=== PATIENT | male | born 1950 | race Caucasian/White ===

== ENCOUNTER 2019-03-17 17:06 | Emergency (ER) | payer MEDICARE ==
[~2019-03-17] VITALS: Ht 188 cm; Wt 108.9 kg
--- NOTE | 2019-03-17 17:27 | ED Neurological Problem ---
General Chief Complaint: Neuro-Stroke Like Symptoms Stated Complaint: STROKE LIKE SYMPTOMS Source: patient Exam Limitations: no limitations History of Present Illness Date Seen by Provider: Mar 17, 2019 Time Seen by Provider: 17:22 Initial Comments To ER per private vehicle from home with reports of strokelike symptoms. This began this morning about 10 or 10:30 AM while he was in [place] with his at a swim meet. He noticed that he was having some trouble walking because of dizziness and he felt as though one of his legs (cannot recall which one) didn't seem to work as well as the other. He feels some numbness around the left side of his mouth beginning 30 minutes ago, a progression of the gait abnormal ity beginning 30 minutes ago as well. He also noticed himself just recently about 30 minutes ago to have some difficulty swallowing water. 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 He did see his primary care provider Dr. Garcia about one hour ago for these symptoms. Timing/Duration: other Severity: moderate Associated Symptoms: No confusion, No fatigue, No fever/chills, No insomnia, No loss of consciousness, No muscle spasms, No nausea/vomiting, No numbness in legs/feet, No paresthesia, No ringing in ears, No seizures, No slurred speech, No tingling in legs/feet; trouble walking; No vision changes Allergies and Home Medications Allergies Coded Allergies: No Known Drug Allergies (Unverified , 03/17/19) Patient Home Medication List Home Medication List Reviewed: Yes Review of Systems Review of Systems Constitutional: see HPI Eyes: No Symptoms Reported Ears, Nose, Mouth, Throat: no symptoms reported Respiratory: no symptoms reported Cardiovascular: no symptoms reported Genitourinary: no symptoms reported Musculoskeletal: no symptoms reported Skin: no symptoms reported Psychiatric/Neurological: See HPI Endocrine: No Symptoms Reported Hematologic/Lymphatic: No Symptoms Reported Past Zalglsb-Zvknay-Shoczu Hx Patient Social History Recent Foreign Travel: No Contact w/Someone Who Travel: No Physical Exam Vital Signs Vital Signs - First Documented 03/17/19 03/17/19 17:10 20:28 Temp 96.7 Pulse 72 Resp 16 B/P (MAP) 164/85 (111) Pulse Ox 99 O2 Delivery Room Air Capillary Refill : Height, Weight, BMI Height: '" Weight: lbs. oz. kg; BMI Method: General Appearance: WD/WN, no apparent distress HEENT: PERRL/EOMI, normal ENT inspection, TMs normal, other (no nystagmus) Neck: non-tender Respiratory: normal breath sounds, no respiratory distress, no accessory muscle use Cardiovascular: regular rate, rhythm, no murmur, other (sinus at 70s. BP 160s systolic. ) Gastrointestinal: normal bowel sounds, non tender, soft Extremities: normal range of motion, non-tender Neurologic/Psychiatric: alert, normal mood/affect, oriented x 3 Crainal Nerves: normal hearing, normal speech, PERRL Coordination/Gait: normal finger to nose Motor/Sensory: no motor deficit, no sensory deficit Skin: normal color, warm/dry Despite his reports, strength of both lower extremities is 5 out of 5. There is no ataxia. NIH stroke scale on arrival is 0 Stroke Onset of Symptoms Date of Onset of Symptoms: Mar 17, 2019 Time of Symptom Onset: 10:00 Onset of Symptoms: Yes Symptoms onset unknown: No NIH Stroke Scale Assessment Select: Initial Level of Consciousness: 0=Alert (0), Level of Consciousness- Questions: 0=Answers both month/age (0), LOC Commands: 0=Performs both tasks (0), Gaze: Normal (0), Visual Rodriguez: 0=No visual loss (0), Facial Movement (Facial Paresis): 0=Normal symmetrical mnt (0), Motor Function-Arms Right: 0=No drift (0), Motor Function-Arms Left: 0=No drift (0), Motor Function-Legs Right: 0=No drift (0), Motor Function-Legs Left: 0=No drift (0), Limb Ataxia: 0=Absent (0), Sensory: 0=Normal:no loss (0), Best Language: 0=No aphasia (0), Dysarthria: 0=Normal (0), Extinction & Inattention: 0=No abnormality (0), Total: 0 Stroke Thrombolytic Exclusion Age 18 or Over: Yes Acute intenal hemorrhage: No History of CVA: No Uncontrolled Coagulation Defec: No Intracranial Hemorrhage: No Severe Hypertension: No GI or Bleed: No Subarachnoid Hemorrhage: No Intracranial Neoplasm/Aneurysm: No Oral Anticoagulants: Yes Surgery or Trauma: No Recent CPR: No Diabetic Hemorrhagic Retinopat: No Organ Biopsy: No Recent Obstetric Delivery: No Glucose: No Significant Hepatic Dysfunctio: No NIH Stoke Scale >22: No Bacterial Endocarditis: No Pericarditis: No Improving Symptoms: No Platelets: No TPA Contraindication: No Progress/Results/Core Measures Results/Orders Lab Results Laboratory Tests Test 03/17/19 17:10 03/17/19 17:12 03/17/19 19:19 Range/Units White Blood Count 10.4 4.3-11.0 10^3/uL Red Blood Count 4.54 4.35-5.85 10^6/uL Hemoglobin 13.4 13.3-17.7 G/DL Hematocrit 41 40-54 % Mean Corpuscular Volume 89 80-99 FL Mean Corpuscular Hemoglobin 30 25-34 PG Mean Corpuscular Hemoglobin Concent 33 32-36 G/DL Red Cell Distribution Width 14.4 10.0-14.5 % Platelet Count 236 130-400 10^3/uL Mean Platelet Volume 10.1 7.4-10.4 FL Neutrophils (%) (Auto) 66 42-75 % Lymphocytes (%) (Auto) 24 12-44 % Monocytes (%) (Auto) 9 0-12 % Eosinophils (%) (Auto) 1 0-10 % Basophils (%) (Auto) 0 0-10 % Neutrophils # (Auto) 6.9 1.8-7.8 X 10^3 Lymphocytes # (Auto) 2.5 1.0-4.0 X 10^3 Monocytes # (Auto) 0.9 0.0-1.0 X 10^3 Eosinophils # (Auto) 0.1 0.0-0.3 10^3/uL Basophils # (Auto) 0.0 0.0-0.1 10^3/uL Prothrombin Time 24.7 H 12.2-14.7 SEC INR Comment 2.1 H 0.8-1.4 Activated Partial Thromboplast Time 34 24-35 SEC D-Dimer 2.03 H 0.00-0.49 UG/ML Sodium Level 139 135-145 MMOL/L Potassium Level 4.2 3.6-5.0 MMOL/L Chloride Level 106 98-107 MMOL/L Carbon Dioxide Level 20 L 21-32 MMOL/L Anion Gap 13 5-14 MMOL/L Blood Urea Nitrogen 20 H 7-18 MG/DL Creatinine 1.81 H 0.60-1.30 MG/DL Estimat Glomerular Filtration Rate 37 BUN/Creatinine Ratio 11 Glucose Level 132 H 70-105 MG/DL Calcium Level 9.1 8.5-10.1 MG/DL Corrected Calcium 8.9 8.5-10.1 MG/DL Total Bilirubin 0.5 0.1-1.0 MG/DL Aspartate Amino Transf (AST/SGOT) 26 5-34 U/L Alanine Aminotransferase (ALT/SGPT) 16 0-55 U/L Alkaline Phosphatase 84 40-136 U/L Troponin I < 0.028 <0.028 NG/ML Total Protein 7.4 6.4-8.2 GM/DL Albumin 4.2 3.2-4.5 GM/DL Serum Alcohol < 10 <10 MG/DL Glucometer 127 H 70-110 MG/DL Urine Color YELLOW Urine Clarity CLEAR Urine pH 7 5-9 Urine Specific [place] 1.010 L 1.016-1.022 Urine Protein 2+ H NEGATIVE Urine Glucose (UA) NEGATIVE NEGATIVE Urine Ketones 1+ H NEGATIVE Urine Nitrite NEGATIVE NEGATIVE Urine Bilirubin NEGATIVE NEGATIVE Urine Urobilinogen NORMAL NORMAL MG/DL Urine Leukocyte Esterase 1+ H NEGATIVE Urine RBC (Auto) 2+ H NEGATIVE Urine RBC 5-10 H /HPF Urine WBC 0-2 /HPF Urine Squamous Epithelial Cells 0-2 /HPF Urine Crystals NONE /LPF Urine Bacteria TRACE /HPF Urine Casts NONE /LPF Urine Mucus SMALL H /LPF Urine Culture Indicated NO Urine Opiates Screen NEGATIVE NEGATIVE Urine Oxycodone Screen NEGATIVE NEGATIVE Urine Methadone Screen NEGATIVE NEGATIVE Urine Propoxyphene Screen NEGATIVE NEGATIVE Urine Barbiturates Screen NEGATIVE NEGATIVE Ur Tricyclic Antidepressants Screen NEGATIVE NEGATIVE Urine Phencyclidine Screen NEGATIVE NEGATIVE Urine Amphetamines Screen NEGATIVE NEGATIVE Urine Methamphetamines Screen NEGATIVE NEGATIVE Urine Benzodiazepines Screen NEGATIVE NEGATIVE Urine Cocaine Screen NEGATIVE NEGATIVE Urine Cannabinoids Screen NEGATIVE NEGATIVE My Orders Orders - TUAN MONTEIRO HAND UMBRELLA TIPPER Cbc With Automated Diff (03/17/19 17:21) Protime With Inr (03/17/19 17:21) Partial Thromboplastin Time (03/17/19 17:21) Comprehensive Metabolic Panel (03/17/19 17:21) Fibrin Degradation Products (03/17/19 17:21) Troponin I (03/17/19 17:21) Ua Culture If Indicated (03/17/19 17:21) Chest 1 View, Ap/Pa Only (03/17/19 17:21) Ekg Tracing (03/17/19 17:21) Accucheck Stat ONCE (03/17/19 17:21) Ed Iv/Invasive Line Start (03/17/19 17:21) Ed Iv/Invasive Line Start (03/17/19 17:21) Vital Signs Stroke Patient Q15M (03/17/19 17:21) Ct Head Wo-R/O Stroke (03/17/19 17:21) O2 (03/17/19 17:21) Intake & Output 06,14,22 (03/17/19 17:21) Monitor-Rhythm Ecg Trace Only (03/17/19 17:21) Dysphagia Screening Tool (03/17/19 17:21) Post Thrombolytic Adminstratio (03/17/19 17:21) Alcohol (03/17/19 17:36) Ondansetron Injection (Zofran Injectio (03/17/19 18:00) Lactated Ringers (Lr 1000 Ml Iv Solution (03/17/19 18:15) Famotidine Injection (Pepcid Injection) (03/17/19 18:15) Ondansetron Injection (Zofran Injectio (03/17/19 18:15) Drug Screen Stat (Urine) (03/17/19 19:09) Ns Iv 500 Ml (Sodium Chloride 0.9%) (03/17/19 19:30) Medications Given in ED Current Medications Medications Dose Ordered Sig/Osman Route Start Time Stop Time Status Last Admin Dose Admin Ondansetron HCl 8 mg ONCE ONCE IVP 03/17/19 18:00 03/17/19 18:01 DC 03/17/19 17:56 8 MG Vital Signs/I&O 03/17/19 03/17/19 17:10 20:28 Temp 96.7 98.4 Pulse 72 64 Resp 16 18 B/P (MAP) 164/85 (111) 142/86 (104) Pulse Ox 99 97 O2 Delivery Room Air Diagnostic Imaging Diagonstic Imaging: Xray Plain Films/CT/US/NM/MRI: chest Comments NAME: RUSSEL GUERRERO [facility] REC#: [id number] PT STATUS: REG ER : 1950 PHYSICIAN: TUAN MONTEIRO APRN ADMIT DATE: 03/17/19/ER Draft Date of Exam:03/17/19 CHEST 1 VIEW, AP/PA ONLY INDICATION: Difficulty walking. TIME OF EXAM: 05:30 p.m. COMPARISON: No prior studies are available for comparison. FINDINGS: Heart size is normal. There is some minimal density in the right mid lung. Otherwise, the lungs are clear. Pulmonary vascularity is normal. No effusion or pneumothorax is seen. IMPRESSION: Minimal patchy density in right mid lung which may indicate mild pneumonia or atelectasis. The study is otherwise unremarkable. Dictated on workstation # [id number] Dict: 03/17/19 1740 Trans: 03/17/19 1744 [id number] Interpreted by: SHARLA TYSON MD Electronically signed by: Departure Communication (Admissions) Family Conversation 2011-he states that he overall feels much better, no residual tingling around his lips, chest x-ray shows suggestion of pneumonia right middle lobe, patient denies fevers chills, or shortness of breath. This is likely atelectasis and I will not treat with antibiotic. He feels well enough to go home, have the nurse get him up to walk him ensure that he can ambulate without difficulty or weakness, then discharged to home. The repeat NIH just prior to discharge is still 0. Blood pressure is 140s over 70s, he feels better, he is able to walk up and down the hallway without assistance. He is able to drink a glass of water without any difficulty. States he only lives 5 minutes from the hospital, assures she'll come back with him if they notice any recurrent symptoms. This could represent TIA versus heat illness, suspects he related illness. NAME: RUSSEL GUERRERO [facility] REC#: [id number] PT STATUS: REG ER : 1950 PHYSICIAN: TUAN MONTEIRO APRN ADMIT DATE: 03/17/19/ER Draft Date of Exam:03/17/19 CHEST 1 VIEW, AP/PA ONLY INDICATION: Difficulty walking. TIME OF EXAM: 05:30 p.m. COMPARISON: No prior studies are available for comparison. FINDINGS: Heart size is normal. There is some minimal density in the right mid lung. Otherwise, the lungs are clear. Pulmonary vascularity is normal. No effusion or pneumothorax is seen. IMPRESSION: Minimal patchy density in right mid lung which may indicate mild pneumonia or atelectasis. The study is otherwise unremarkable. Dictated on workstation # [id number] Dict: 03/17/19 1740 Trans: 03/17/19 1744 [id number] Interpreted by: SHARLA TYSON MD Electronically signed by: Impression Primary Impression: Weak Additional Impression: TIA (transient ischemic attack) Disposition: 01 HOME, SELF-CARE Condition: Stable Departure-Patient Inst. Decision time for Depature: 20:13 Referrals: CHARLENE GARCIA MD (PCP/Family) Primary Care Physician Patient Instructions: Generalized Weakness, Transient Ischemic Attack Add. Discharge Instructions: 1. Return to ER for any recurrent or worsening symptoms. Follow-up with your doctor to call tomorrow to make an appointment to be seen. Continue all current medications. All discharge instructions reviewed with patient and/or family. Voiced understanding. TUAN MONTEIRO APRN Mar 17, 2019 17:26
[2019-03-17] MEDS ORDERED: PRAV40TA2 (17:40)
[2019-03-17] MEDS ORDERED: WARF3TAB56 (17:40)
--- NOTE | 2019-03-17 17:45 | Diagnostic Imaging Report ---
INDICATION: Difficulty walking. TIME OF EXAM: 05:30 p.m. COMPARISON: No prior studies are available for comparison. FINDINGS: Heart size is normal. There is some minimal density in the right mid lung. Otherwise, the lungs are clear. Pulmonary vascularity is normal. No effusion or pneumothorax is seen. IMPRESSION: Minimal patchy density in right mid lung which may indicate mild pneumonia or atelectasis. The study is otherwise unremarkable. Dictated by: Dictated on workstation # [id number]
--- NOTE | 2019-03-17 17:48 | Diagnostic Imaging Report ---
PROCEDURE: CT head wo r/o stroke. TECHNIQUE: Multiple contiguous axial images were obtained through the brain without the use of intravenous contrast. Auto Exposure Controls were utilized during the CT exam to meet ALARA standards for radiation dose reduction. INDICATION: Difficulty walking and nausea. COMPARISON: No prior studies are available for comparison. FINDINGS: Ventricles and sulci are within normal limits. No sulcal effacement or midline shift is seen. No acute intra-axial or extra-axial hemorrhage is detected. Cisterns are patent. Visualized paranasal sinuses are clear. IMPRESSION: No acute intracranial process is detected. Results were called to Jorje Byrne nurse practitioner in Emergency Department at 05:42 p.m. Dictated by: Dictated on workstation # [id number]
[2019-03-17 17:49] LABS: BASOPHILS % (AUTO) 0 % (0-10); EOSINOPHILS # (AUTO) 0.1 10^3/uL (0.0-0.3); EOSINOPHILS % (AUTO) 1 % (0-10); HEMATOCRIT 41 % (40-54); HEMOGLOBIN 13.4 G/DL (13.3-17.7); LYMPHOCYTES # (AUTO) 2.5 X 10^3 (1.0-4.0); LYMPHOCYTES % (AUTO) 24 % (12-44); MEAN CORPUSCULAR HEMOGLOBIN 30 PG (25-34); MEAN CORPUSCULAR HGB CONC 33 G/DL (32-36); MEAN CORPUSCULAR VOLUME 89 FL (80-99); MEAN PLATELET VOLUME 10.1 FL (7.4-10.4); MONOCYTES # (AUTO) 0.9 X 10^3 (0.0-1.0); MONOCYTES % (AUTO) 9 % (0-12); NEUTROPHILS # (AUTO) 6.9 X 10^3 (1.8-7.8); NEUTROPHILS % (AUTO) 66 % (42-75); PLATELET COUNT 236 10^3/uL (130-400); RED CELL DISTRIBUTION WIDTH 14.4 % (10.0-14.5); WHITE BLOOD COUNT 10.4 10^3/uL (4.3-11.0)
[2019-03-17 17:56] LABS: FIBRIN DEGRADATION PRODUCTS 2.03 UG/ML (0.00-0.49); INR 2.1 (0.8-1.4); PROTHROMBIN TIME PATIENT 24.7 SEC (12.2-14.7)
[2019-03-17] MEDS ORDERED: ONDANSETRON 4 MG/2 ML (SDV) Z0FRAN IVP ONE ×2 (18:00→18:15)
--- NOTE | 2019-03-17 18:00 | NUR ---
pt reports the numbness around his mouth is gone and he reports he thinks his speach is normal for him. Dipti Byrne informed.
[2019-03-17 18:03] LABS: ALANINE AMINOTRANSFERASE 16 U/L (0-55); ALBUMIN 4.2 GM/DL (3.2-4.5); ALKALINE PHOSPHATASE 84 U/L (40-136); BILIRUBIN,TOTAL 0.5 MG/DL (0.1-1.0); BUN/CREATININE RATIO 11; CALCIUM 9.1 MG/DL (8.5-10.1); CARBON DIOXIDE 20 MMOL/L (21-32); CHLORIDE 106 MMOL/L (98-107); CREATININE SERUM 1.81 MG/DL (0.60-1.30); GFR ESTIMATED 37; GLUCOSE 132 MG/DL (70-105); POTASSIUM 4.2 MMOL/L (3.6-5.0); SODIUM 139 MMOL/L (135-145); TOTAL PROTEIN 7.4 GM/DL (6.4-8.2)
[2019-03-17] MEDS ORDERED: LACTATED RINGERS 1,000 ML IV SCH (18:15)
[2019-03-17] MEDS ORDERED: FAMOTIDINE 20MG/2ML IV (PEPCID) IVP ONE (18:15)
--- OUTSIDE RECORDS SUMMARY | 2019-03-17 19:03 | XMS REPORT ---
Author Tania Watts [facility] eClinicalWorks Address Unknown Phone Unavailable Care Team Providers Care Benefits Technician Name Role Phone Tania Ma CP Unavailable Allergies No Known Allergies Problems Problem Type Condition ICD-9 Code Onset Dates Condition Status Problem Chest pain, unspecified 786.50 Inactive Problem Unspecified venous (peripheral) insufficiency 459.81 Active Problem Problems related to high-risk sexual behavior V69.2 Active Problem Anticoagulated V58.61 Active Problem Snoring 786.09 Active Problem Left hip pain 719.45 Active Problem Venous embolism and thrombosis of deep vessels of proximal lower 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.41 Active Problem Personal history of venous thrombosis and embolism V12.51 Inactive Problem Venous insufficiency 459.81 Active Problem History of DVT (deep vein thrombosis) V12.51 Active Assessment Anticoagulated V58.61 Active Problem Rdncsgcnat-ewccslm-tcyzrmzez, combined [DTP] [DtaP] V06.1 Inactive Assessment Venous embolism and thrombosis of deep vessels of proximal lower 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.41 Active Problem Rosacea 695.3 Inactive Problem Impacted cerumen 380.4 Inactive Problem Counseling NOS V65.40 Inactive Problem Other and unspecified hyperlipidemia 272.4 Active Problem Need for prophylactic vaccination and inoculation, Influenza V04.81 Inactive Problem Venous embolism and thrombosis of other specified veins 453.8 Active Medications Medication Code System Code Instructions Start Date End Date Status Dosage Metronidazole [facility] 80259739964 0.75 APPLY EXTERNALLY DAILY NEEDED Multi-Vitamin [facility] [address]-72 Oral 1 qd without vitamin k Warfarin Sodium [facility] 86407957068 5 TAKE ONE TABLET BY MOUTH 5 TIMES A WEEK ON SUN, MON, WED, SAT, SAT. ALONG WITH 3MG. Cyclobenzaprine HCl [facility] [address]-18 10 MG Orally Three times a day Sep 30, 2014 November 26, 2014 1 tablet Coumadin [facility] [address]-27 3 MG Oral 1 (one) daily as directed Sep 28, 2013 not defined Metrogel [facility] [address]-71 0.75 % External 1 daily January 05, 2009 apply daily as directed Voltaren [facility] [address]-03 1 % Transdermal four times daily Jun 01, 2014 as directed Clobetasol Propionate [facility] [address]-41 0.05 % Externally Twice a day Jun 01, 2014 1 application to affected area Lortab [facility] [address]-30 5-325 MG Orally three times a day Oct 13, 2014 1 tablet as needed Alive [employer] [facility] [address]48-76234 Oral not defined Propranolol HCl [facility] [address]-95 10 Oral one tablet prn Apr 02, 2008 called in to [facility] at [address] Procedures Procedure Coding System Code Date Billed by outside source CPT-4 NOBLL November 04, 2014 Results No Known Results Summary Purpose eClinicalWorks Submission
--- OUTSIDE RECORDS SUMMARY | 2019-03-17 19:03 | XMS REPORT ---
Author Tania Watts [facility] eClinicalWorks Address Unknown Phone Unavailable Care Team Providers Care Auxiliary Engineer Name Role Phone Tania Ma CP Unavailable [...] DVT (deep vein thrombosis) V12.51 Active Assessment Venous embolism and thrombosis of deep vessels of proximal lower 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.41 Active Problem Mojundiniw-ibbzokr-rpxvdggfe, combined [DTP] [DtaP] V06.1 Inactive Assessment Anticoagulated V58.61 Active Assessment History of DVT (deep vein thrombosis) V12.51 Active Problem Rosacea 695.3 Inactive Problem Impacted cerumen 380.4 Inactive Problem Counseling NOS V65.40 Inactive Problem Other and unspecified hyperlipidemia 272.4 Active Problem Need for prophylactic vaccination and inoculation, Influenza V04.81 Inactive Problem Venous embolism and thrombosis of other specified veins 453.8 Active Medications Medication Code System Code Instructions Start Date End Date Status Dosage Multi-Vitamin [facility] [address]-20 Oral 1 qd without vitamin k Propranolol HCl [facility] [address]-60 10 Oral one tablet prn Apr 02, 2008 called in to [facility] at [address] [facility] [address]-17 5-325 MG Orally three times a day Oct 13, 2014 1 tablet as needed Cyclobenzaprine HCl [facility] [address]-15 10 MG Orally Three times a day Sep 30, 2014 November 26, 2014 1 tablet Metrogel [facility] [address]-60 0.75 % External 1 daily January 05, 2009 apply daily as directed Metronidazole [facility] 94606297800 0.75 APPLY EXTERNALLY DAILY NEEDED Voltaren [facility] [address]-15 1 % Transdermal four times daily Jun 01, 2014 as directed Warfarin Sodium [facility] 33271752140 5 TAKE ONE TABLET BY MOUTH 5 TIMES A WEEK ON SUN, MON, WED, FRI, SAT. ALONG WITH 3MG. Clobetasol Propionate [facility] [address]-48 0.05 % Externally Twice a day Jun 01, 2014 1 application to affected area [employer] [facility] [address] Oral not defined Coumadin [facility] [address]-64 3 MG Oral 1 (one) daily as directed Sep 28, 2013 not defined Procedures Procedure Coding System Code Date Billed by outside source CPT-4 NOBLL November 22, 2014 Results No Known Results Summary Purpose eClinicalWorks Submission
--- OUTSIDE RECORDS SUMMARY | 2019-03-17 19:03 | XMS REPORT ---
Author Tanai Watts [facility] eClinicalWorks Address Unknown Phone Unavailable Care Team Providers Care Salmon Gillnet Vessel Operator Name Role Phone Tania Ma CP Unavailable Allergies No Known Allergies Problems Problem Type Condition Code Onset Dates Condition Status Problem Venous insufficiency 459.81 Active Problem Left hip pain 719.45 Active Problem Snoring 786.09 Active Problem Acute venous embolism and thrombosis of superficial veins of upper extremity I82.619 Active Assessment Acute venous embolism and thrombosis of superficial veins of upper extremity I82.619 Active Problem Anticoagulated Z79.01 Active Problem Acute thromboembolism of deep veins of proximal leg I82.4Y9 Active Problem Obesity 278.00 Active Problem DJD (degenerative joint disease) 715.90 Active Problem Personal history of other venous thrombosis and embolism Z86.718 Active Problem History of pulmonary embolus (PE) V12.55 Active Problem Counseling NOS V65.40 Inactive Problem Need for prophylactic vaccination and inoculation, Influenza V04.81 Inactive Assessment Anticoagulated Z79.01 Active Problem Cclmrcgdad-ahbesfm-khqzwvwqd, combined [DTP] [DtaP] V06.1 Inactive Problem Other and unspecified hyperlipidemia 272.4 Active Problem Chest pain, unspecified 786.50 Inactive Problem Rosacea 695.3 Inactive Problem Problems related to high-risk sexual behavior V69.2 Active Problem Impacted cerumen 380.4 Inactive Problem Personal history of venous thrombosis and embolism V12.51 Inactive Medications Medication Code System Code Instructions Start Date End Date Status Dosage Metrogel [facility] [address]-29 0.75 % External 1 daily January 05, 2009 apply daily as directed Aleve [facility] [address]-29 220 MG Orally not defined Promethazine-Codeine [facility] [address]-40 6.25-10 MG/5ML Orally every 6 hrs Aug 24, 2015 5 ml as needed Propranolol HCl [facility] [address]-23 10 Oral one tablet prn Apr 02, 2008 called in to [facility] [place] Clobetasol Propionate [facility] [address]-08 0.05 % Externally Twice a day Jun 01, 2014 1 application to affected area Lortab [facility] [address]-81 5-325 MG Orally three times a day Oct 13, 2014 1 tablet as needed Warfarin Sodium [facility] [address]-52 6 MG Orally Once a day TAKE ONE TABLET BY MOUTH 5 TIMES A WEEK ON SUN, MON, SAT, SAT, SAT. ALONG WITH 3MG. Warfarin Sodium [facility] [address]-11 1 MG Orally Once a day 1 tablet Voltaren [facility] [address]-09 1 % Transdermal four times daily Jun 01, 2014 as directed Procedures Procedure Coding System Code Date Billed by outside source CPT-4 NOBLL Sep 16, 2015 Results Name Result Date Reference Range Unit Abnormality Flag Prothrombin Time (PT, INR) 98652 ----INR 2.8 20150916 0.8-1.2 H ----Prothrombin Time 29.3 20150916 9.1-12.0 sec H Summary Purpose eClinicalWorks Submission
--- OUTSIDE RECORDS SUMMARY | 2019-03-17 19:03 | XMS REPORT ---
Author Tania Watts Organization eClinicalWorks Address Unknown Phone Unavailable Care Team Providers Care Legal Document Specialist Name Role Phone Tania Ma CP Unavailable [...] DVT (deep vein thrombosis) V12.51 Active Assessment Osteoarthritis of left hip 715.95 Active Problem Aouyonlwla-hqaehiq-fgpziwhsm, combined [DTP] [DtaP] V06.1 Inactive Problem Rosacea 695.3 Inactive Problem Impacted cerumen 380.4 Inactive Problem Counseling NOS V65.40 Inactive Problem Other and unspecified hyperlipidemia 272.4 Active Problem Need for prophylactic vaccination and inoculation, Influenza V04.81 Inactive Problem Venous embolism and thrombosis of other specified veins 453.8 Active Medications No Known Medications Results No Known Results Summary Purpose eClinicalWorks Submission
--- OUTSIDE RECORDS SUMMARY | 2019-03-17 19:03 | XMS REPORT ---
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 Active Problem Obesity 278.00 Active Assessment Anticoagulated V58.61 Active Problem DJD (degenerative joint disease) 715.90 Active Assessment Venous embolism and thrombosis of other specified veins 453.8 Active Problem History of pulmonary embolus (PE) V12.55 Active Problem Snoring 786.09 Active Problem Venous insufficiency 459.81 Active Problem Left hip pain 719.45 Active Problem Anticoagulated V58.61 Active Problem Need for prophylactic vaccination and inoculation, Influenza V04.81 Inactive Problem Rosacea 695.3 Inactive Problem Cltiovszuo-cbufrrf-sxeflsmmx, combined [DTP] [DtaP] V06.1 Inactive Problem Counseling NOS V65.40 Inactive Problem Venous embolism and thrombosis of other specified veins 453.8 Active Problem Chest pain, unspecified 786.50 Inactive Problem Impacted cerumen 380.4 Inactive Problem Problems related to high-risk sexual behavior V69.2 Active Problem Other and unspecified hyperlipidemia 272.4 Active Problem Unspecified venous (peripheral) insufficiency 459.81 Active Medications Medication Code System Code Instructions Start Date End Date Status Dosage Coumadin [facility] [address]-17 3 MG Oral 1 (one) daily as directed Sep 28, 2013 not defined Multi-Vitamin [facility] [address]-85 Oral 1 qd without vitamin k Warfarin Sodium [facility] [address]-72 6 MG Orally Once a day TAKE ONE TABLET BY MOUTH 5 TIMES A WEEK ON SUN, MON, WED, FRI, SAT. ALONG WITH 3MG. Lortab [facility] [address]-54 5-325 MG Orally three times a day Oct 13, 2014 1 tablet as needed Propranolol HCl [facility] [address]-19 10 Oral one tablet prn Apr 02, 2008 called in [facility] [place] [address] [facility] [address]-14 1 % Transdermal four times daily Jun 01, 2014 as directed Clobetasol Propionate [facility] [address]-51 0.05 % Externally Twice a day Jun 01, 2014 1 application to affected area Coumadin [facility] [address]-62 4 MG Orally Once a day Apr 04, 2015 1 tablet Clindamycin HCl [facility] [address]-29 300 MG Orally every 8 hrs Apr 04, 2015 1 capsule Aleve [facility] [address]-24 220 MG Orally not defined Metrogel [facility] [address]-42 0.75 % External 1 daily January 05, 2009 apply daily as directed Metronidazole [facility] [id number] 0.75 APPLY EXTERNALLY DAILY NEEDED Procedures Procedure Coding System Code Date Billed by outside source CPT-4 NOBLL Apr 12, 2015 Results No Known Results Summary Purpose eClinicalWorks Submission
--- OUTSIDE RECORDS SUMMARY | 2019-03-17 19:03 | XMS REPORT ---
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.41 Active Problem Venous insufficiency 459.81 Active Problem Problems related to high-risk sexual behavior V69.2 Active Problem Chest pain, unspecified 786.50 Inactive Problem Personal history of venous thrombosis and embolism V12.51 Inactive Problem Unspecified venous (peripheral) insufficiency 459.81 Active Assessment Encounter for long-term (current) use of anticoagulants V58.61 Active Problem Toyfhqdiio-tamzngl-qhnrgxliz, combined [DTP] [DtaP] V06.1 Inactive Problem Counseling NOS V65.40 Inactive Assessment History of DVT (deep vein thrombosis) V12.51 Active Problem Need for prophylactic vaccination and inoculation, Influenza V04.81 Inactive Assessment Venous embolism and thrombosis of deep vessels of proximal lower 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.41 Active Problem Rosacea 695.3 Inactive Medications Medication Code System Code Instructions Start Date End Date Status Dosage Propranolol HCl [facility] [address]-83 10 Oral one tablet prn Apr 02, 2008 called in [facility] [place] [address] Verdin Coumadin [facility] [address]-79 3 MG Oral 1 (one) daily as directed Sep 28, 2013 not defined Warfarin Sodium [facility] [address]-50 5 MG Oral smwfsat with a 3mg Sep 21, 2013 total of 8 mg Multi-Vitamin [facility] [address]-67 Oral 1 qd without vitamin k Alive [employer] [facility] [address]-46358 Oral not defined Metronidazole [facility] [id number] 0.75 APPLY EXTERNALLY DAILY NEEDED Clobetasol Propionate [facility] [address]-13 0.05 % Externally Twice a day Jun 01, 2014 1 application to affected area Voltaren [facility] [address]-15 1 % Transdermal four times daily Jun 01, 2014 as directed Metrogel [facility] [address]-39 0.75 % External 1 daily January 05, 2009 apply daily as directed Procedures Procedure Coding System Code Date Billed by outside source CPT-4 NOBLL Sep 15, 2014 Results No Known Results Summary Purpose eClinicalWorks Submission
--- OUTSIDE RECORDS SUMMARY | 2019-03-17 19:03 | XMS REPORT | Referral Summary ---
Author Author [facility] Organization [facility] Address Unknown Phone Unavailable Care Team Providers Care Hospital Unit Coordinator Name Role Phone Tania Ma PCP Encounter [facility] [id number] Date(s): 03/28/15 - 03/28/15 [facility] [address] [place] [address] Final: [facility] Discharge Disposition: 01-Home or Self Care Attending Physician: Tania Ma MD Admitting Physician: Tania Ma MD Vital Signs No data available for this section Problem List No data available for this section Allergies, Adverse Reactions, Alerts No data available for this section Medications No data available for this section Results No data available for this section Immunizations No data available for this section Procedures No data available for this section Social History No data available for this section Assessment and Plan No data available for this section
--- NOTE | 2019-03-17 19:04 | NUR ---
REPORT RECIEVED FROM MAURICE MARCELO. ASSUMED PRIMARY NURSE ROLE.
--- OUTSIDE RECORDS SUMMARY | 2019-03-17 19:04 | XMS REPORT ---
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 Active Problem Obesity 278.00 Active Problem DJD (degenerative joint disease) 715.90 Active Problem History of pulmonary embolus (PE) V12.55 Active Problem Snoring 786.09 Active Problem Venous insufficiency 459.81 Active Problem Left hip pain 719.45 Active Problem Anticoagulated V58.61 Active Problem Need for prophylactic vaccination and inoculation, Influenza V04.81 Inactive Problem Rosacea 695.3 Inactive Problem Vyreufvafj-xykayco-trkpvnvdo, combined [DTP] [DtaP] V06.1 Inactive Problem Counseling NOS V65.40 Inactive Problem Venous embolism and thrombosis of other specified veins 453.8 Active Problem Chest pain, unspecified 786.50 Inactive Problem Impacted cerumen 380.4 Inactive Problem Problems related to high-risk sexual behavior V69.2 Active Problem Other and unspecified hyperlipidemia 272.4 Active Problem Unspecified venous (peripheral) insufficiency 459.81 Active Medications No Known Medications Results No Known Results Summary Purpose eClinicalWorks Submission
--- OUTSIDE RECORDS SUMMARY | 2019-03-17 19:04 | XMS REPORT ---
Author Tania Watts [facility] eClinicalWorks Address Unknown Phone Unavailable Care Team Providers Care Employment Service Specialist Name Role Phone Tania Ma CP [...] Unspecified venous (peripheral) insufficiency 459.81 Active Problem Tbbgrjpitc-qztskfy-azzdqxtwe, combined [DTP] [DtaP] V06.1 Inactive Problem Counseling NOS V65.40 Inactive Problem Need for prophylactic vaccination and inoculation, Influenza V04.81 Inactive Assessment Need for prophylactic vaccination and inoculation against influenza V04.81 Active Problem Rosacea 695.3 Inactive Medications Medication Code System Code Instructions Start Date End Date Status Dosage Warfarin Sodium [facility] [address]-42 5 MG Oral smwfsat with a 3mg Sep 21, 2013 total of 8 mg Coumadin [facility] [address]-13 3 MG Oral 1 (one) daily as directed Sep 28, 2013 not defined [employer] [facility] [address] Oral not defined Propranolol HCl [facility] [address]-36 10 Oral one tablet prn Apr 02, 2008 called in [facility] Multi-Vitamin [facility] [address]-08 Oral 1 qd without vitamin k Metronidazole [facility] [id number] 0.75 APPLY EXTERNALLY DAILY NEEDED Metrogel [facility] [address]-56 0.75 % External 1 daily January 05, 2009 apply daily as directed Procedures Procedure Coding System Code Date IMMUNIZATION ADMIN CPT-4 24548 Jun 01, 2014 Influenza (split), 3 yrs and above CPT-4 41831 Jun 01, 2014 Results No Known Results Immunizations Vaccine Administration Date Flu vaccine no Preserv 3 and > Jun 01, 2014 Summary Purpose eClinicalWorks Submission
--- OUTSIDE RECORDS SUMMARY | 2019-03-17 19:04 | XMS REPORT ---
Author Godwin Anderson [facility] eClinicalWorks Address Unknown Phone Unavailable Care Team Providers Care Garde Manger Name Role Phone Godwin Briggs CP Unavailable Allergies, Adverse Reactions, Alerts Substance Reaction Event Type N.K.D.A. Info Not Available Non Drug Allergy Problems Problem Type Condition Code Onset Dates Condition Status Problem Other and unspecified hyperlipidemia 272.4 Active Problem Problems related to high-risk sexual behavior V69.2 Active Problem Chest pain, unspecified 786.50 Inactive Problem Obesity 278.00 Active Problem DJD (degenerative joint disease) 715.90 Active Problem History of pulmonary embolus (PE) V12.55 Active Problem Venous insufficiency 459.81 Active Problem Personal history of venous thrombosis and embolism V12.51 Inactive Problem Left hip pain 719.45 Active Problem Snoring 786.09 Active Assessment Encounter for long-term (current) use of anticoagulants V58.61 Active Problem Counseling NOS V65.40 Inactive Problem Need for prophylactic vaccination and inoculation, Influenza V04.81 Inactive Assessment Edema of left foot 782.3 Active Problem Rosacea 695.3 Inactive Problem Jljtozkrme-azpnznv-hurjiriev, combined [DTP] [DtaP] V06.1 Inactive Problem Impacted cerumen 380.4 Inactive Medications Medication Code System Code Instructions Start Date End Date Status Dosage Metrogel [facility] [address]-89 0.75 % External 1 daily January 05, 2009 apply daily as directed Voltaren [facility] [address]-05 1 % Transdermal four times daily Jun 01, 2014 as directed Propranolol HCl [facility] [address]-13 10 Oral one tablet prn Apr 02, 2008 called in to [facility] at [place] [address] Metronidazole [facility] 45859266836 0.75 APPLY EXTERNALLY DAILY NEEDED Warfarin Sodium [facility] 76573680761 5 TAKE ONE TABLET BY MOUTH 5 TIMES A WEEK ON SUN, MON, WED, FRI, SAT. ALONG WITH 3MG. Aleve [facility] [address]-55 220 MG Orally not defined Coumadin [facility] [address]-41 3 MG Oral 1 (one) daily as directed Sep 28, 2013 not defined Multi-Vitamin [facility] [address]-16 Oral 1 qd without vitamin k Clobetasol Propionate [facility] [address]-44 0.05 % Externally Twice a day Jun 01, 2014 1 application to affected area Lortab [facility] [address]-49 5-325 MG Orally three times a day Oct 13, 2014 1 tablet as needed Procedures Procedure Coding System Code Date Office Visit, Est Pt., Level 3 CPT-4 36746 March 28, 2015 DOC MEDS VERIFIED W/PT OR RE CPT-4 G8427 March 28, 2015 Billed by outside source CPT-4 NOBLL March 28, 2015 Vital Signs Date/Time: March 28, 2015 Blood Pressure Systolic 140 mm Hg Weight 241 lbs Height 73 in Oximetry 96 % Respiratory Rate 16 /min Cardiac Monitoring Heart Rate 73 /min Blood Pressure Diastolic 78 mm Hg BMI 31.79 Index Results No Known Results Summary Purpose eClinicalWorks Submission
--- OUTSIDE RECORDS SUMMARY | 2019-03-17 19:04 | XMS REPORT ---
Author Tania Watts Organization eClinicalWorks Address Unknown Phone Unavailable Care Team Providers Care Armored Service Technician Name Role Phone Tania Ma CP [...] vaccination and inoculation, Influenza V04.81 Inactive Problem Xicjveowbc-xgjopxe-jooxersus, combined [DTP] [DtaP] V06.1 Inactive Problem Other and unspecified hyperlipidemia 272.4 Active Problem Chest pain, unspecified 786.50 Inactive Problem Rosacea 695.3 Inactive Problem Problems related to high-risk sexual behavior V69.2 Active Problem Impacted cerumen 380.4 Inactive Problem Personal history of venous thrombosis and embolism V12.51 Inactive Medications Medication Code System Code Instructions Start Date End Date Status Dosage Coumadin [facility] [address]-41 3 MG Oral 1 (one) daily as directed Sep 28, 2013 not defined Results No Known Results Summary Purpose eClinicalWorks Submission
--- OUTSIDE RECORDS SUMMARY | 2019-03-17 19:04 | XMS REPORT ---
Author Tania Watts [facility] eClinicalWorks Address Unknown Phone Unavailable Care Team Providers Care Cream Ripener Name Role Phone Tania Ma Unavailable Allergies No Known Allergies Problems Problem [...] DJD (degenerative joint disease) 715.90 Active Assessment Encounter for long-term (current) use of anticoagulants V58.61 Active Problem History of pulmonary embolus (PE) V12.55 Active Problem Snoring 786.09 Active Problem Venous insufficiency 459.81 Active Problem Left hip pain 719.45 Active Problem Anticoagulated V58.61 Active Problem Need for prophylactic vaccination and inoculation, Influenza V04.81 Inactive Problem Rosacea 695.3 Inactive Problem Zubzinkavo-lfdfzef-llcxpmmxm, combined [DTP] [DtaP] V06.1 Inactive Problem Counseling [...] Instructions Start Date End Date Status Dosage Clobetasol Propionate [facility] [address]-66 0.05 % Externally Twice a day Jun 01, 2014 1 application to affected area Metronidazole [facility] 98839964287 0.75 APPLY EXTERNALLY DAILY NEEDED Warfarin Sodium [facility] 49073070657 5 TAKE ONE TABLET BY MOUTH 5 TIMES A WEEK ON SUN, MON, WED, FRI, SAT. ALONG WITH 3MG. Lortab [facility] [address]-59 5-325 MG Orally three times a day Oct 13, 2014 1 tablet as needed Voltaren [facility] [address]-44 1 % Transdermal four times daily Jun 01, 2014 as directed Multi-Vitamin [facility] [address]-75 Oral 1 qd without vitamin k Propranolol HCl [facility] [address]-91 10 Oral one tablet prn Apr 02, 2008 called [facility] at [place] [address] [facility] [address]-68 0.75 % External 1 daily January 05, 2009 apply daily as directed Alive [employer] [facility] [address]58 Oral not defined Coumadin [facility] [address]-66 3 MG Oral 1 (one) daily as directed Sep 28, 2013 not defined Procedures Procedure Coding System Code Date Billed by outside source CPT-4 NOBLL March 03, 2015 Results Name Result Date Reference Range Unit Abnormality Flag Prothrombin Time (PT, INR) 98973 Summary Purpose eClinicalWorks Submission
--- OUTSIDE RECORDS SUMMARY | 2019-03-17 19:04 | XMS REPORT ---
Author Tania Watts Organization eClinicalWorks Address Unknown Phone Unavailable Care Team Providers Care Vacuum Bottle Assembler Name Role Phone Tania Ma CP Unavailable [...] V04.81 Inactive Problem Rosacea 695.3 Inactive Problem Qbeerqkaup-ednymtr-viytyjwsb, combined [DTP] [DtaP] V06.1 Inactive Problem Counseling [...]
--- OUTSIDE RECORDS SUMMARY | 2019-03-17 19:04 | XMS REPORT ---
Author Godwin Anderson [facility] eClinicalWorks Address Unknown Phone Unavailable Care Team Providers Care System Analyst Name Role Phone Godwin Briggs Unavailable Allergies, Adverse Reactions, Alerts Substance Reaction [...] vaccination and inoculation, Influenza V04.81 Inactive Assessment URI (upper respiratory infection) J06.9 Active Problem Uzpjbysjcd-jqfywyf-zcqtkjuhr, combined [DTP] [DtaP] V06.1 Inactive Problem Other and unspecified hyperlipidemia 272.4 Active Problem Chest pain, unspecified 786.50 Inactive Problem Rosacea 695.3 Inactive Problem Problems related to high-risk sexual behavior V69.2 Active Problem Impacted cerumen 380.4 Inactive Problem Personal history of venous thrombosis and embolism V12.51 Inactive Medications Medication Code System Code Instructions Start Date End Date Status Dosage Aleve [facility] [address]-45 220 MG Orally not defined Warfarin Sodium [facility] [address]-72 6 MG Orally Once a day TAKE ONE TABLET BY MOUTH 5 TIMES A WEEK ON SUN, MON, WED, FRI, SAT. ALONG WITH 3MG. Warfarin Sodium [facility] [address]-04 1 MG Orally Once a day 1 tablet Metrogel [facility] [address]-63 0.75 % External 1 daily January 05, 2009 apply daily as directed Lortab [facility] [address]-77 5-325 MG Orally three times a day Oct 13, 2014 1 tablet as needed Clobetasol Propionate [facility] [address]-96 0.05 % Externally Twice a day Jun 01, 2014 1 application to affected area Promethazine-Codeine [facility] [address]-79 6.25-10 MG/5ML Orally every 6 hrs Aug 24, 2015 5 ml as needed Propranolol HCl [facility] [address]-80 10 Oral one tablet prn Apr 02, 2008 called in to [facility] at [place] [address] [facility] [address]-75 1 % Transdermal four times daily Jun 01, 2014 as directed Procedures Procedure Coding System Code Date DOC MEDS VERIFIED W/PT OR RE CPT-4 G8427 Aug 24, 2015 Office Visit, Est Pt., Level 3 CPT-4 54101 Aug 24, 2015 Vital Signs Date/Time: Aug 24, 2015 Blood Pressure Systolic 130 mm Hg Temperature 98.0 F Height 73 in Oximetry 95 % Respiratory Rate 18 /min Cardiac Monitoring Heart Rate 84 /min Blood Pressure Diastolic 86 mm Hg Results No Known Results Summary Purpose eClinicalWorks Submission
--- OUTSIDE RECORDS SUMMARY | 2019-03-17 19:04 | XMS REPORT ---
Author Tania Watts [facility] eClinicalWorks Address Unknown Phone Unavailable Care Team Providers Care Bottom Steep Tender Name Role Phone Tania Ma CP Unavailable Allergies, Adverse Reactions, Alerts Substance Reaction Event Type N.K.D.A. Info Not Available Non Drug Allergy Problems Problem Type Condition ICD-9 Code Onset Dates Condition Status Assessment DJD (degenerative joint disease) 715.90 Active Problem Problems related to high-risk sexual behavior V69.2 Active Assessment Obesity 278.00 Active Problem Unspecified venous (peripheral) insufficiency 459.81 Active Assessment History of pulmonary embolus (PE) V12.55 Active Problem Personal history of venous thrombosis and embolism V12.51 Inactive Problem History of DVT (deep vein thrombosis) V12.51 Active Problem Venous embolism and thrombosis of deep vessels of proximal lower 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.41 Active Problem Obesity 278.00 Active Problem DJD (degenerative joint disease) 715.90 Active Assessment Other and unspecified hyperlipidemia 272.4 Active Assessment History of DVT (deep vein thrombosis) V12.51 Active Problem History of pulmonary embolus (PE) V12.55 Active Assessment Anticoagulated V58.61 Active Problem Snoring 786.09 Active Problem Venous insufficiency 459.81 Active Problem Left hip pain 719.45 Active Problem Anticoagulated V58.61 Active Problem Need for prophylactic vaccination and inoculation, Influenza V04.81 Inactive Problem Rosacea 695.3 Inactive Problem Bxbcxngyxg-yiwesvs-racrlpqiz, combined [DTP] [DtaP] V06.1 Inactive Problem Counseling NOS V65.40 Inactive Problem Venous embolism and thrombosis of other specified veins 453.8 Active Problem Chest pain, unspecified 786.50 Inactive Problem Impacted cerumen 380.4 Inactive Problem Other and unspecified hyperlipidemia 272.4 Active Medications Medication Code System Code Instructions Start Date End Date Status Dosage Multi-Vitamin [facility] [address]-21 Oral 1 qd without vitamin k Coumadin [facility] [address]-74 3 MG Oral 1 (one) daily as directed Sep 28, 2013 not defined Lortab [facility] [address]-11 5-325 MG Orally three times a day Oct 13, 2014 1 tablet as needed Voltaren [facility] [address]-48 1 % Transdermal four times daily Jun 01, 2014 as directed Metronidazole [facility] 92400567168 0.75 APPLY EXTERNALLY DAILY NEEDED Metrogel [facility] [address]-65 0.75 % External 1 daily January 05, 2009 apply daily as directed Aleve [facility] [address]-67 220 MG Orally not defined Clobetasol Propionate [facility] [address]-21 0.05 % Externally Twice a day Jun 01, 2014 1 application to affected area Warfarin Sodium [facility] 78338576310 5 TAKE ONE TABLET BY MOUTH 5 TIMES A WEEK ON SUN, MON, WED, FRI, SAT. ALONG WITH 3MG. Propranolol HCl [facility] [address]-81 10 Oral one tablet prn Apr 02, 2008 called [facility] at [place] [address] [place] Procedures Procedure Coding System Code Date Office Visit, Est Pt., Level 3 CPT-4 06626 March 08, 2015 Vital Signs Date/Time: March 08, 2015 Temperature 97.8 F Weight 242 lbs Height 73 in Respiratory Rate 16 /min Cardiac Monitoring Heart Rate 78 /min Blood Pressure Diastolic 60 mm Hg Blood Pressure Systolic 120 mm Hg BMI 31.92 Index Oximetry 94 % Results No Known Results Summary Purpose eClinicalWorks Submission
--- OUTSIDE RECORDS SUMMARY | 2019-03-17 19:04 | XMS REPORT ---
Author Author Tania Ma Organization eClinicalWorks Address Unknown Phone Unavailable Care Team Providers Care Beading Installer Name Role Phone Tania Ma CP Unavailable [...] DVT (deep vein thrombosis) V12.51 Active Problem Xxwtpwxfwm-ygbvjjz-frnuybtiy, combined [DTP] [DtaP] V06.1 Inactive Problem Rosacea 695.3 Inactive Problem Impacted cerumen 380.4 Inactive Problem Counseling NOS V65.40 Inactive Problem Other and unspecified hyperlipidemia 272.4 Active Problem Need for prophylactic vaccination and inoculation, Influenza V04.81 Inactive Problem Venous embolism and thrombosis of other specified veins 453.8 Active Medications Medication Code System Code Instructions Start Date End Date Status Dosage Lortab [facility][NOTE 3] [address]-83 5-325 MG Orally three times a day Oct 13, 2014 1 tablet as needed Results No Known Results Summary Purpose eClinicalWorks Submission
--- OUTSIDE RECORDS SUMMARY | 2019-03-17 19:05 | XMS REPORT ---
Author Tania Watts [facility] eClinicalWorks Address Unknown Phone Unavailable Care Team Providers Care Slat Pickler Name Role Phone Tania Ma CP Unavailable [...] V12.51 Active Assessment Anticoagulated V58.61 Active Problem Dedpqzvudj-tpooxhj-nqkhcytdl, combined [DTP] [DtaP] V06.1 Inactive Assessment Embolism and thrombosis of unspecified site 453.9 Active Problem Rosacea 695.3 Inactive Problem Impacted cerumen 380.4 Inactive Problem Counseling NOS V65.40 Inactive Problem Other and unspecified hyperlipidemia 272.4 Active Problem Need for prophylactic vaccination and inoculation, Influenza V04.81 Inactive Problem Venous embolism and thrombosis of other specified veins 453.8 Active Medications Medication Code System Code Instructions Start Date End Date Status Dosage Metrogel [facility] [address]-51 0.75 % External 1 daily January 05, 2009 apply daily as directed Coumadin [facility] [address]-35 3 MG Oral 1 (one) daily as directed Sep 28, 2013 not defined Cyclobenzaprine HCl [facility] [address]-81 10 MG Orally Three times a day Sep 30, 2014 November 26, 2014 1 tablet Clobetasol Propionate [facility] [address]-25 0.05 % Externally Twice a day Jun 01, 2014 1 application to affected area Propranolol HCl [facility] [address]-55 10 Oral one tablet prn Apr 02, 2008 [facility] Multi-Vitamin [facility] [address]-61 Oral 1 qd without vitamin k Warfarin Sodium [facility] 93687584344 5 TAKE ONE TABLET BY MOUTH 5 TIMES A WEEK ON SUN, MON, WED, FRI, SAT. ALONG WITH 3MG. Metronidazole [facility] 35330465168 0.75 APPLY EXTERNALLY DAILY NEEDED Voltaren [facility] [address]-46 1 % Transdermal four times daily Jun 01, 2014 as directed Alive Mens Energy [facility] 119[address]289 Oral not defined Lortab [facility] [address]-89 5-325 MG Orally three times a day Oct 13, 2014 1 tablet as needed Procedures Procedure Coding System Code Date Billed by outside source CPT-4 NOBLL Oct 13, 2014 Results No Known Results Summary Purpose eClinicalWorks Submission
--- OUTSIDE RECORDS SUMMARY | 2019-03-17 19:05 | XMS REPORT ---
Author Tania Watts [facility] eClinicalWorks Address Unknown Phone Unavailable Care Team Providers Care Leather Goods Ii Assembler Name Role Phone Tania Ma CP [...] 719.45 Active Problem Snoring 786.09 Active Assessment Flu vaccine need V04.81 Active Assessment Anticoagulated V58.61 Active Problem Counseling NOS V65.40 Inactive Problem Need for prophylactic vaccination and inoculation, Influenza V04.81 Inactive Assessment Venous embolism and thrombosis of deep vessels of proximal lower 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.41 Active Problem Rosacea 695.3 Inactive Problem Wbmhzjzqoq-hahabxg-knhffmott, combined [DTP] [DtaP] V06.1 Inactive Problem Impacted cerumen 380.4 Inactive Medications Medication Code System Code Instructions Start Date End Date Status Dosage Coumadin [facility] [address]-17 4 MG Orally Once a day Apr 04, 2015 1 tablet Clindamycin HCl [facility] [address]-10 300 MG Orally every 8 hrs Apr 04, 2015 1 capsule Clobetasol Propionate [facility] [address]-42 0.05 % Externally Twice a day Jun 01, 2014 1 application to affected area Voltaren [facility] [address]-43 1 % Transdermal four times daily Jun 01, 2014 as directed Aleve [facility] [address]-77 220 MG Orally not defined Propranolol HCl [facility] [address]-69 10 Oral one tablet prn Apr 02, 2008 [facility] [place] [address] [facility] [address]-14 0.75 % External 1 daily January 05, 2009 apply daily as directed Metronidazole [facility] 36228866936 0.75 APPLY EXTERNALLY DAILY NEEDED Coumadin [facility] [address]-30 3 MG Oral 1 (one) daily as directed Sep 28, 2013 not defined Warfarin Sodium [facility] [address]-03 6 MG Orally Once a day TAKE ONE TABLET BY MOUTH 5 TIMES A WEEK ON SUN, MON, WED, FRI, SAT. ALONG WITH 3MG. Lortab [facility] [address]-78 5-325 MG Orally three times a day Oct 13, 2014 1 tablet as needed Multi-Vitamin [facility] [address]-75 Oral 1 qd without vitamin k Procedures Procedure Coding System Code Date ADMN FLU VAC NO FEE SCHED SAME DAY CPT-4 G0008 Jun 01, 2015 IIV4 FLU VACC NO PRESERV ID CPT-4 16311 Jun 01, 2015 Results No Known Results Immunizations Vaccine Administration Date Influenza Split 3 yrs > (QUAD) Jun 01, 2015 Summary Purpose eClinicalWorks Submission
--- OUTSIDE RECORDS SUMMARY | 2019-03-17 19:05 | XMS REPORT ---
Author Tania Watts [facility] eClinicalWorks Address Unknown Phone Unavailable Care Team Providers Care Data Analyst Report Writer Name Role Phone Tania Ma CP Unavailable Allergies, Adverse Reactions, Alerts Substance Reaction Event Type N.K.D.A. Info Not Available Non Drug Allergy Problems Problem Type Condition Code Onset Dates Condition Status Problem Chest [...] DVT (deep vein thrombosis) V12.51 Active Assessment DJD (degenerative joint disease) 715.90 Active Problem Firuenozcn-uqesoxm-xtyaldiim, combined [DTP] [DtaP] V06.1 Inactive Assessment Preoperative examination, unspecified V72.84 Active Assessment Anticoagulated V58.61 Active Problem Rosacea 695.3 Inactive Problem Impacted cerumen 380.4 Inactive Problem Counseling NOS V65.40 Inactive Problem Other and unspecified hyperlipidemia 272.4 Active Problem Need for prophylactic vaccination and inoculation, Influenza V04.81 Inactive Problem Venous embolism and thrombosis of other specified veins 453.8 Active Medications Medication Code System Code Instructions Start Date End Date Status Dosage Propranolol HCl [facility] [address]-29 10 Oral one tablet prn Apr 02, 2008 [facility] [place] [address] Hoffmann [facility] [address]-54 0.75 % External 1 daily January 05, 2009 apply daily as directed Metronidazole [facility] 11452703507 0.75 APPLY EXTERNALLY DAILY NEEDED Clobetasol Propionate [facility] [address]-53 0.05 % Externally Twice a day Jun 01, 2014 1 application to affected area Multi-Vitamin [facility] [address]-10 Oral 1 qd without vitamin k Coumadin [facility] [address]-87 3 MG Oral 1 (one) daily as directed Sep 28, 2013 not defined Lortab [facility] [address]-02 5-325 MG Orally three times a day Oct 13, 2014 1 tablet as needed Warfarin Sodium [facility] 62687314299 5 TAKE ONE TABLET BY MOUTH 5 TIMES A WEEK ON SUN, MON, WED, SAT, SAT. ALONG WITH 3MG. Voltaren [facility] [address]-38 1 % Transdermal four times daily Jun 01, 2014 as directed [employer] [facility] [address] Oral not defined Procedures Procedure Coding System Code Date CHEST X-RAY CPT-4 35260 December 06, 2014 Office Visit, Est Pt., Level 3 CPT-4 96803 December 06, 2014 -ELECTROCARDIOGRAM, COMPLETE CPT-4 03435 December 06, 2014 Vital Signs Date/Time: December 06, 2014 Blood Pressure Systolic 132 mm Hg Weight 245 lb 8 oz lbs Height 73 in Oximetry 95 % Respiratory Rate 16 /min Cardiac Monitoring Heart Rate 76 /min Blood Pressure Diastolic 90 mm Hg BMI 32.39 Index Results No Known Results Summary Purpose eClinicalWorks Submission
--- OUTSIDE RECORDS SUMMARY | 2019-03-17 19:05 | XMS REPORT ---
Author Tania Watts [facility] eClinicalWorks Address Unknown Phone Unavailable Care Team Providers Care Self Contained Behavior Unit Teacher Name Role Phone Tania Ma CP Unavailable Allergies No Known Allergies Problems Problem Type Condition Code Onset Dates Condition Status Problem Venous insufficiency 459.81 Active Problem Left hip pain 719.45 Active Problem Snoring 786.09 Active Problem Acute venous embolism and thrombosis of superficial veins of upper extremity I82.619 Active Assessment Personal history of other venous thrombosis and embolism Z86.718 Active Problem Anticoagulated Z79.01 Active Problem Acute thromboembolism of deep veins of proximal leg I82.4Y9 Active Problem Obesity 278.00 Active Problem DJD (degenerative joint disease) 715.90 Active Problem Personal history of other venous thrombosis and embolism Z86.718 Active Problem History of pulmonary embolus (PE) V12.55 Active Problem Counseling NOS V65.40 Inactive Problem Need for prophylactic vaccination and inoculation, Influenza V04.81 Inactive Assessment [facility] (current) use of anticoagulants Z79.01 Active Problem Qnfpmvyjhj-pdiindy-xpkoijutt, combined [DTP] [DtaP] V06.1 Inactive Problem Other and unspecified hyperlipidemia 272.4 Active Problem Chest pain, unspecified 786.50 Inactive Problem Rosacea 695.3 Inactive Problem Problems related to high-risk sexual behavior V69.2 Active Problem Impacted cerumen 380.4 Inactive Problem Personal history of venous thrombosis and embolism V12.51 Inactive Medications Medication Code System Code Instructions Start Date End Date Status Dosage Metrogel [facility] [address]-98 0.75 % External 1 daily January 05, 2009 apply daily as directed Multi-Vitamin [facility] [address]-57 Oral 1 qd without vitamin k Warfarin Sodium [facility] [address]-15 6 MG Orally Once a day TAKE ONE TABLET BY MOUTH 5 TIMES A WEEK ON SUN, MON, WED, FRI, SAT. ALONG WITH 3MG. Voltaren [facility] [address]-11 1 % Transdermal four times daily Jun 01, 2014 as directed Coumadin [facility] [address]-82 4 MG Orally Once a day Apr 04, 2015 1 tablet Propranolol HCl [facility] [address]-61 10 Oral one tablet prn Apr 02, 2008 [facility] [place] [address] Coumadin [facility] [address]-19 3 MG Oral 1 (one) daily as directed Sep 28, 2013 not defined Aleve [facility] [address]-68 220 MG Orally not defined Lortab [facility] [address]-43 5-325 MG Orally three times a day Oct 13, 2014 1 tablet as needed Clobetasol Propionate [facility] [address]-10 0.05 % Externally Twice a day Jun 01, 2014 1 application to affected area Clindamycin HCl [facility] [address]-03 300 MG Orally every 8 hrs Apr 04, 2015 1 capsule Metronidazole [facility] 77728854458 0.75 APPLY EXTERNALLY DAILY NEEDED Procedures Procedure Coding System Code Date Billed by outside source CPT-4 NOBLL Aug 03, 2015 Results No Known Results Summary Purpose eClinicalWorks Submission
--- OUTSIDE RECORDS SUMMARY | 2019-03-17 19:05 | XMS REPORT ---
Author Tania Watts [facility] eClinicalWorks Address Unknown Phone Unavailable Care Team Providers Care Print Graphic Designer Name Role Phone Tania Ma CP Unavailable [...] Unspecified venous (peripheral) insufficiency 459.81 Active Problem Golietzqcp-qjetuwm-smvttahew, combined [DTP] [DtaP] V06.1 Inactive Problem Counseling NOS V65.40 Inactive Assessment Encounter for long-term (current) use of anticoagulants V58.61 Active Problem Need for prophylactic vaccination and inoculation, Influenza V04.81 Inactive Assessment Venous embolism and thrombosis of other specified veins 453.8 Active Problem Rosacea 695.3 Inactive Medications Medication Code System Code Instructions Start Date End Date Status Dosage Multi-Vitamin [facility] [address]-43 Oral 1 qd without vitamin k Alive Mens Energy [facility] [address] Oral not defined Voltaren [facility] [address]-82 1 % Transdermal four times daily Jun 01, 2014 as directed Metronidazole [facility] 13973788678 0.75 APPLY EXTERNALLY DAILY NEEDED Coumadin [facility] [address]-65 3 MG Oral 1 (one) daily as directed Sep 28, 2013 not defined Metrogel [facility] [address]-14 0.75 % External 1 daily January 05, 2009 apply daily as directed Propranolol HCl [facility] [address]-42 10 Oral one tablet prn Apr 02, 2008 [facility] at [place] [address] Clobetasol Propionate [facility] [address]-52 0.05 % Externally Twice a day Jun 01, 2014 1 application to affected area Warfarin Sodium [facility] [address]-03 5 MG Oral smwfsat with a 3mg Sep 21, 2013 total of 8 mg Procedures Procedure Coding System Code Date Billed by outside source CPT-4 NOBLL Jul 05, 2014 Results No Known Results Summary Purpose eClinicalWorks Submission
--- OUTSIDE RECORDS SUMMARY | 2019-03-17 19:05 | XMS REPORT ---
Author Tania Watts [facility] eClinicalWorks Address Unknown Phone Unavailable Care Team Providers Care Section Plotter Operator Name Role Phone Tania Ma CP Unavailable Allergies, Adverse Reactions, Alerts Substance Reaction Event Type N.K.D.A. Info Not Available Non Drug Allergy Problems Problem Type Condition Code Onset Dates Condition Status Problem Personal history of venous thrombosis and embolism V12.51 Inactive Problem Venous insufficiency 459.81 Active Problem Osteoarthrosis M19.90 Active Problem History of pulmonary embolus (PE) Z86.711 Active Assessment Anticoagulated Z79.01 Active Problem Anticoagulated Z79.01 Active Assessment Acute venous embolism and thrombosis of superficial veins of upper extremity I82.619 Active Assessment Achilles tendinitis, right leg M76.61 Active Problem Achilles tendinitis, right leg M76.61 Active Problem Left hip pain 719.45 Active Problem Snoring 786.09 Active Problem Personal history of other venous thrombosis and embolism Z86.718 Active Problem Obesity 278.00 Active Problem Czcebdwlcp-wxcvybo-iufyuakdp, combined [DTP] [DtaP] V06.1 Inactive Problem Counseling NOS V65.40 Inactive Assessment Personal history of other venous thrombosis and embolism Z86.718 Active Assessment Osteoarthrosis M19.90 Active Problem Impacted cerumen 380.4 Inactive Problem Other and unspecified hyperlipidemia 272.4 Active Problem Need for prophylactic vaccination and inoculation, Influenza V04.81 Inactive Problem Chest pain, unspecified 786.50 Inactive Assessment History of pulmonary embolus (PE) Z86.711 Active Problem Rosacea 695.3 Inactive Problem Problems related to high-risk sexual behavior V69.2 Active Medications Medication Code System Code Instructions Start Date End Date Status Dosage Propranolol HCl [facility] [address]-67 10 Oral one tablet prn Apr 02, 2008 [facility] [place] [address]ie Verdin Warfarin Sodium [facility] [address]-54 7 mg Orally Once a day on TTSS TAKE ONE TABLET BY MOUTH 5 TIMES A WEEK ON SUN, MON, WED, FRI, SAT. ALONG WITH 3MG. Warfarin Sodium [facility] [address]-26 5 MG Orally Once a day MWF 1 tablet Clobetasol Propionate [facility] [address]-33 0.05 % Externally Twice a day Jun 01, 2014 1 application to affected area Voltwenn [facility] [address]-06 1 % Transdermal four times daily Jun 01, 2014 as directed Aleve [facility] [address]-58 220 MG Orally not defined Promethazine-Codeine [facility] [address]-88 6.25-10 MG/5ML Orally every 6 hrs Aug 24, 2015 5 ml as needed Lortab [facility] [address]-42 5-325 MG Orally three times a day Oct 13, 2014 1 tablet as needed Metrogel [facility] [address]-89 0.75 % External 1 daily January 05, 2009 apply daily as directed Procedures Procedure Coding System Code Date Office Visit, Est Pt., Level 3 CPT-4 35323 Oct 03, 2015 Billed by outside source CPT-4 NOBLL Oct 03, 2015 Vital Signs Date/Time: Oct 03, 2015 Temperature 98.3 F Weight 245.8 lbs Height 73 in Respiratory Rate 18 /min Cardiac Monitoring Heart Rate 73 /min Blood Pressure Diastolic 80 mm Hg Blood Pressure Systolic 130 mm Hg BMI 32.43 Index Oximetry 97 % Results Name Result Date Reference Range Unit Abnormality Flag Prothrombin Time (PT, INR) 88850 ----INR 1.2 [id number] 0.8-1.2 ----Prothrombin Time 14.0 [id number] 9.1-12.0 sec H Summary Purpose eClinicalWorks Submission
--- OUTSIDE RECORDS SUMMARY | 2019-03-17 19:05 | XMS REPORT ---
Author Tania Watts [facility] eClinicalWorks Address Unknown Phone Unavailable Care Team Providers Care Community Education Coordinator Name Role Phone Tania Ma CP Unavailable Allergies No Known Allergies Problems Problem Type Condition Code Onset Dates Condition Status Problem Venous insufficiency 459.81 Active Problem Left hip pain 719.45 Active Problem Snoring 786.09 Active Problem Acute venous embolism and thrombosis of superficial veins of upper extremity I82.619 Active Assessment Anticoagulated Z79.01 Active Problem Anticoagulated Z79.01 Active Problem Acute thromboembolism of deep veins of proximal leg I82.4Y9 Active Problem Obesity 278.00 Active Problem DJD (degenerative joint disease) 715.90 Active Problem Personal history of other venous thrombosis and embolism Z86.718 Active Problem History of pulmonary embolus (PE) V12.55 Active Problem Counseling NOS V65.40 Inactive Problem Need for prophylactic vaccination and inoculation, Influenza V04.81 Inactive Assessment Personal history of other venous thrombosis and embolism Z86.718 Active Problem Lqjswedvaq-liobucz-kiulupkcz, combined [DTP] [DtaP] V06.1 Inactive Problem Other and unspecified hyperlipidemia 272.4 Active Problem Chest pain, unspecified 786.50 Inactive Problem Rosacea 695.3 Inactive Problem Problems related to high-risk sexual behavior V69.2 Active Problem Impacted cerumen 380.4 Inactive Problem Personal history of venous thrombosis and embolism V12.51 Inactive Medications Medication Code System Code Instructions Start Date End Date Status Dosage Clobetasol Propionate [facility] [address]-14 0.05 % Externally Twice a day Jun 01, 2014 1 application to affected area Metronidazole [facility] 33946955438 0.75 APPLY EXTERNALLY DAILY NEEDED Coumadin [facility] [address]-38 4 MG Orally Once a day Apr 04, 2015 1 tablet Aleve [facility] [address]-37 220 MG Orally not defined Propranolol HCl [facility] [address]-49 10 Oral one tablet prn Apr 02, 2008 [facility] Coumadin [facility] [address]-43 3 MG Oral 1 (one) daily as directed Sep 28, 2013 not defined Multi-Vitamin [facility] [address]-28 Oral 1 qd without vitamin k Lortab [facility] [address]-95 5-325 MG Orally three times a day Oct 13, 2014 1 tablet as needed Clindamycin HCl [facility] [address]-34 300 MG Orally every 8 hrs Apr 04, 2015 1 capsule Warfarin Sodium [facility] [address]-64 6 MG Orally Once a day TAKE ONE TABLET BY MOUTH 5 TIMES A WEEK ON SUN, MON, WED, SAT, SAT. ALONG WITH 3MG. Metrogel [facility] [address]-63 0.75 % External 1 daily January 05, 2009 apply daily as directed Voltaren [facility] [address]-16 1 % Transdermal four times daily Jun 01, 2014 as directed Procedures Procedure Coding System Code Date Billed by outside source CPT-4 NOBLL Jun 24, 2015 Results No Known Results Summary Purpose eClinicalWorks Submission
--- OUTSIDE RECORDS SUMMARY | 2019-03-17 19:05 | XMS REPORT ---
Author Tania Watts [facility] eClinicalWorks Address Unknown Phone Unavailable Care Team Providers Care Supervisor Stave Cutting Name Role Phone Tania Ma CP Unavailable Allergies No Known Allergies Problems Problem Type Condition ICD-9 Code Onset Dates Condition Status Problem Personal history of venous thrombosis and embolism V12.51 Inactive Problem History of DVT (deep vein thrombosis) V12.51 Active Problem Venous embolism and thrombosis of deep vessels of proximal lower 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.41 Active Problem Obesity 278.00 Active Assessment Encounter for long-term (current) use of anticoagulants V58.61 Active Problem DJD (degenerative joint disease) 715.90 Active Assessment Venous embolism and thrombosis of other specified veins 453.8 Active Problem History of pulmonary embolus (PE) V12.55 Active Problem Snoring 786.09 Active Problem Venous insufficiency 459.81 Active Problem Left hip pain 719.45 Active Problem Anticoagulated V58.61 Active Problem Need for prophylactic vaccination and inoculation, Influenza V04.81 Inactive Problem Rosacea 695.3 Inactive Problem Otfllhefwn-aafatgl-womtwjoxw, combined [DTP] [DtaP] V06.1 Inactive Problem Counseling [...] Start Date End Date Status Dosage Coumadin [facility] [address]-10 3 MG Oral 1 (one) daily as directed Sep 28, 2013 not defined Multi-Vitamin [facility] [address]-25 Oral 1 qd without vitamin k Clobetasol Propionate [facility] [address]-76 0.05 % Externally Twice a day Jun 01, 2014 1 application to affected area Metronidazole [facility] 47147022235 0.75 APPLY EXTERNALLY DAILY NEEDED Propranolol HCl [facility] [address]-60 10 Oral one tablet prn Apr 02, 2008 [facility] at [place] [address] [facility] [address]-68 0.75 % External 1 daily January 05, 2009 apply daily as directed Voltaren [facility] [address]-21 1 % Transdermal four times daily Jun 01, 2014 as directed Warfarin Sodium [facility] 02022062123 5 TAKE ONE TABLET BY MOUTH 5 TIMES A WEEK ON SUN, MON, WED, FRI, SAT. ALONG WITH 3MG. Lortab [facility] [address]-76 5-325 MG Orally three times a day Oct 13, 2014 1 tablet as needed Alive Mens Energy [facility] [address] Oral not defined Procedures Procedure Coding System Code Date Billed by outside source CPT-4 NOBLL February 14, 2015 Results No Known Results Summary Purpose eClinicalWorks Submission
--- OUTSIDE RECORDS SUMMARY | 2019-03-17 19:06 | XMS REPORT ---
Author Author CHARLENE GARCIA [facility] Address [address] [place] [address] Care Team Providers Care Hris Coordinator Name Role Phone CHARLENE GARCIA Unavailable PROBLEMS Type Condition ICD9-CM Code NWO31-MN Code Onset Dates Condition Status SNOMED Code Problem Urinary hesitancy R39.11 Active 2282862 Problem Atelectasis J98.11 Active 56625181 Problem Pure hypercholesterolemia E78.00 Active 068151536 Problem History of DVT (deep vein thrombosis) Z86.718 Active 388667241 Problem DVT (deep venous thrombosis) I82.409 Active 841059706 Problem Bronchitis J40 Active 85269979 ALLERGIES No Information ENCOUNTERS Encounter Location Date Diagnosis [place] [address] [address] 27 Jul, 2018 History of DVT (deep vein thrombosis) Z86.718 [place] [address] [address] 27 Jul, 2018 History of DVT (deep vein thrombosis) Z86.718 [place] [address] [address] 20 Jul, 2018 DVT (deep venous thrombosis) I82.409 [place] [address] [address] 15 Jul, 2018 DVT (deep venous thrombosis) I82.409 [place] [address] [address] 13 Jul, 2018 Urinary hesitancy R39.11 and History of DVT (deep vein thrombosis) Z86.718 [place] [address] [address] 13 Jul, 2018 DVT (deep venous thrombosis) I82.409 [place] [address] [place] [address] 09 Jul, 2018 DVT (deep venous thrombosis) I82.409 ; Closed fracture of one rib of right side with routine healing, subsequent encounter S22.31XD ; Atelectasis J98.11 and penitentiary (current) use of anticoagulants Z79.01 [place] [address] [place] [id number] [place] [address] 05 Jul, 2018 Pneumonia of right lower lobe due to infectious organism J18.1 and DVT (deep venous thrombosis) I82.409 [place] [address] [place] [id number] [place] [address] 02 Jul, 2018 Injury of chest wall, initial encounter S29.9XXA [place] [address] [place] [id number] [place] [address] Jun, Injury of chest wall, initial encounter S29.9XXA ; History of DVT (deep vein thrombosis) Z86.718 and Concussion without loss of consciousness, initial encounter S06.0X0A [place] [address] [place] [id number] [place] [address] May, DVT (deep venous thrombosis) I82.409 [place] [address] [place] [id number] [place] [address] Apr, DVT (deep venous thrombosis) I82.409 [place] [address] [place] [id number] [place] [address] Apr, Personal history of other venous thrombosis and embolism Z86.718 [place] [address] [place] [id number] [place] [address] Jan, History of DVT (deep vein thrombosis) Z86.718 [place] [address] [place] [id number] [place] [address] December, Medicare annual wellness visit, initial Z00.00 ; Pure hypercholesterolemia E78.00 ; History of DVT (deep vein thrombosis) Z86.718 and Encounter for immunization Z23 [facility] [address] [place] [id number] [place] [address] December, History of DVT (deep vein thrombosis) Z86.718 [facility] [address] [place] [id number] [place] [address] Oct, History of DVT (deep vein thrombosis) Z86.718 [place] [address] [address] Oct, History of DVT (deep vein thrombosis) Z86.718 [place] [address] [place] [id number] [place] [address] Sep, [place] [address] [place] [id number] [place] [address] Sep, Pure hypercholesterolemia E78.00 and History of DVT (deep vein thrombosis) Z86.718 [place] [address] [place] [id number] [place] [address] Sep, Pure hypercholesterolemia E78.00 [place] [address] [place] [id number] [place] [address] Aug, History of DVT (deep vein thrombosis) Z86.718 [place] [address] [place] [id number] [place] [address] Aug, Encounter for immunization Z23 [place] [address] [address] Jul, History of DVT (deep vein thrombosis) Z86.718 [place] [address] [place] [id number] [place] [address] Jun, History of DVT (deep vein thrombosis) Z86.718 and Bronchitis J40 [place] [address] [place] [id number] [place] [address] Jun, Personal history of other venous thrombosis and embolism Z86.718 and History of DVT (deep vein thrombosis) Z86.718 [place] [address] [place] [id number] [place] [address] Apr, Personal history of other venous thrombosis and embolism Z86.718 and History of DVT (deep vein thrombosis) Z86.718 [place] [address] [place] [id number] [place] [address] Mar, History of DVT (deep vein thrombosis) Z86.718 [place] [address] [address] Mar, Personal history of other venous thrombosis and embolism Z86.718 [place] [address] [address] Jan, History of DVT (deep vein thrombosis) Z86.718 [place] [address] [place] [id number] [place] [address] Jan, Acute nasopharyngitis J00 [place] [address] [address] Jan, History of DVT (deep vein thrombosis) Z86.718 and Bronchitis J40 [place] [address] [address] Jan, [place] [address] [place] [id number] [place] [address] Jan, History of DVT (deep vein thrombosis) Z86.718 [place] [address] [place] [id number] [place] [address] Jan, Personal history of other venous thrombosis and embolism Z86.718 and History of DVT (deep vein thrombosis) Z86.718 [place] [address] [address] Jan, Personal history of other venous thrombosis and embolism Z86.718 and History of DVT (deep vein thrombosis) Z86.718 [place] [address] [place] [id number] [place] [address] Jan, History of DVT (deep vein thrombosis) Z86.718 [place] [address] [place] [id number] [place] [address] December, History of DVT (deep vein thrombosis) Z86.718 [place] [address] [address] December, History of DVT (deep vein thrombosis) Z86.718 [place] [address] [address] Dec, History of DVT (deep vein thrombosis) Z86.718 [place] [address] [address] Oct, History of DVT (deep vein thrombosis) Z86.718 [place] [address] [address] Oct, History of DVT (deep vein thrombosis) Z86.718 ; Mixed hyperlipidemia E78.2 ; Impacted cerumen of right ear H61.21 ; Encounter for immunization Z23 and Hyperlipidemia E78.5 [place] [address] [address] Sep, History of DVT (deep vein thrombosis) Z86.718 ; Mixed hyperlipidemia E78.2 ; Impacted cerumen of right ear H61.21 ; Encounter for immunization Z23 and Hyperlipidemia E78.5 [place] [address] [address] Aug, History of DVT (deep vein thrombosis) Z86.718 and Acute nasopharyngitis J00 [place] [address] [address] Aug, Bronchitis J40 and History of DVT (deep vein thrombosis) Z86.718 [place] [address] [address] Aug, History of DVT (deep vein thrombosis) Z86.718 and Pure hypercholesterolemia E78.00 [facility] [address] [place] [address] Aug, Mixed hyperlipidemia E78.2 and History of DVT (deep vein thrombosis) Z86.718 [facility] [address] [place] [id number] [place] [address] Aug, Mixed hyperlipidemia E78.2 [facility] [address] [address] Jul, Encounter for immunization Z23 [facility] [address] [place] [id number] [place] [address] Jul, History of DVT (deep vein thrombosis) Z86.718 [place] [address] [place] [id number] [place] [address] Jul, History of DVT (deep vein thrombosis) Z86.718 and Encounter for immunization Z23 [place] [address] [place] [id number] [place] [address] May, [facility] [address] [place] [id number] [place] [address] May, History of DVT (deep vein thrombosis) Z86.718 [facility] [address] [place] [id number] [place] [address] Apr, History of DVT (deep vein thrombosis) Z86.718 [facility] [address] [place] [id number] [place] [address] Mar, History of DVT (deep vein thrombosis) Z86.718 [facility] [address] [place] [address] Jan, History of DVT (deep vein thrombosis) Z86.718 [facility] [address] [place] [id number] [place] [address] December, [facility] [address] [place] [id number] [place] [address] December, History of DVT (deep vein thrombosis) Z86.718 and Hyperlipidemia E78.5 [place] [address] [place] [id number] [place] [address] Dec, History of DVT (deep vein thrombosis) Z86.718 ; Impacted cerumen of right ear H61.21 and Hyperlipidemia E78.5 [place] [address] [address] Dec, DVT (deep venous thrombosis) I82.409 [place] [address] [address] Dec, DVT (deep venous thrombosis) I82.409 [place] [address] [address] Oct, DVT (deep venous thrombosis) I82.409 [place] [address] [address] Oct, DVT (deep venous thrombosis) I82.409 [place] [address] [place] [id number] [place] [address] Oct, [place] [address] [place] [id number] [place] [address] Oct, History of DVT (deep vein thrombosis) Z86.718 [place] [address] [place] [id number] [place] [address] Oct, DVT (deep venous thrombosis) I82.409 [place] [address] [place] [id number] [place] [address] Oct, History of DVT (deep vein thrombosis) Z86.718 [place] [address] [place] [id number] [place] [address] Oct, History of DVT (deep vein thrombosis) Z86.718 IMMUNIZATIONS No Known Immunizations SOCIAL HISTORY Never Assessed REASON FOR VISIT INR PLAN OF CARE VITAL SIGNS MEDICATIONS Unknown Medications RESULTS No Results PROCEDURES No Known procedures INSTRUCTIONS MEDICATIONS ADMINISTERED No Known Medications MEDICAL (GENERAL) HISTORY Type Description Date Medical History DVT-1999 Surgical History bilateral cataract surgery Surgical History detached retina surgeries x 2 Left eye Surgical History reattach the lens in right eye x 2 Surgical History tonsiillectomy Surgical History hip replacement-left hip 12/2014 Hospitalization History surgeries Hospitalization History DVT for 17 days
--- OUTSIDE RECORDS SUMMARY | 2019-03-17 19:06 | XMS REPORT ---
Author Author CHARLENE GARCIA [facility] Address [address] [place] [address] Care Team Providers Care Cryogenic Transport Driver Name Role Phone CHARLENE GARCIA Unavailable PROBLEMS Type Condition ICD9-CM Code SLO75-FZ Code Onset Dates Condition Status SNOMED Code Problem Urinary hesitancy R39.11 Active 8299429 Problem Atelectasis J98.11 Active 60176732 Problem Pure hypercholesterolemia E78.00 Active 431550918 Problem History of DVT (deep vein thrombosis) Z86.718 Active 435176877 Problem DVT (deep venous thrombosis) I82.409 Active 617292436 Problem Bronchitis J40 Active 91959637 ALLERGIES No Information ENCOUNTERS Encounter Location Date Diagnosis [place] [address] [address] 27 Jul, 2018 History of DVT (deep vein thrombosis) Z86.718 [place] [address] [address] 27 Jul, 2018 History of DVT (deep vein thrombosis) Z86.718 [place] [address] [address] 20 Jul, 2018 DVT (deep venous thrombosis) I82.409 [place] [address] [address] 15 Jul, 2018 DVT (deep venous thrombosis) I82.409 [place] [address] [address] 13 Jul, 2018 Urinary hesitancy R39.11 and History of DVT (deep vein thrombosis) Z86.718 [place] [address] [address] 13 Jul, 2018 DVT (deep venous thrombosis) I82.409 [place] [address] [place] [address] 09 Jul, 2018 DVT (deep venous thrombosis) I82.409 ; Closed fracture of one rib of right side with routine healing, subsequent encounter S22.31XD ; Atelectasis J98.11 and intermediate (current) use of anticoagulants Z79.01 [place] [address] [place] [id number] [place] [address] 05 Jul, 2018 Pneumonia of right lower lobe due to infectious organism J18.1 and DVT (deep venous thrombosis) I82.409 [place] [address] [place] [id number] [place] [address] 02 Jul, 2018 Injury of chest wall, initial encounter S29.9XXA [place] [address] [place] [id number] [place] [address] Jun, Injury of chest wall, initial encounter S29.9XXA ; History of DVT (deep vein thrombosis) Z86.718 and Concussion without loss of consciousness, initial encounter S06.0X0A [place] [address] [place] [id number] [place] [address] May, DVT (deep venous thrombosis) I82.409 [place] [address] [place] [id number] [place] [address] Apr, DVT (deep venous thrombosis) I82.409 [place] [address] [place] [id number] [place] [address] Apr, Personal history of other venous thrombosis and embolism Z86.718 [place] [address] [place] [id number] [place] [address] Jan, History of DVT (deep vein thrombosis) Z86.718 [place] [address] [place] [id number] [place] [address] December, Medicare annual wellness visit, initial Z00.00 ; Pure hypercholesterolemia E78.00 ; History of DVT (deep vein thrombosis) Z86.718 and Encounter for immunization Z23 [facility] [place] [address] [place] [id number] [place] [address] December, History of DVT (deep vein thrombosis) Z86.718 [facility] [place] [address] [place] [id number] [place] [address] Oct, History of DVT (deep vein thrombosis) Z86.718 [place] [address] [address] Oct, History of DVT (deep vein thrombosis) Z86.718 [place] [address] [place] [id number] [place] [address] Sep, [place] [address] [place] [id number] [place] [address] Sep, Pure hypercholesterolemia E78.00 and History of DVT (deep vein thrombosis) Z86.718 [place] [address] [place] [id number] [place] [address] Sep, Pure hypercholesterolemia E78.00 [place] [address] [place] [id number] [place] [address] Aug, History of DVT (deep vein thrombosis) Z86.718 [place] [address] [place] [id number] [place] [address] Aug, Encounter for immunization Z23 [place] [address] [address] Jul, History of DVT (deep vein thrombosis) Z86.718 [place] [address] [place] [id number] [place] [address] Jun, History of DVT (deep vein thrombosis) Z86.718 and Bronchitis J40 [place] [address] [place] [id number] [place] [address] Jun, Personal history of other venous thrombosis and embolism Z86.718 and History of DVT (deep vein thrombosis) Z86.718 [place] [address] [place] [id number] [place] [address] Apr, Personal history of other venous thrombosis and embolism Z86.718 and History of DVT (deep vein thrombosis) Z86.718 [place] [address] [place] [id number] [place] [address] Mar, History of DVT (deep vein thrombosis) Z86.718 [place] [address] [address] Mar, Personal history of other venous thrombosis and embolism Z86.718 [place] [address] [address] Jan, History of DVT (deep vein thrombosis) Z86.718 [place] [address] [place] [id number] [place] [address] Jan, Acute nasopharyngitis J00 [place] [address] [address] Jan, History of DVT (deep vein thrombosis) Z86.718 and Bronchitis J40 [place] [address] [address] Jan, [place] [address] [place] [id number] [place] [address] Jan, History of DVT (deep vein thrombosis) Z86.718 [place] [address] [place] [id number] [place] [address] Jan, Personal history of other venous thrombosis and embolism Z86.718 and History of DVT (deep vein thrombosis) Z86.718 [place] [address] [address] Jan, Personal history of other venous thrombosis and embolism Z86.718 and History of DVT (deep vein thrombosis) Z86.718 [place] [address] [place] [id number] [place] [address] Jan, History of DVT (deep vein thrombosis) Z86.718 [place] [address] [place] [id number] [place] [address] December, History of DVT (deep vein thrombosis) Z86.718 [place] [address] [address] December, History of DVT (deep vein thrombosis) Z86.718 [place] [address] [address] Dec, History of DVT (deep vein thrombosis) Z86.718 [place] [address] [address] Oct, History of DVT (deep vein thrombosis) Z86.718 [place] [address] [address] Oct, History of DVT (deep vein thrombosis) Z86.718 ; Mixed hyperlipidemia E78.2 ; Impacted cerumen of right ear H61.21 ; Encounter for immunization Z23 and Hyperlipidemia E78.5 [place] [address] [address] Sep, History of DVT (deep vein thrombosis) Z86.718 ; Mixed hyperlipidemia E78.2 ; Impacted cerumen of right ear H61.21 ; Encounter for immunization Z23 and Hyperlipidemia E78.5 [place] [address] [address] Aug, History of DVT (deep vein thrombosis) Z86.718 and Acute nasopharyngitis J00 [place] [address] [address] Aug, Bronchitis J40 and History of DVT (deep vein thrombosis) Z86.718 [place] [address] [address] Aug, History of DVT (deep vein thrombosis) Z86.718 and Pure hypercholesterolemia E78.00 [facility] [place] [address] [place] [address] Aug, Mixed hyperlipidemia E78.2 and History of DVT (deep vein thrombosis) Z86.718 [facility] [place] [address] [place] [id number] [place] [address] Aug, Mixed hyperlipidemia E78.2 [facility] [place] [address] [address] Jul, Encounter for immunization Z23 [facility] [place] [address] [place] [id number] [place] [address] Jul, History of DVT (deep vein thrombosis) Z86.718 [place] [address] [place] [id number] [place] [address] Jul, History of DVT (deep vein thrombosis) Z86.718 and Encounter for immunization Z23 [place] [address] [place] [id number] [place] [address] May, [facility] [place] [address] [place] [id number] [place] [address] May, History of DVT (deep vein thrombosis) Z86.718 [facility] [place] [address] [place] [id number] [place] [address] Apr, History of DVT (deep vein thrombosis) Z86.718 [facility] [place] [address] [place] [id number] [place] [address] Mar, History of DVT (deep vein thrombosis) Z86.718 [facility] [place] [address] [place] [address] Jan, History of DVT (deep vein thrombosis) Z86.718 [facility] [place] [address] [place] [id number] [place] [address] December, [facility] [place] [address] [place] [id number] [place] [address] December, History of DVT (deep vein thrombosis) Z86.718 and Hyperlipidemia E78.5 [place] [address] [place] [id number] [place] [address] Dec, History of DVT (deep vein thrombosis) Z86.718 ; Impacted cerumen of right ear H61.21 and Hyperlipidemia E78.5 [place] [address] [place] [id number] [place] [address] Dec, DVT (deep venous thrombosis) I82.409 [place] [address] [place] [id number] [place] [address] Dec, DVT (deep venous thrombosis) I82.409 [place] [address] [place] [id number] [place] [address] Oct, DVT (deep venous thrombosis) I82.409 [place] [address] [address] Oct, DVT (deep venous thrombosis) I82.409 [place] [address] [place] [id number] [place] [address] Oct, [place] [address] [place] [id number] [place] [address] Oct, History of DVT (deep vein thrombosis) Z86.718 [place] [address] [place] [id number] [place] [address] Oct, DVT (deep venous thrombosis) I82.409 [place] [address] [place] [id number] [place] [address] Oct, History of DVT (deep vein thrombosis) Z86.718 [place] [address] [place] [id number] [place] [address] Oct, History of DVT (deep vein thrombosis) Z86.718 IMMUNIZATIONS No Known Immunizations SOCIAL HISTORY Never Assessed REASON FOR VISIT lab results PLAN OF CARE Activity Details Follow Up prn Reason: VITAL SIGNS Height 73 in 2018-07-15 Temperature 97.3 degrees Fahrenheit 2018-07-15 Heart Rate 71 bpm 2018-07-15 Respiratory Rate 20 2018-07-15 MEDICATIONS Unknown Medications RESULTS No Results PROCEDURES Procedure Date Ordered Result Body Site [facility] VISIT ESTABLISHED PATIENT Jul 15, 2018 INSTRUCTIONS MEDICATIONS ADMINISTERED No Known Medications MEDICAL [...]
--- OUTSIDE RECORDS SUMMARY | 2019-03-17 19:06 | XMS REPORT ---
Author Author CHARLENE GARCIA Organization [facility] Address [address] [place] [address] Care Team Providers Care Corn Sheller Name Role Phone CHARLENE GARCIA Unavailable PROBLEMS Type Condition ICD9-CM Code GRJ63-XV Code Onset Dates Condition Status SNOMED Code Problem Urinary hesitancy R39.11 Active 9836526 Problem Atelectasis J98.11 Active 84690371 Problem Pure hypercholesterolemia E78.00 Active 159282453 Problem History of DVT (deep vein thrombosis) Z86.718 Active 386990029 Problem DVT (deep venous thrombosis) I82.409 Active 450785426 Problem Bronchitis J40 Active 60031465 ALLERGIES No Information ENCOUNTERS Encounter Location Date Diagnosis [place] [address] [address] 20 Jul, 2018 DVT (deep venous thrombosis) I82.409 [place] [address] [address] 15 Jul, 2018 DVT (deep venous thrombosis) I82.409 [place] [address] [address] 13 Jul, 2018 Urinary hesitancy R39.11 and History of DVT (deep vein thrombosis) Z86.718 [place] [address] [address] 13 Jul, 2018 DVT (deep venous thrombosis) I82.409 [place] [address] [address] 09 Jul, 2018 DVT (deep venous thrombosis) I82.409 ; Closed fracture of one rib of right side with routine healing, subsequent encounter S22.31XD ; Atelectasis J98.11 and nursing home (current) use of anticoagulants Z79.01 [place] [address] [place] [id number] [place] [address] Jul, Pneumonia of right lower lobe due to infectious organism J18.1 and DVT (deep venous thrombosis) I82.409 [place] [address] [place] [id number] [place] [address] Jul, Injury of chest wall, initial encounter S29.9XXA [place] [address] [address] Jun, Injury of chest wall, initial encounter S29.9XXA ; History of DVT (deep vein thrombosis) Z86.718 and Concussion without loss of consciousness, initial encounter S06.0X0A [place] [address] [place] [id number] [place] [address] May, DVT (deep venous thrombosis) I82.409 [place] [address] [address] Apr, DVT (deep venous thrombosis) I82.409 [place] [address] [place] [id number] [place] [address] Apr, Personal history of other venous thrombosis and embolism Z86.718 [place] [address] [place] [id number] [place] [address] Jan, History of DVT (deep vein thrombosis) Z86.718 [place] [address] [place] [id number] [place] [address] December, Medicare annual wellness visit, initial Z00.00 ; Pure hypercholesterolemia E78.00 ; History of DVT (deep vein thrombosis) Z86.718 and Encounter for immunization Z23 [place] [address] [address] December, History of DVT (deep vein thrombosis) Z86.718 [place] [address] [place] [id number] [place] [address] Oct, History of DVT (deep vein thrombosis) Z86.718 [place] [address] [place] [id number] [place] [address] Oct, History of DVT (deep vein thrombosis) Z86.718 [place] [address] [place] [id number] [place] [address] Sep, [place] [address] [address] Sep, Pure hypercholesterolemia E78.00 and History of DVT (deep vein thrombosis) Z86.718 [place] [address] [place] [id number] [place] [address] Sep, Pure hypercholesterolemia E78.00 [place] [address] [address] Aug, History of DVT (deep vein thrombosis) Z86.718 [place] [address] [address] Aug, Encounter for immunization Z23 [place] [address] [address] Jul, History of DVT (deep vein thrombosis) Z86.718 [place] [address] [place] [id number] [place] [address] Jun, History of DVT (deep vein thrombosis) Z86.718 and Bronchitis J40 [place] [address] [place] [id number] [place] [address] Jun, Personal history of other venous thrombosis and embolism Z86.718 and History of DVT (deep vein thrombosis) Z86.718 [place] [address] [address] Apr, Personal history of other venous thrombosis and embolism Z86.718 and History of DVT (deep vein thrombosis) Z86.718 [place] [address] [place] [id number] [place] [address] Mar, History of DVT (deep vein thrombosis) Z86.718 [place] [address] [address] Mar, Personal history of other venous thrombosis and embolism Z86.718 [place] [address] [place] [id number] [place] [address] Jan, History of DVT (deep vein thrombosis) Z86.718 [place] [address] [place] [id number] [place] [address] Jan, Acute nasopharyngitis J00 [place] [address] [place] [id number] [place] [address] Jan, History of DVT (deep vein thrombosis) Z86.718 and Bronchitis J40 [place] [address] [place] [id number] [place] [address] Jan, [place] [address] [place] [id number] [place] [address] Jan, History of DVT (deep vein thrombosis) Z86.718 [place] [address] [place] [address] Jan, Personal history of other venous thrombosis and embolism Z86.718 and History of DVT (deep vein thrombosis) Z86.718 [place] [address] [address] Jan, Personal history of other venous thrombosis and embolism Z86.718 and History of DVT (deep vein thrombosis) Z86.718 [place] [address] [place] [address] Jan, History of DVT (deep vein thrombosis) Z86.718 [place] [address] [place] [address] December, History of DVT (deep vein thrombosis) Z86.718 [place] [address] [place] [address] December, History of DVT (deep vein thrombosis) Z86.718 [place] [address] [address] Dec, History of DVT (deep vein thrombosis) Z86.718 [place] [address] [address] Oct, History of DVT (deep vein thrombosis) Z86.718 [place] [address] [address] Oct, History of DVT (deep vein thrombosis) Z86.718 ; Mixed hyperlipidemia E78.2 ; Impacted cerumen of right ear H61.21 ; Encounter for immunization Z23 and Hyperlipidemia E78.5 [place] [address] [address] Sep, History of DVT (deep vein thrombosis) Z86.718 ; Mixed hyperlipidemia E78.2 ; Impacted cerumen of right ear H61.21 ; Encounter for immunization Z23 and Hyperlipidemia E78.5 [place] [address] [address] Aug, History of DVT (deep vein thrombosis) Z86.718 and Acute nasopharyngitis J00 [place] [address] [address] Aug, Bronchitis J40 and History of DVT (deep vein thrombosis) Z86.718 [place] [address] [address] Aug, History of DVT (deep vein thrombosis) Z86.718 and Pure hypercholesterolemia E78.00 [place] [address] [address] Aug, Mixed hyperlipidemia E78.2 and History of DVT (deep vein thrombosis) Z86.718 [place] [address] [address] Aug, Mixed hyperlipidemia E78.2 [facility] [address] [place] [address] Jul, Encounter for immunization Z23 [place] [address] [place] [id number] [place] [address] Jul, History of DVT (deep vein thrombosis) Z86.718 [place] [address] [place] [id number] [place] [address] Jul, History of DVT (deep vein thrombosis) Z86.718 and Encounter for immunization Z23 [place] [address] [place] [id number] [place] [address] May, [place] [address] [place] [id number] [place] [address] May, History of DVT (deep vein thrombosis) Z86.718 [place] [address] [place] [id number] [place] [address] Apr, History of DVT (deep vein thrombosis) Z86.718 [place] [address] [place] [id number] [place] [address] Mar, History of DVT (deep vein thrombosis) Z86.718 [place] [address] [place] [id number] [place] [address] Jan, History of DVT (deep vein thrombosis) Z86.718 [place] [address] [place] [id number] [place] [address] December, [place] [address] [place] [id number] [place] [address] December, History of DVT (deep vein thrombosis) Z86.718 and Hyperlipidemia E78.5 [place] [address] [place] [address] Dec, History of DVT (deep vein thrombosis) Z86.718 ; Impacted cerumen of right ear H61.21 and Hyperlipidemia E78.5 [place] [address] [address] Dec, DVT (deep venous thrombosis) I82.409 [place] [address] [place] [id number] [place] [address] Dec, DVT (deep venous thrombosis) I82.409 [place] [address] [place] [id number] [place] [address] Oct, DVT (deep venous thrombosis) I82.409 [place] [address] [place] [id number] [place] [address] Oct, DVT (deep venous thrombosis) I82.409 [place] [address] [place] [id number] [place] [address] Oct, [place] [address] [place] [id number] [place] [address] Oct, History of DVT (deep vein thrombosis) Z86.718 [place] [address] [place] [id number] [place] [address] Oct, DVT (deep venous thrombosis) I82.409 [place] [address] [place] [id number] [place] [address] Oct, History of DVT (deep vein thrombosis) Z86.718 [place] [address] [place] [address] Oct, History of DVT (deep vein thrombosis) Z86.718 IMMUNIZATIONS No Known Immunizations SOCIAL HISTORY Never Assessed REASON FOR VISIT Lab (walk-in) PLAN OF CARE VITAL SIGNS MEDICATIONS Unknown Medications RESULTS Name Result Date Reference Range INR (IN HOUSE) 2018-07-22 INR 2.7 1.10 - 3.30 PREVIOUS INR 5.6 CURRENT COUMADIN DOSE 7 mg 3 days, 5 mg 4 days NEW COUMADIN DOSE Lot # [id number] Exp date 08/2019 PROCEDURES No Known procedures INSTRUCTIONS MEDICATIONS ADMINISTERED [...]
--- OUTSIDE RECORDS SUMMARY | 2019-03-17 19:06 | XMS REPORT ---
Author Author CHARLENE GARCIA [facility] Address [address] [place] [address] Care Team Providers Care Soda Flaker Name Role Phone CHARLENE GARCIA Unavailable PROBLEMS Type Condition ICD9-CM Code GSH82-HO Code Onset Dates Condition Status SNOMED Code Problem Urinary hesitancy R39.11 Active 0111621 Problem Atelectasis J98.11 Active 69356846 Problem Pure hypercholesterolemia E78.00 Active 904002581 Problem History of DVT (deep vein thrombosis) Z86.718 Active 791477373 Problem DVT (deep venous thrombosis) I82.409 Active 859605803 Problem Bronchitis J40 Active 92104666 ALLERGIES No Information ENCOUNTERS Encounter Location Date Diagnosis [place] [address] [address] 27 Jul, 2018 History of DVT (deep vein thrombosis) Z86.718 [place] [address] [address] 27 Jul, 2018 History of DVT (deep vein thrombosis) Z86.718 [place] [address] [address] 20 Jul, 2018 DVT (deep venous thrombosis) I82.409 [place] [address] [address] 15 Jul, 2018 DVT (deep venous thrombosis) I82.409 [place] [address] [address] 13 Jul, 2018 Urinary hesitancy R39.11 and History of DVT (deep vein thrombosis) Z86.718 [place] [address] [address] 13 Jul, 2018 DVT (deep venous thrombosis) I82.409 [place] [address] [place] [address] 09 Jul, 2018 DVT (deep venous thrombosis) I82.409 ; Closed fracture of one rib of right side with routine healing, subsequent encounter S22.31XD ; Atelectasis J98.11 and half-way (current) use of anticoagulants Z79.01 [place] [address] [place] [id number] [place] [address] 05 Jul, 2018 Pneumonia of right lower lobe due to infectious organism J18.1 and DVT (deep venous thrombosis) I82.409 [place] [address] [place] [id number] [place] [address] 02 Jul, 2018 Injury of chest wall, initial encounter S29.9XXA [place] [address] [place] [id number] [place] [address] Jun, Injury of chest wall, initial encounter S29.9XXA ; History of DVT (deep vein thrombosis) Z86.718 and Concussion without loss of consciousness, initial encounter S06.0X0A [place] [address] [place] [id number] [place] [address] May, DVT (deep venous thrombosis) I82.409 [place] [address] [place] [id number] [place] [address] Apr, DVT (deep venous thrombosis) I82.409 [place] [address] [place] [id number] [place] [address] Apr, Personal history of other venous thrombosis and embolism Z86.718 [place] [address] [place] [id number] [place] [address] Jan, History of DVT (deep vein thrombosis) Z86.718 [place] [address] [place] [id number] [place] [address] December, Medicare annual wellness visit, initial Z00.00 ; Pure hypercholesterolemia E78.00 ; History of DVT (deep vein thrombosis) Z86.718 and Encounter for immunization Z23 [facility] [address] [place] [id number] [place] [address] December, History of DVT (deep vein thrombosis) Z86.718 [facility] [address] [place] [id number] [place] [address] Oct, History of DVT (deep vein thrombosis) Z86.718 [place] [address] [address] Oct, History of DVT (deep vein thrombosis) Z86.718 [place] [address] [place] [id number] [place] [address] Sep, [place] [address] [place] [id number] [place] [address] Sep, Pure hypercholesterolemia E78.00 and History of DVT (deep vein thrombosis) Z86.718 [place] [address] [place] [id number] [place] [address] Sep, Pure hypercholesterolemia E78.00 [place] [address] [place] [id number] [place] [address] Aug, History of DVT (deep vein thrombosis) Z86.718 [place] [address] [place] [id number] [place] [address] Aug, Encounter for immunization Z23 [place] [address] [address] Jul, History of DVT (deep vein thrombosis) Z86.718 [place] [address] [place] [id number] [place] [address] Jun, History of DVT (deep vein thrombosis) Z86.718 and Bronchitis J40 [place] [address] [place] [id number] [place] [address] Jun, Personal history of other venous thrombosis and embolism Z86.718 and History of DVT (deep vein thrombosis) Z86.718 [place] [address] [place] [id number] [place] [address] Apr, Personal history of other venous thrombosis and embolism Z86.718 and History of DVT (deep vein thrombosis) Z86.718 [place] [address] [place] [id number] [place] [address] Mar, History of DVT (deep vein thrombosis) Z86.718 [place] [address] [address] Mar, Personal history of other venous thrombosis and embolism Z86.718 [place] [address] [address] Jan, History of DVT (deep vein thrombosis) Z86.718 [place] [address] [place] [id number] [place] [address] Jan, Acute nasopharyngitis J00 [place] [address] [address] Jan, History of DVT (deep vein thrombosis) Z86.718 and Bronchitis J40 [place] [address] [address] Jan, [place] [address] [place] [id number] [place] [address] Jan, History of DVT (deep vein thrombosis) Z86.718 [place] [address] [place] [id number] [place] [address] Jan, Personal history of other venous thrombosis and embolism Z86.718 and History of DVT (deep vein thrombosis) Z86.718 [place] [address] [address] Jan, Personal history of other venous thrombosis and embolism Z86.718 and History of DVT (deep vein thrombosis) Z86.718 [place] [address] [place] [id number] [place] [address] Jan, History of DVT (deep vein thrombosis) Z86.718 [place] [address] [place] [id number] [place] [address] December, History of DVT (deep vein thrombosis) Z86.718 [place] [address] [address] December, History of DVT (deep vein thrombosis) Z86.718 [place] [address] [address] Dec, History of DVT (deep vein thrombosis) Z86.718 [place] [address] [address] Oct, History of DVT (deep vein thrombosis) Z86.718 [place] [address] [address] Oct, History of DVT (deep vein thrombosis) Z86.718 ; Mixed hyperlipidemia E78.2 ; Impacted cerumen of right ear H61.21 ; Encounter for immunization Z23 and Hyperlipidemia E78.5 [place] [address] [address] Sep, History of DVT (deep vein thrombosis) Z86.718 ; Mixed hyperlipidemia E78.2 ; Impacted cerumen of right ear H61.21 ; Encounter for immunization Z23 and Hyperlipidemia E78.5 [place] [address] [address] Aug, History of DVT (deep vein thrombosis) Z86.718 and Acute nasopharyngitis J00 [place] [address] [address] Aug, Bronchitis J40 and History of DVT (deep vein thrombosis) Z86.718 [place] [address] [address] Aug, History of DVT (deep vein thrombosis) Z86.718 and Pure hypercholesterolemia E78.00 [facility] [address] [place] [address] Aug, Mixed hyperlipidemia E78.2 and History of DVT (deep vein thrombosis) Z86.718 [facility] [address] [place] [id number] [place] [address] Aug, Mixed hyperlipidemia E78.2 [facility] [address] [address] Jul, Encounter for immunization Z23 [facility] [address] [place] [id number] [place] [address] Jul, History of DVT (deep vein thrombosis) Z86.718 [place] [address] [place] [id number] [place] [address] Jul, History of DVT (deep vein thrombosis) Z86.718 and Encounter for immunization Z23 [place] [address] [place] [id number] [place] [address] May, [facility] [address] [place] [id number] [place] [address] May, History of DVT (deep vein thrombosis) Z86.718 [facility] [address] [place] [id number] [place] [address] Apr, History of DVT (deep vein thrombosis) Z86.718 [facility] [address] [place] [id number] [place] [address] Mar, History of DVT (deep vein thrombosis) Z86.718 [facility] [address] [place] [address] Jan, History of DVT (deep vein thrombosis) Z86.718 [facility] [address] [place] [id number] [place] [address] December, [facility] [address] [place] [id number] [place] [address] December, History of DVT (deep vein thrombosis) Z86.718 and Hyperlipidemia E78.5 [place] [address] [place] [id number] [place] [address] Dec, History of DVT (deep vein thrombosis) Z86.718 ; Impacted cerumen of right ear H61.21 and Hyperlipidemia E78.5 [place] [address] [place] [id number] [place] [address] Dec, DVT (deep venous thrombosis) I82.409 [place] [address] [place] [id number] [place] [address] Dec, DVT (deep venous thrombosis) I82.409 [place] [address] [place] [id number] [place] [address] Oct, DVT (deep venous thrombosis) I82.409 [place] [address] [place] [id number] [place] [address] Oct, DVT (deep venous thrombosis) I82.409 [place] [address] [place] [id number] [place] [address] Oct, [place] [address] [place] [id number] [place] [address] Oct, History of DVT (deep vein thrombosis) Z86.718 [place] [address] [place] [id number] [place] [address] Oct, DVT (deep venous thrombosis) I82.409 [place] [address] [place] [id number] [place] [address] Oct, History of DVT (deep vein thrombosis) Z86.718 [place] [address] [place] [id number] [place] [address] Oct, History of DVT (deep vein thrombosis) Z86.718 IMMUNIZATIONS No Known Immunizations SOCIAL HISTORY Never Assessed REASON FOR VISIT Lab PLAN OF CARE VITAL SIGNS MEDICATIONS Unknown Medications RESULTS Name Result Date Reference Range INR (IN HOUSE) 2018-07-29 INR 3.3 1.10 - 3.30 PREVIOUS INR 2.7 CURRENT COUMADIN DOSE 7mg MWF/5mg SSTT NEW COUMADIN DOSE Lot # [id number] Exp date 01 Sep 2019 PROCEDURES No Known procedures INSTRUCTIONS MEDICATIONS ADMINISTERED [...]
--- OUTSIDE RECORDS SUMMARY | 2019-03-17 19:07 | XMS REPORT ---
Author Author CHARLENE GARCIA Organization [facility] Address [address] [place] [address] Care Team Providers Care Aircraft Designer Name Role Phone CHARLENE GARCIA Unavailable PROBLEMS Type Condition ICD9-CM Code RDT92-SE Code Onset Dates Condition Status SNOMED Code Problem Urinary hesitancy R39.11 Active 0817407 Problem Atelectasis J98.11 Active 22830256 Problem Pure hypercholesterolemia E78.00 Active 167803647 Problem History of DVT (deep vein thrombosis) Z86.718 Active 461714923 Problem DVT (deep venous thrombosis) I82.409 Active 652339668 Problem Bronchitis J40 Active 93298226 ALLERGIES No Information ENCOUNTERS Encounter Location Date Diagnosis [place] [address] [address] 15 Jul, 2018 DVT (deep venous thrombosis) I82.409 [place] [address] [address] 13 Jul, 2018 Urinary hesitancy R39.11 and History of DVT (deep vein thrombosis) Z86.718 [place] [address] [place] [id number] [place] [address] 13 Jul, 2018 DVT (deep venous thrombosis) I82.409 [place] [address] [address] 09 Jul, 2018 DVT (deep venous thrombosis) I82.409 ; Closed fracture of one rib of right side with routine healing, subsequent encounter S22.31XD ; 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 J98.11 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 [place] [address] [place] [id number] [place] [address] 05 Jul, 2018 Pneumonia of right lower lobe due to infectious organism J18.1 and DVT (deep venous thrombosis) I82.409 [facility] [address] [address] Jul, Injury of chest wall, initial encounter S29.9XXA [facility] [address] [place] [id number] [place] [address] Jun, Injury of chest wall, initial encounter S29.9XXA ; History of DVT (deep vein thrombosis) Z86.718 and Concussion without loss of consciousness, initial encounter S06.0X0A [place] [address], [place] [address] May, DVT (deep venous thrombosis) I82.409 [place] [address] [place] [id number] [place] [address] Apr, DVT (deep venous thrombosis) I82.409 [place] [address] [place] [id number] [place] [address] Apr, Personal history of other venous thrombosis and embolism Z86.718 [place] [address] [place] [address] Jan, History of DVT (deep vein thrombosis) Z86.718 [place] [address] [place] [address] December, Medicare annual wellness visit, initial Z00.00 ; Pure hypercholesterolemia E78.00 ; History of DVT (deep vein thrombosis) Z86.718 and Encounter for immunization Z23 [place] [address], [place] [address] December, History of DVT (deep vein thrombosis) Z86.718 [place] [address] [place] [id number] [place] [address] Oct, History of DVT (deep vein thrombosis) Z86.718 [place] [address], [place] [address] Oct, History of DVT (deep vein thrombosis) Z86.718 [place] [address] [place] [address] Sep, [place] [address] [place] [id number] [place] [address] Sep, Pure hypercholesterolemia E78.00 and History of DVT (deep vein thrombosis) Z86.718 [place] [address] [place] [id number] [place] [address] Sep, Pure hypercholesterolemia E78.00 [place] [address] [place] [id number] [place] [address] Aug, History of DVT (deep vein thrombosis) Z86.718 [place] [address] [place] [id number] [place] [address] Aug, Encounter for immunization Z23 [place] [address] [address] Jul, History of DVT (deep vein thrombosis) Z86.718 [place] [address] [place] [id number] [place] [address] Jun, History of DVT (deep vein thrombosis) Z86.718 and Bronchitis J40 [place] [address] [place] [id number] [place] [address] Jun, Personal history of other venous thrombosis and embolism Z86.718 and History of DVT (deep vein thrombosis) Z86.718 [place] [address] [place] [address] Apr, Personal history of other venous thrombosis and embolism Z86.718 and History of DVT (deep vein thrombosis) Z86.718 [place] [address] [place] [id number] [place] [address] Mar, History of DVT (deep vein thrombosis) Z86.718 [place] [address] [place] [id number] [place] [address] Mar, Personal history of other venous thrombosis and embolism Z86.718 [facility] [address], [place] [address] Jan, History of DVT (deep vein thrombosis) Z86.718 [place] [address] [place] [address] Jan, Acute nasopharyngitis J00 [place] [address] [place] [id number] [place] [address] Jan, History of DVT (deep vein thrombosis) Z86.718 and Bronchitis J40 [place] [address] [place] [id number] [place] [address] Jan, [place] [address] [place] [id number] [place] [address] Jan, History of DVT (deep vein thrombosis) Z86.718 [place] [address] [place] [address] Jan, Personal history of other venous thrombosis and embolism Z86.718 and History of DVT (deep vein thrombosis) Z86.718 [place] [address] [place] [address] Jan, Personal history of other venous thrombosis and embolism Z86.718 and History of DVT (deep vein thrombosis) Z86.718 [place] [address] [place] [address] Jan, History of DVT (deep vein thrombosis) Z86.718 [place] [address] [place] [address] December, History of DVT (deep vein thrombosis) Z86.718 [place] [address] [place] [address] December, History of DVT (deep vein thrombosis) Z86.718 [place] [address] [place] [address] Dec, History of DVT (deep vein thrombosis) Z86.718 [place] [address] [address] Oct, History of DVT (deep vein thrombosis) Z86.718 [place] [address] [address] Oct, History of DVT (deep vein thrombosis) Z86.718 ; Mixed hyperlipidemia E78.2 ; Impacted cerumen of right ear H61.21 ; Encounter for immunization Z23 and Hyperlipidemia E78.5 [place] [address] [address] Sep, History of DVT (deep vein thrombosis) Z86.718 ; Mixed hyperlipidemia E78.2 ; Impacted cerumen of right ear H61.21 ; Encounter for immunization Z23 and Hyperlipidemia E78.5 [place] [address] [address] Aug, History of DVT (deep vein thrombosis) Z86.718 and Acute nasopharyngitis J00 [place] [address] [address] Aug, Bronchitis J40 and History of DVT (deep vein thrombosis) Z86.718 [place] [address] [address] Aug, History of DVT (deep vein thrombosis) Z86.718 and Pure hypercholesterolemia E78.00 [place] [address] [place] [id number] [place] [address] Aug, Mixed hyperlipidemia E78.2 and History of DVT (deep vein thrombosis) Z86.718 [place] [address] [address] Aug, Mixed hyperlipidemia E78.2 [place] [address] [address] Jul, Encounter for immunization Z23 [place] [address] [place] [address] Jul, History of DVT (deep vein thrombosis) Z86.718 [place] [address] [place] [id number] [place] [address] Jul, History of DVT (deep vein thrombosis) Z86.718 and Encounter for immunization Z23 [place] [address] [address] May, [place] [address] [place] [id number] [place] [address] May, History of DVT (deep vein thrombosis) Z86.718 [place] [address] [place] [id number] [place] [address] Apr, History of DVT (deep vein thrombosis) Z86.718 [place] [address] [place] [id number] [place] [address] Mar, History of DVT (deep vein thrombosis) Z86.718 [place] [address] [place] [id number] [place] [address] Jan, History of DVT (deep vein thrombosis) Z86.718 [place] [address] [place] [id number] [place] [address] December, [place] [address] [place] [id number] [place] [address] December, History of DVT (deep vein thrombosis) Z86.718 and Hyperlipidemia E78.5 [place] [address] [place] [id number] [place] [address] Dec, History of DVT (deep vein thrombosis) Z86.718 ; Impacted cerumen of right ear H61.21 and Hyperlipidemia E78.5 [place] [address] [place] [address] Dec, DVT (deep venous thrombosis) I82.409 [place] [address], [place] [address] Dec, DVT (deep venous thrombosis) I82.409 [place] [address] [place] [id number] [place] [address] Oct, DVT (deep venous thrombosis) I82.409 [place] [address] [place] [address] Oct, DVT (deep venous thrombosis) I82.409 [place] [address] [place] [address] Oct, [place] [address] [place] [id number] [place] [address] Oct, History of DVT (deep vein thrombosis) Z86.718 [place] [address] [place] [address] Oct, DVT (deep venous thrombosis) I82.409 [place] [address] [place] [address] Oct, History of DVT (deep vein thrombosis) Z86.718 [place] [address] [place] [address] Oct, History of DVT (deep vein thrombosis) Z86.718 IMMUNIZATIONS No Known Immunizations SOCIAL HISTORY Never Assessed REASON FOR VISIT Lab (walk-in) PLAN OF CARE VITAL SIGNS MEDICATIONS Unknown Medications RESULTS Name Result Date Reference Range INR (IN HOUSE) 2018-07-17 INR 5.6 1.10 - 3.30 PREVIOUS INR 6.7 CURRENT COUMADIN DOSE 7 mg 3 days, 5 mg 4 days NEW COUMADIN DOSE Lot # [id number] Exp date 08/2019 PROCEDURES Procedure Date Ordered Result Body Site PROTHROMBIN TIME Jul 17, 2018 INSTRUCTIONS MEDICATIONS ADMINISTERED No Known Medications [...]
--- OUTSIDE RECORDS SUMMARY | 2019-03-17 19:07 | XMS REPORT ---
Author Author CHARLENE GARCIA Organization [facility] Address [address] [place] [address] Care Team Providers Care Visualizer Name Role Phone CHARLENE GRACIA Unavailable PROBLEMS Type Condition ICD9-CM Code SAB05-SZ Code Onset Dates Condition Status SNOMED Code Problem Urinary hesitancy R39.11 Active 2410497 Problem Atelectasis J98.11 Active 85357297 Problem Pure hypercholesterolemia E78.00 Active 315294600 Problem History of DVT (deep vein thrombosis) Z86.718 Active 302473492 Problem DVT (deep venous thrombosis) I82.409 Active 698635024 Problem Bronchitis J40 Active 31151318 ALLERGIES No Known Allergies ENCOUNTERS Encounter Location Date Diagnosis [place] [address] [address] 13 Jul, 2018 Urinary hesitancy R39.11 and History of DVT (deep vein thrombosis) Z86.[address] [address] 13 Jul, 2018 DVT (deep venous thrombosis) I82.409 [place] [address] [address] 09 Jul, 2018 DVT (deep venous thrombosis) I82.409 ; Closed fracture of one rib of right side with routine healing, subsequent encounter S22.31XD ; 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.11 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 [place] [address] [address] 05 Jul, 2018 Pneumonia of right lower lobe due to infectious organism J18.1 and DVT (deep venous thrombosis) I82.409 [place] [address] [address] Jul, Injury of chest wall, initial encounter S29.9XXA [facility] [address] [place] [id number] [place] [address] Jun, Injury of chest wall, initial encounter S29.9XXA ; History of DVT (deep vein thrombosis) Z86.718 and Concussion without loss of consciousness, initial encounter S06.0X0A [facility] [address] [place] [id number] [place] [address] May, DVT (deep venous thrombosis) I82.409 [place] [address] [place] [id number] [place] [address] Apr, DVT (deep venous thrombosis) I82.409 [place] [address] [place] [id number] [place] [address] Apr, Personal history of other venous thrombosis and embolism Z86.718 [place] [address] [place] [id number] [place] [address] Jan, History of DVT (deep vein thrombosis) Z86.718 [place] [address] [place] [id number] [place] [address] December, Medicare annual wellness visit, initial Z00.00 ; Pure hypercholesterolemia E78.00 ; History of DVT (deep vein thrombosis) Z86.718 and Encounter for immunization Z23 [place] [address] [place] [id number] [place] [address] December, History of DVT (deep vein thrombosis) Z86.718 [place] [address] [place] [address] Oct, History of DVT (deep vein thrombosis) Z86.718 [place] [address] [place] [id number] [place] [address] Oct, History of DVT (deep vein thrombosis) Z86.718 [facility] [id number] [place] [address] Sep, [place] [id number] [place] [address] Sep, Pure hypercholesterolemia E78.00 and History of DVT (deep vein thrombosis) Z86.718 [place] [address] [place] [id number] [place] [address] Sep, Pure hypercholesterolemia E78.00 [place] [address] [place] [id number] [place] [address] Aug, History of DVT (deep vein thrombosis) Z86.718 [place] [address] [place] [id number] [place] [address] Aug, Encounter for immunization Z23 [place] [address] [place] [id number] [place] [address] Jul, History of DVT (deep vein thrombosis) Z86.718 [place] [address] [place] [id number] [place] [address] Jun, History of DVT (deep vein thrombosis) Z86.718 and Bronchitis J40 [place] [address] [place] [id number] [place] [address] Jun, Personal history of other venous thrombosis and embolism Z86.718 and History of DVT (deep vein thrombosis) Z86.718 [place] [address] [place] [address] Apr, Personal history of other venous thrombosis and embolism Z86.718 and History of DVT (deep vein thrombosis) Z86.718 [place] [address] [place] [address] Mar, History of DVT (deep vein thrombosis) Z86.718 [place] [address] [place] [address] Mar, Personal history of other venous thrombosis and embolism Z86.718 [place] [address] [place] [id number] [place] [address] Jan, History of DVT (deep vein thrombosis) Z86.718 [place] [address], [place] [address] Jan, Acute nasopharyngitis J00 [place] [address] [place] [id number] [place] [address] Jan, History of DVT (deep vein thrombosis) Z86.718 and Bronchitis J40 [place] [address] [place] [id number] [place] [address] Jan, [place] [address] [place] [id number] [place] [address] Jan, History of DVT (deep vein thrombosis) Z86.718 [place] [address] [place] [id number] [place] [address] Jan, Personal history of other venous thrombosis and embolism Z86.718 and History of DVT (deep vein thrombosis) Z86.718 [place] [address] [place] [address] Jan, Personal history of other venous thrombosis and embolism Z86.718 and History of DVT (deep vein thrombosis) Z86.718 [place] [address] [place] [address] Jan, History of DVT (deep vein thrombosis) Z86.718 [place] [address], [place] [address] December, History of DVT (deep vein thrombosis) Z86.718 [place] [address], [place] [address] December, History of DVT (deep vein thrombosis) Z86.718 [place] [address], [place] [address] Dec, History of DVT (deep vein thrombosis) Z86.718 [place] [address] [place] [id number] [place] [address] Oct, History of DVT (deep vein thrombosis) Z86.718 [place] [address] [address] 21 Oct, 2016 History of DVT (deep vein thrombosis) Z86.718 ; Mixed hyperlipidemia E78.2 ; Impacted cerumen of right ear H61.21 ; Encounter for immunization Z23 and Hyperlipidemia E78.5 [place] [address] [address] Sep, History of DVT (deep vein thrombosis) Z86.718 ; Mixed hyperlipidemia E78.2 ; Impacted cerumen of right ear H61.21 ; Encounter for immunization Z23 and Hyperlipidemia E78.5 [place] [address] [address] Aug, History of DVT (deep vein thrombosis) Z86.718 and Acute nasopharyngitis J00 [place] [address] [address] Aug, Bronchitis J40 and History of DVT (deep vein thrombosis) Z86.718 [place] [address] [address] Aug, History of DVT (deep vein thrombosis) Z86.718 and Pure hypercholesterolemia E78.00 [place] [address] [place] [id number] [place] [address] Aug, Mixed hyperlipidemia E78.2 and History of DVT (deep vein thrombosis) Z86.718 [place] [address] [place] [id number] [place] [address] Aug, Mixed hyperlipidemia E78.2 [place] [address] [address] Jul, Encounter for immunization Z23 [place] [address] [place] [id number] [place] [address] Jul, History of DVT (deep vein thrombosis) Z86.718 [facility] [address], [place] [address] Jul, History of DVT (deep vein thrombosis) Z86.718 and Encounter for immunization Z23 [facility] [address] [place] [id number] [place] [address] May, [place] [address] [address] May, History of DVT (deep vein thrombosis) Z86.718 [place] [address] [place] [id number] [place] [address] Apr, History of DVT (deep vein thrombosis) Z86.718 [place] [address] [place] [id number] [place] [address] Mar, History of DVT (deep vein thrombosis) Z86.718 [place] [address] [place] [id number] [place] [address] Jan, History of DVT (deep vein thrombosis) Z86.718 [place] [address] [place] [id number] [place] [address] December, [place] [address] [place] [id number] [place] [address] December, History of DVT (deep vein thrombosis) Z86.718 and Hyperlipidemia E78.5 [place] [address] [place] [address] Dec, History of DVT (deep vein thrombosis) Z86.718 ; Impacted cerumen of right ear H61.21 and Hyperlipidemia E78.5 [place] [address] [place] [id number] [place] [address] Dec, DVT (deep venous thrombosis) I82.409 [place] [address] [place] [id number] [place] [address] Dec, DVT (deep venous thrombosis) I82.409 [place] [address], [place] [address] Oct, DVT (deep venous thrombosis) I82.409 [place] [address], [place] [address] Oct, DVT (deep venous thrombosis) I82.409 [place] [address] [place] [address] Oct, [place] [address] [place] [id number] [place] [address] Oct, History of DVT (deep vein thrombosis) Z86.718 [place] [address] [place] [id number] [place] [address] Oct, DVT (deep venous thrombosis) I82.409 [place] [address] [place] [id number] [place] [address] Oct, History of DVT (deep vein thrombosis) Z86.718 [place] [address] [place] [address] Oct, History of DVT (deep vein thrombosis) Z86.718 IMMUNIZATIONS No Known Immunizations SOCIAL HISTORY Never Assessed REASON FOR VISIT blood work- Britney Kowalski , did INR in visit Kristy RN , diarrhea / fever / shakes - x3 days Britney KOWALSKI PLAN OF CARE Activity Details Follow Up 4 days Reason: VITAL SIGNS Height 73 in 2018-07-07 Weight 233 lbs 2018-07-07 Temperature 98 degrees Fahrenheit 2018-07-07 Heart Rate 92 bpm 2018-07-07 Respiratory Rate 20 2018-07-07 BMI 30.74 kg/m2 2018-07-07 Blood pressure systolic 108 mmHg 2018-07-07 Blood pressure diastolic 64 mmHg 2018-07-07 MEDICATIONS Medication Instructions Dosage Frequency Start Date End Date Duration Status Warfarin Sodium 5 Orally Once a day As directed 24h Active Hydrocodone-Acetaminophen 7.5-325 MG Orally every 4 hrs 1 tablet as needed 4h Jul, Active Pravachol 40 Orally Once a dayPM 1 tablet 60 Active Warfarin Sodium 3 TAKE ONE TABLET BY MOUTH DAILY ON SATURDAY, SATURDAY, SATURDAY, AND SATURDAY 52 Active Warfarin Sodium 3 MG Orally, take with the 4 mg to equal 7mg Saturday and Saturday 1 tablet Active Pravachol 40 MG Orally Once a dayPM 1 tablet December, Active Warfarin Sodium 4 TAKE 1 TABLET BY MOUTH ALONG WITH 3 MG TABLET ON SATURDAY,SATURDAY, SATURDAY, SATURDAY, AND SATURDAY 42 Active Metrogel .75 Externally Once a day 1 application to affected area 24h Active Clobetasol Propionate 0.05 % Externally Twice a day 1 application to affected area 12h Active Warfarin Sodium 5 MG TAKE ONE TABLET BY MOUTH DAILY ON SAT AND SATURDAY Active Voltaren 1 % Transdermal as needed Active Tylenol 325 MG Orally every 6 hrs 2 capsules as needed 6h Active RESULTS Name Result Date Reference Range INR (IN HOUSE) 2018-07-07 INR 1.2 1.10 - 3.30 PREVIOUS INR 2.0 CURRENT COUMADIN DOSE 7mg MWF/5mg SSTT NEW COUMADIN DOSE Lot # [id number] Exp date 30 Jan 2019 Xray : Chest 2 View (IN HOUSE) 2018-07-07 PROCEDURES Procedure Date Ordered Result Body Site X-RAY EXAM CHEST 2 VIEWS Jul 07, 2018 PROTHROMBIN TIME Jul 07, 2018 [facility] VISIT ESTABLISHED PATIENT Jul 07, 2018 INSTRUCTIONS MEDICATIONS ADMINISTERED No Known Medications [...]
--- OUTSIDE RECORDS SUMMARY | 2019-03-17 19:07 | XMS REPORT ---
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 Role Phone CHARLENE GARCIA Unavailable PROBLEMS Type Condition ICD9-CM Code GND77-OR Code Onset Dates Condition Status SNOMED Code Problem Urinary hesitancy R39.11 Active 8809147 Problem Atelectasis J98.11 Active 18228277 Problem Pure hypercholesterolemia E78.00 Active 161300940 Problem History of DVT (deep vein thrombosis) Z86.718 Active 720211132 Problem DVT (deep venous thrombosis) I82.409 Active 414345157 Problem Bronchitis J40 Active 64347365 ALLERGIES No Known Allergies ENCOUNTERS Encounter Location Date Diagnosis [place] [address] [address] 13 Jul, 2018 Urinary hesitancy R39.11 and History of DVT (deep vein thrombosis) Z86.[address] [address] 13 Jul, 2018 DVT (deep venous thrombosis) I82.409 [place] [address] [address] 09 Jul, 2018 DVT (deep venous thrombosis) I82.409 ; Closed fracture of one rib of right side with routine healing, subsequent encounter S22.31XD ; Atelectasis J98.11 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 [place] [address] [address] 05 Jul, 2018 Pneumonia of right lower lobe due to infectious organism J18.1 and DVT (deep venous thrombosis) I82.409 [place] [address] [address] Jul, Injury of chest wall, initial encounter S29.9XXA [facility] [address] [place] [id number] [place] [address] Jun, Injury of chest wall, initial encounter S29.9XXA ; History of DVT (deep vein thrombosis) Z86.718 and Concussion without loss of consciousness, initial encounter S06.0X0A [facility] [address] [place] [id number] [place] [address] May, DVT (deep venous thrombosis) I82.409 [place] [address] [place] [id number] [place] [address] Apr, DVT (deep venous thrombosis) I82.409 [place] [address] [place] [id number] [place] [address] Apr, Personal history of other venous thrombosis and embolism Z86.718 [place] [address] [place] [id number] [place] [address] Jan, History of DVT (deep vein thrombosis) Z86.718 [place] [address] [place] [id number] [place] [address] December, Medicare annual wellness visit, initial Z00.00 ; Pure hypercholesterolemia E78.00 ; History of DVT (deep vein thrombosis) Z86.718 and Encounter for immunization Z23 [place] [address] [place] [id number] [place] [address] December, History of DVT (deep vein thrombosis) Z86.718 [place] [address] [place] [address] Oct, History of DVT (deep vein thrombosis) Z86.718 [place] [address] [place] [address] [place] [address] Oct, History of DVT (deep vein thrombosis) Z86.718 [facility] [address] [place] [address] Sep, [place] [address] [place] [address] Sep, Pure hypercholesterolemia E78.00 and History of DVT (deep vein thrombosis) Z86.718 [place] [address] [place] [id number] [place] [address] Sep, Pure hypercholesterolemia E78.00 [place] [address] [place] [id number] [place] [address] Aug, History of DVT (deep vein thrombosis) Z86.718 [place] [address] [place] [id number] [place] [address] Aug, Encounter for immunization Z23 [place] [address] [place] [id number] [place] [address] Jul, History of DVT (deep vein thrombosis) Z86.718 [place] [address] [place] [address] [place] [address] Jun, History of DVT (deep vein thrombosis) Z86.718 and Bronchitis J40 [place] [address] [place] [address] [place] [address] Jun, Personal history of other venous thrombosis and embolism Z86.718 and History of DVT (deep vein thrombosis) Z86.718 [place] [address] [place] [address] Apr, Personal history of other venous thrombosis and embolism Z86.718 and History of DVT (deep vein thrombosis) Z86.718 [place] [address] [place] [address] Mar, History of DVT (deep vein thrombosis) Z86.718 [place] [address] [place] [address] Mar, Personal history of other venous thrombosis and embolism Z86.718 [place] [address] [place] [id number] [place] [address] Jan, History of DVT (deep vein thrombosis) Z86.718 [place] [address] [address] Jan, Acute nasopharyngitis J00 [place] [address] [place] [id number] [place] [address] Jan, History of DVT (deep vein thrombosis) Z86.718 and Bronchitis J40 [place] [address] [place] [address] [place] [address] Jan, [place] [address] [place] [address] [place] [address] Jan, History of DVT (deep vein thrombosis) Z86.718 [place] [address] [place] [address] [place] [address] Jan, Personal history of other venous thrombosis and embolism Z86.718 and History of DVT (deep vein thrombosis) Z86.718 [place] [address] [place] [address] Jan, Personal history of other venous thrombosis and embolism Z86.718 and History of DVT (deep vein thrombosis) Z86.718 [place] [address] [place] [address] Jan, History of DVT (deep vein thrombosis) Z86.718 [place] [address] [address] December, History of DVT (deep vein thrombosis) Z86.718 [place] [address] [address] December, History of DVT (deep vein thrombosis) Z86.718 [place] [address] [address] Dec, History of DVT (deep vein thrombosis) Z86.718 [place] [address] [place] [address] [place] [address] Oct, History of DVT (deep vein thrombosis) Z86.718 [place] [address] [address] 21 Oct, 2016 History of DVT (deep vein thrombosis) Z86.718 ; Mixed hyperlipidemia E78.2 ; Impacted cerumen of right ear H61.21 ; Encounter for immunization Z23 and Hyperlipidemia E78.5 [place] [address] [address] Sep, History of DVT (deep vein thrombosis) Z86.718 ; Mixed hyperlipidemia E78.2 ; Impacted cerumen of right ear H61.21 ; Encounter for immunization Z23 and Hyperlipidemia E78.5 [place] [address] [address] Aug, History of DVT (deep vein thrombosis) Z86.718 and Acute nasopharyngitis J00 [place] [address] [address] Aug, Bronchitis J40 and History of DVT (deep vein thrombosis) Z86.718 [place] [address] [address] Aug, History of DVT (deep vein thrombosis) Z86.718 and Pure hypercholesterolemia E78.00 [place] [address] [place] [id number] [place] [address] Aug, Mixed hyperlipidemia E78.2 and History of DVT (deep vein thrombosis) Z86.718 [place] [address] [place] [address] [place] [address] Aug, Mixed hyperlipidemia E78.2 [place] [address] [address] Jul, Encounter for immunization Z23 [place] [address] [place] [address] [place] [address] Jul, History of DVT (deep vein thrombosis) Z86.718 [facility] [address] [address] Jul, History of DVT (deep vein thrombosis) Z86.718 and Encounter for immunization Z23 [facility] [address] [place] [id number] [place] [address] May, [place] [address] [address] May, History of DVT (deep vein thrombosis) Z86.718 [place] [address] [place] [address] [place] [address] Apr, History of DVT (deep vein thrombosis) Z86.718 [place] [address] [place] [address] [place] [address] Mar, History of DVT (deep vein thrombosis) Z86.718 [place] [address] [place] [address] [place] [address] Jan, History of DVT (deep vein thrombosis) Z86.718 [place] [address] [place] [address] [place] [address] December, [place] [address] [place] [address] [place] [address] December, History of DVT (deep vein thrombosis) Z86.718 and Hyperlipidemia E78.5 [place] [address] [place] [address] Dec, History of DVT (deep vein thrombosis) Z86.718 ; Impacted cerumen of right ear H61.21 and Hyperlipidemia E78.5 [place] [address] [place] [address] [place] [address] Dec, DVT (deep venous thrombosis) I82.409 [place] [address] [place] [address] [place] [address] Dec, DVT (deep venous thrombosis) I82.409 [place] [address] [address] Oct, DVT (deep venous thrombosis) I82.409 [place] [address] [place] [address] Oct, DVT (deep venous thrombosis) I82.409 [place] [address] [place] [address] Oct, [place] [address] [place] [id number] [place] [address] Oct, History of DVT (deep vein thrombosis) Z86.718 [place] [address] [place] [address] [place] [address] Oct, DVT (deep venous thrombosis) I82.409 [place] [address] [place] [address] Oct, History of DVT (deep vein thrombosis) Z86.718 [place] [address] [place] [address] Oct, History of DVT (deep vein thrombosis) Z86.718 IMMUNIZATIONS No Known Immunizations SOCIAL HISTORY Never Assessed REASON FOR VISIT Pt reports he has been using his normal dosage of his medication and not followi ng the previous change. -Seth ROBLES PLAN OF CARE Activity Details Follow Up 1 Week Reason: VITAL SIGNS Height 73 in 2018-07-11 Weight 233 lbs 2018-07-11 Temperature 98.6 degrees Fahrenheit 2018-07-11 Heart Rate 90 bpm 2018-07-11 Respiratory Rate 20 2018-07-11 Oximetry 99 % 2018-07-11 BMI 30.74 kg/m2 2018-07-11 Blood pressure systolic 110 mmHg 2018-07-11 Blood pressure diastolic 70 mmHg 2018-07-11 MEDICATIONS Medication Instructions Dosage Frequency Start Date End Date Duration Status Pravachol 40 MG Orally Once a dayPM 1 tablet December, Active Voltaren 1 % Transdermal as needed Active Warfarin Sodium 5 MG TAKE ONE TABLET BY MOUTH DAILY ON SAT AND SATURDAY Active Tylenol 325 MG Orally every 6 hrs 2 capsules as needed 6h Active Warfarin Sodium 4 TAKE 1 TABLET BY MOUTH ALONG WITH 3 MG TABLET ON SATURDAY,SATURDAY, SATURDAY, SATURDAY, AND SATURDAY 42 Active Warfarin Sodium 5 Orally Once a day As directed 24h Active Warfarin Sodium 3 TAKE ONE TABLET BY MOUTH DAILY ON SATURDAY, SATURDAY, SATURDAY, AND SATURDAY 52 Active Metrogel .75 Externally Once a day 1 application to affected area 24h Active Warfarin Sodium 3 MG Orally, take with the 4 mg to equal 7mg Saturday and Saturday 1 tablet Active Levaquin 500 mg Orally Once a day 1 tablet 24h Jul, Jul, 5 days Active Clobetasol Propionate 0.05 % Externally Twice a day 1 application to affected area 12h Active Hydrocodone-Acetaminophen 7.5-325 MG Orally every 4 hrs 1 tablet as needed 4h Jul, Active Pravachol 40 Orally Once a dayPM 1 tablet 60 Active RESULTS Name Result Date Reference Range INR (IN HOUSE) 2018-07-11 INR 1.5 1.10 - 3.30 PREVIOUS INR 1.2 CURRENT COUMADIN DOSE 7 mg 3 days, 5 mg 4 days NEW COUMADIN DOSE Lot # [id number] Exp date 12/2018 PROCEDURES Procedure Date Ordered Result Body Site PROTHROMBIN TIME Jul 11, 2018 [facility] VISIT ESTABLISHED PATIENT Jul 11, 2018 INSTRUCTIONS MEDICATIONS ADMINISTERED No Known Medications [...]
--- OUTSIDE RECORDS SUMMARY | 2019-03-17 19:07 | XMS REPORT ---
Author Author CHARLENE GARCIA Organization [facility] Address [address] [place] [address] Care Team Providers Care Utility Driver Name Role Phone CHARLENE GARCIA Unavailable PROBLEMS Type Condition ICD9-CM Code JLE18-SG Code Onset Dates Condition Status SNOMED Code Problem Urinary hesitancy R39.11 Active 6970116 Problem Atelectasis J98.11 Active 60316099 Problem Pure hypercholesterolemia E78.00 Active 369258742 Problem History of DVT (deep vein thrombosis) Z86.718 Active 817705628 Problem DVT (deep venous thrombosis) I82.409 Active 159074354 Problem Bronchitis J40 Active 23792425 ALLERGIES No Information ENCOUNTERS Encounter Location Date Diagnosis [place] [address] [address] 13 Jul, 2018 Urinary hesitancy R39.11 and History of DVT (deep vein thrombosis) Z86.718 [place] [address] [address] 13 Jul, 2018 DVT (deep venous thrombosis) I82.409 [place] [address] [address] 09 Jul, 2018 DVT (deep venous thrombosis) I82.409 ; Closed fracture of one rib of right side with routine healing, subsequent encounter S22.31XD ; Atelectasis J98.11 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 [place] [address] [address] 05 Jul, 2018 Pneumonia of right lower lobe due to infectious organism J18.1 and DVT (deep venous thrombosis) I82.409 [place] [address] [address] 02 Jul, 2018 Injury of chest wall, initial encounter S29.9XXA [facility] [address] [place] [id number] [place] [address] Jun, Injury of chest wall, initial encounter S29.9XXA ; History of DVT (deep vein thrombosis) Z86.718 and Concussion without loss of consciousness, initial encounter S06.0X0A [place] [address] [place] [id number] [place] [address] May, DVT (deep venous thrombosis) I82.409 [place] [address] [place] [id number] [place] [address] Apr, DVT (deep venous thrombosis) I82.409 [place] [address] [place] [id number] [place] [address] Apr, Personal history of other venous thrombosis and embolism Z86.718 [place] [address] [place] [id number] [place] [address] Jan, History of DVT (deep vein thrombosis) Z86.718 [place] [address] [place] [id number] [place] [address] December, Medicare annual wellness visit, initial Z00.00 ; Pure hypercholesterolemia E78.00 ; History of DVT (deep vein thrombosis) Z86.718 and Encounter for immunization Z23 [place] [address] [place] [id number] [place] [address] December, History of DVT (deep vein thrombosis) Z86.718 [place] [address] [place] [address] Oct, History of DVT (deep vein thrombosis) Z86.718 [place] [address] [place] [id number] [place] [address] Oct, History of DVT (deep vein thrombosis) Z86.718 [place] [address] [place] [address] Sep, [place] [address] [place] [address] Sep, Pure hypercholesterolemia E78.00 and History of DVT (deep vein thrombosis) Z86.718 [place] [address] [place] [id number] [place] [address] Sep, Pure hypercholesterolemia E78.00 [place] [address] [place] [id number] [place] [address] Aug, History of DVT (deep vein thrombosis) Z86.718 [place] [address] [place] [id number] [place] [address] Aug, Encounter for immunization Z23 [place] [address] [place] [id number] [place] [address] Jul, History of DVT (deep vein thrombosis) Z86.718 [place] [address] [place] [id number] [place] [address] Jun, History of DVT (deep vein thrombosis) Z86.718 and Bronchitis J40 [place] [address] [place] [id number] [place] [address] Jun, Personal history of other venous thrombosis and embolism Z86.718 and History of DVT (deep vein thrombosis) Z86.718 [place] [address] [place] [address] Apr, Personal history of other venous thrombosis and embolism Z86.718 and History of DVT (deep vein thrombosis) Z86.718 [place] [address] [place] [address] [place] [address] Mar, History of DVT (deep vein thrombosis) Z86.718 [place] [address] [place] [id number] [place] [address] Mar, Personal history of other venous thrombosis and embolism Z86.718 [place] [address] [place] [id number] [place] [address] Jan, History of DVT (deep vein thrombosis) Z86.718 [place] [address] [address] Jan, Acute nasopharyngitis J00 [place] [address] [place] [id number] [place] [address] Jan, History of DVT (deep vein thrombosis) Z86.718 and Bronchitis J40 [place] [address] [place] [address] [place] [address] Jan, [place] [address] [place] [id number] [place] [address] Jan, History of DVT (deep vein thrombosis) Z86.718 [place] [address] [place] [id number] [place] [address] Jan, Personal history of other venous thrombosis and embolism Z86.718 and History of DVT (deep vein thrombosis) Z86.718 [place] [address] [place] [address] Jan, Personal history of other venous thrombosis and embolism Z86.718 and History of DVT (deep vein thrombosis) Z86.718 [place] [address] [place] [address] Jan, History of DVT (deep vein thrombosis) Z86.718 [place] [address] [place] [address] December, History of DVT (deep vein thrombosis) Z86.718 [place] [address] [address] December, History of DVT (deep vein thrombosis) Z86.718 [place] [address] [address] Dec, History of DVT (deep vein thrombosis) Z86.718 [place] [address] [place] [id number] [place] [address] Oct, History of DVT (deep vein thrombosis) Z86.718 [place] [address] [address] 21 Oct, 2016 History of DVT (deep vein thrombosis) Z86.718 ; Mixed hyperlipidemia E78.2 ; Impacted cerumen of right ear H61.21 ; Encounter for immunization Z23 and Hyperlipidemia E78.5 [place] [address] [address] Sep, History of DVT (deep vein thrombosis) Z86.718 ; Mixed hyperlipidemia E78.2 ; Impacted cerumen of right ear H61.21 ; Encounter for immunization Z23 and Hyperlipidemia E78.5 [place] [address] [address] Aug, History of DVT (deep vein thrombosis) Z86.718 and Acute nasopharyngitis J00 [place] [address] [address] Aug, Bronchitis J40 and History of DVT (deep vein thrombosis) Z86.718 [place] [address] [address] Aug, History of DVT (deep vein thrombosis) Z86.718 and Pure hypercholesterolemia E78.00 [place] [address] [address] Aug, Mixed hyperlipidemia E78.2 and History of DVT (deep vein thrombosis) Z86.718 [place] [address] [address] Aug, Mixed hyperlipidemia E78.2 [place] [address] [address] Jul, Encounter for immunization Z23 [place] [address] [address] Jul, History of DVT (deep vein thrombosis) Z86.718 [place] [address] [address] Jul, History of DVT (deep vein thrombosis) Z86.718 and Encounter for immunization Z23 [facility] [address] [place] [id number] [place] [address] May, [place] [address] [address] May, History of DVT (deep vein thrombosis) Z86.718 [place] [address] [place] [id number] [place] [address] Apr, History of DVT (deep vein thrombosis) Z86.718 [place] [address] [place] [id number] [place] [address] Mar, History of DVT (deep vein thrombosis) Z86.718 [place] [address] [place] [id number] [place] [address] Jan, History of DVT (deep vein thrombosis) Z86.718 [place] [address] [place] [id number] [place] [address] December, [place] [address] [place] [id number] [place] [address] December, History of DVT (deep vein thrombosis) Z86.718 and Hyperlipidemia E78.5 [place] [address] [place] [id number] [place] [address] Dec, History of DVT (deep vein thrombosis) Z86.718 ; Impacted cerumen of right ear H61.21 and Hyperlipidemia E78.5 [place] [address] [place] [id number] [place] [address] Dec, DVT (deep venous thrombosis) I82.409 [place] [address] [place] [id number] [place] [address] Dec, DVT (deep venous thrombosis) I82.409 [place] [address] [address] Oct, DVT (deep venous thrombosis) I82.409 [place] [address] [place] [address] Oct, DVT (deep venous thrombosis) I82.409 [place] [address] [address] Oct, [place] [address] [place] [id number] [place] [address] Oct, History of DVT (deep vein thrombosis) Z86.718 [place] [address] [place] [id number] [place] [address] Oct, DVT (deep venous thrombosis) I82.409 [place] [address] [place] [address] Oct, History of DVT (deep vein thrombosis) Z86.718 [place] [address] [address] Oct, History of DVT (deep vein thrombosis) Z86.718 IMMUNIZATIONS No Known Immunizations SOCIAL HISTORY Never Assessed REASON FOR VISIT Lab (walk-in) PLAN OF CARE VITAL SIGNS MEDICATIONS Unknown Medications RESULTS Name Result Date Reference Range INR (IN HOUSE) 2018-07-15 INR 6.7 1.10 - 3.30 PREVIOUS INR 1.5 CURRENT COUMADIN DOSE 7 mg 3 days, 5 mg 4 days NEW COUMADIN DOSE Lot # [id number] Exp date 08/2019 PROCEDURES Procedure Date Ordered Result Body Site PROTHROMBIN TIME Jul 15, 2018 INSTRUCTIONS MEDICATIONS ADMINISTERED No [...]
--- OUTSIDE RECORDS SUMMARY | 2019-03-17 19:08 | XMS REPORT ---
Author Author CHARLENE GARCIA [facility] Address [address] [place] [address] Care Team Providers Care Manager Commodities Name Role Phone CHARLENE GARCIA Unavailable PROBLEMS Type Condition ICD9-CM Code DIP17-QY Code Onset Dates Condition Status SNOMED Code Problem DVT (deep venous thrombosis) I82.409 Active 166234233 Problem Bronchitis J40 Active 51836522 Problem Pure hypercholesterolemia E78.00 Active 943109036 Problem History of DVT (deep vein thrombosis) Z86.718 Active 733561389 ALLERGIES No Information ENCOUNTERS Encounter Location Date Diagnosis [place] [address] [address] Jul, Injury of chest wall, initial encounter S29.9XXA [place] [address] [address] Jun, Injury of chest wall, initial encounter S29.9XXA ; History of DVT (deep vein thrombosis) Z86.718 and Concussion without loss of consciousness, initial encounter S06.0X0A [place] [address] [place] [id number] [place] [address] May, DVT (deep venous thrombosis) I82.409 [facility] [address] [place] [id number] [place] [address] Apr, DVT (deep venous thrombosis) I82.409 [place] [address] [address] Apr, Personal history of other venous thrombosis and embolism Z86.718 [place] [address] [place] [id number] [place] [address] Jan, History of DVT (deep vein thrombosis) Z86.718 [place] [address] [place] [id number] [place] [address] December, Medicare annual wellness visit, initial Z00.00 ; Pure hypercholesterolemia E78.00 ; History of DVT (deep vein thrombosis) Z86.718 and Encounter for immunization Z23 [place] [address] [place] [id number] [place] [address] December, History of DVT (deep vein thrombosis) Z86.718 [place] [address] [address] Oct, History of DVT (deep vein thrombosis) Z86.718 [place] [address] [address] Oct, History of DVT (deep vein thrombosis) Z86.718 [place] [address] [address] Sep, [place] [address] [address] Sep, Pure hypercholesterolemia E78.00 and History of DVT (deep vein thrombosis) Z86.718 [place] [address] [address] Sep, Pure hypercholesterolemia E78.00 [place] [address] [place] [id number] [place] [address] Aug, History of DVT (deep vein thrombosis) Z86.718 [place] [address] [place] [id number] [place] [address] Aug, Encounter for immunization Z23 [place] [address] [address] Jul, History of DVT (deep vein thrombosis) Z86.718 [place] [address] [place] [id number] [place] [address] Jun, History of DVT (deep vein thrombosis) Z86.718 and Bronchitis J40 [place] [address] [place] [address] Jun, Personal history of other venous thrombosis and embolism Z86.718 and History of DVT (deep vein thrombosis) Z86.718 [place] [address] [place] [id number] [place] [address] Apr, Personal history of other venous thrombosis and embolism Z86.718 and History of DVT (deep vein thrombosis) Z86.718 [place] [address] [place] [id number] [place] [address] Mar, History of DVT (deep vein thrombosis) Z86.718 [place] [address] [place] [id number] [place] [address] Mar, Personal history of other venous thrombosis and embolism Z86.718 [place] [address] [place] [id number] [place] [address] Jan, History of DVT (deep vein thrombosis) Z86.718 [place] [address] [place] [id number] [place] [address] Jan, Acute nasopharyngitis J00 [place] [address] [place] [id number] [place] [address] Jan, History of DVT (deep vein thrombosis) Z86.718 and Bronchitis J40 [place] [address] [place] [id number] [place] [address] Jan, [place] [address] [place] [id number] [place] [address] Jan, History of DVT (deep vein thrombosis) Z86.718 [place] [address] [place] [id number] [place] [address] Jan, Personal history of other venous thrombosis and embolism Z86.718 and History of DVT (deep vein thrombosis) Z86.718 [place] [address] [place] [id number] [place] [address] Jan, Personal history of other venous thrombosis and embolism Z86.718 and History of DVT (deep vein thrombosis) Z86.718 [place] [address] [place] [id number] [place] [address] Jan, History of DVT (deep vein thrombosis) Z86.718 [place] [address] [place] [id number] [place] [address] December, History of DVT (deep vein thrombosis) Z86.718 [place] [address] [address] December, History of DVT (deep vein thrombosis) Z86.718 [place] [address] [address] Dec, History of DVT (deep vein thrombosis) Z86.718 [place] [address] [address] Oct, History of DVT (deep vein thrombosis) Z86.718 [place] [address] [address] Oct, History of DVT (deep vein thrombosis) Z86.718 ; Mixed hyperlipidemia E78.2 ; Impacted cerumen of right ear H61.21 ; Encounter for immunization Z23 and Hyperlipidemia E78.5 [place] [address] [place] [id number] [place] [address] Sep, History of DVT (deep vein thrombosis) Z86.718 ; Mixed hyperlipidemia E78.2 ; Impacted cerumen of right ear H61.21 ; Encounter for immunization Z23 and Hyperlipidemia E78.5 [place] [address] [address] Aug, History of DVT (deep vein thrombosis) Z86.718 and Acute nasopharyngitis J00 [place] [address] [place] [id number] [place] [address] Aug, Bronchitis J40 and History of DVT (deep vein thrombosis) Z86.718 [place] [address] [place] [id number] [place] [address] Aug, History of DVT (deep vein thrombosis) Z86.718 and Pure hypercholesterolemia E78.00 [place] [address] [place] [id number] [place] [address] Aug, Mixed hyperlipidemia E78.2 and History of DVT (deep vein thrombosis) Z86.718 [place] [address] [place] [id number] [place] [address] Aug, Mixed hyperlipidemia E78.2 [place] [address] [address] Jul, Encounter for immunization Z23 [place] [address] [address] Jul, History of DVT (deep vein thrombosis) Z86.718 [place] [address] [place] [id number] [place] [address] Jul, History of DVT (deep vein thrombosis) Z86.718 and Encounter for immunization Z23 [place] [address] [place] [id number] [place] [address] May, [place] [address] [place] [id number] [place] [address] May, History of DVT (deep vein thrombosis) Z86.718 [place] [address] [place] [id number] [place] [address] Apr, History of DVT (deep vein thrombosis) Z86.718 [place] [address] [place] [id number] [place] [address] Mar, History of DVT (deep vein thrombosis) Z86.718 [place] [address] [place] [id number] [place] [address] Jan, History of DVT (deep vein thrombosis) Z86.718 [facility] [address] [place] [id number] [place] [address] December, [facility] [address] [address] December, History of DVT (deep vein thrombosis) Z86.718 and Hyperlipidemia E78.5 [facility] [address] [address] Dec, History of DVT (deep vein thrombosis) Z86.718 ; Impacted cerumen of right ear H61.21 and Hyperlipidemia E78.5 [place] [address] [address] Dec, DVT (deep venous thrombosis) I82.409 [place] [address] [address] Dec, DVT (deep venous thrombosis) I82.409 [place] [address] [place] [id number] [place] [address] Oct, DVT (deep venous thrombosis) I82.409 [place] [address] [place] [id number] [place] [address] Oct, DVT (deep venous thrombosis) I82.409 [place] [address] [place] [id number] [place] [address] Oct, [facility] [address] [place] [id number] [place] [address] Oct, History of DVT (deep vein thrombosis) Z86.718 [facility] [address] [place] [id number] [place] [address] Oct, DVT (deep venous thrombosis) I82.409 [facility] [address] [place] [id number] [place] [address] Oct, History of DVT (deep vein thrombosis) Z86.718 [place] [address] [place] [address] Oct, History of DVT (deep vein thrombosis) Z86.718 IMMUNIZATIONS No Known Immunizations SOCIAL HISTORY Never Assessed REASON FOR VISIT PLAN OF CARE VITAL SIGNS MEDICATIONS Medication Instructions Dosage Frequency Start Date End Date Duration Status Hydrocodone-Acetaminophen 7.5-325 MG Orally every 4 hrs 1 tablet as needed 4h Jul, Active RESULTS No Results PROCEDURES No Known procedures [...]
--- OUTSIDE RECORDS SUMMARY | 2019-03-17 19:08 | XMS REPORT ---
Author Author CHARLENE GARCIA Organization [facility] Address [address] [place] [address] Care Team Providers Care Medical Office Worker Name Role Phone CHARLENE GARCIA Unavailable PROBLEMS Type Condition ICD9-CM Code ZZX39-DP Code Onset Dates Condition Status SNOMED Code Problem Urinary hesitancy R39.11 Active 8932947 Problem Atelectasis J98.11 Active 60188168 Problem Pure hypercholesterolemia E78.00 Active 448178349 Problem History of DVT (deep vein thrombosis) Z86.718 Active 610880347 Problem DVT (deep venous thrombosis) I82.409 Active 557783610 Problem Bronchitis J40 Active 71590061 ALLERGIES No Known Allergies ENCOUNTERS Encounter Location Date Diagnosis [place] [address] [address] 13 Jul, 2018 Urinary hesitancy R39.11 and History of DVT (deep vein thrombosis) Z86.[address] [address] 13 Jul, 2018 DVT (deep venous thrombosis) I82.409 [place] [address] [address] 09 Jul, 2018 DVT (deep venous thrombosis) I82.409 ; Closed fracture of one rib of right side with routine healing, subsequent encounter S22.31XD ; Atelectasis J98.11 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 [place] [address] [address] 05 Jul, 2018 Pneumonia of right lower lobe due to infectious organism J18.1 and DVT (deep venous thrombosis) I82.409 [place] [address] [address] Jul, Injury of chest wall, initial encounter S29.9XXA [facility] [address] [place] [id number] [place] [address] Jun, Injury of chest wall, initial encounter S29.9XXA ; History of DVT (deep vein thrombosis) Z86.718 and Concussion without loss of consciousness, initial encounter S06.0X0A [facility] [address] [place] [id number] [place] [address] May, DVT (deep venous thrombosis) I82.409 [place] [address] [place] [id number] [place] [address] Apr, DVT (deep venous thrombosis) I82.409 [place] [address] [place] [address] [place] [address] Apr, Personal history of other venous thrombosis and embolism Z86.718 [place] [address] [place] [address] [place] [address] Jan, History of DVT (deep vein thrombosis) Z86.718 [place] [address] [place] [address] [place] [address] December, Medicare annual wellness visit, initial Z00.00 ; Pure hypercholesterolemia E78.00 ; History of DVT (deep vein thrombosis) Z86.718 and Encounter for immunization Z23 [place] [address] [place] [id number] [place] [address] December, History of DVT (deep vein thrombosis) Z86.718 [place] [address] [place] [address] Oct, History of DVT (deep vein thrombosis) Z86.718 [place] [address] [place] [address] [place] [address] Oct, History of DVT (deep vein thrombosis) Z86.718 [facility] [address] [place] [address] Sep, [place] [address] [place] [address] Sep, Pure hypercholesterolemia E78.00 and History of DVT (deep vein thrombosis) Z86.718 [place] [address] [place] [address] [place] [address] Sep, Pure hypercholesterolemia E78.00 [place] [address] [place] [address] [place] [address] Aug, History of DVT (deep vein thrombosis) Z86.718 [place] [address] [place] [address] [place] [address] Aug, Encounter for immunization Z23 [place] [address] [place] [address] [place] [address] Jul, History of DVT (deep vein thrombosis) Z86.718 [place] [address] [place] [address] [place] [address] Jun, History of DVT (deep vein thrombosis) Z86.718 and Bronchitis J40 [place] [address] [place] [address] [place] [address] Jun, Personal history of other venous thrombosis and embolism Z86.718 and History of DVT (deep vein thrombosis) Z86.718 [place] [address] [place] [address] Apr, Personal history of other venous thrombosis and embolism Z86.718 and History of DVT (deep vein thrombosis) Z86.718 [place] [address] [place] [address] Mar, History of DVT (deep vein thrombosis) Z86.718 [place] [address] [place] [address] Mar, Personal history of other venous thrombosis and embolism Z86.718 [place] [address] [place] [address] [place] [address] Jan, History of DVT (deep vein thrombosis) Z86.718 [place] [address] [address] Jan, Acute nasopharyngitis J00 [place] [address] [place] [address] [place] [address] Jan, History of DVT (deep vein thrombosis) Z86.718 and Bronchitis J40 [place] [address] [place] [address] [place] [address] Jan, [place] [address] [place] [address] [place] [address] Jan, History of DVT (deep vein thrombosis) Z86.718 [place] [address] [place] [address] [place] [address] Jan, Personal history of other venous thrombosis and embolism Z86.718 and History of DVT (deep vein thrombosis) Z86.718 [place] [address] [place] [address] Jan, Personal history of other venous thrombosis and embolism Z86.718 and History of DVT (deep vein thrombosis) Z86.718 [place] [address] [place] [address] Jan, History of DVT (deep vein thrombosis) Z86.718 [place] [address] [address] December, History of DVT (deep vein thrombosis) Z86.718 [place] [address] [address] December, History of DVT (deep vein thrombosis) Z86.718 [place] [address] [address] Dec, History of DVT (deep vein thrombosis) Z86.718 [place] [address] [place] [address] [place] [address] Oct, History of DVT (deep vein thrombosis) Z86.718 [place] [address] [address] 21 Oct, 2016 History of DVT (deep vein thrombosis) Z86.718 ; Mixed hyperlipidemia E78.2 ; Impacted cerumen of right ear H61.21 ; Encounter for immunization Z23 and Hyperlipidemia E78.5 [place] [address] [address] Sep, History of DVT (deep vein thrombosis) Z86.718 ; Mixed hyperlipidemia E78.2 ; Impacted cerumen of right ear H61.21 ; Encounter for immunization Z23 and Hyperlipidemia E78.5 [place] [address] [address] Aug, History of DVT (deep vein thrombosis) Z86.718 and Acute nasopharyngitis J00 [place] [address] [address] Aug, Bronchitis J40 and History of DVT (deep vein thrombosis) Z86.718 [place] [address] [address] Aug, History of DVT (deep vein thrombosis) Z86.718 and Pure hypercholesterolemia E78.00 [place] [address] [place] [address] [place] [address] Aug, Mixed hyperlipidemia E78.2 and History of DVT (deep vein thrombosis) Z86.718 [place] [address] [place] [address] [place] [address] Aug, Mixed hyperlipidemia E78.2 [place] [address] [address] Jul, Encounter for immunization Z23 [place] [address] [place] [address] [place] [address] Jul, History of DVT (deep vein thrombosis) Z86.718 [facility] [address] [address] Jul, History of DVT (deep vein thrombosis) Z86.718 and Encounter for immunization Z23 [facility] [address] [place] [address] [place] [address] May, [place] [address] [address] May, History of DVT (deep vein thrombosis) Z86.718 [place] [address] [place] [address] [place] [address] Apr, History of DVT (deep vein thrombosis) Z86.718 [place] [address] [place] [address] [place] [address] Mar, History of DVT (deep vein thrombosis) Z86.718 [place] [address] [place] [address] [place] [address] Jan, History of DVT (deep vein thrombosis) Z86.718 [place] [address] [place] [address] [place] [address] December, [place] [address] [place] [address] [place] [address] December, History of DVT (deep vein thrombosis) Z86.718 and Hyperlipidemia E78.5 [place] [address] [place] [address] Dec, History of DVT (deep vein thrombosis) Z86.718 ; Impacted cerumen of right ear H61.21 and Hyperlipidemia E78.5 [place] [address] [place] [address] [place] [address] Dec, DVT (deep venous thrombosis) I82.409 [place] [address] [place] [address] [place] [address] Dec, DVT (deep venous thrombosis) I82.409 [place] [address] [address] Oct, DVT (deep venous thrombosis) I82.409 [place] [address] [place] [address] Oct, DVT (deep venous thrombosis) I82.409 [place] [address] [place] [address] Oct, [place] [address] [place] [address] [place] [address] Oct, History of DVT (deep vein thrombosis) Z86.718 [place] [address] [place] [address] [place] [address] Oct, DVT (deep venous thrombosis) I82.409 [place] [address] [place] [address] Oct, History of DVT (deep vein thrombosis) Z86.718 [place] [address] [place] [address] Oct, History of DVT (deep vein thrombosis) Z86.718 IMMUNIZATIONS No Known Immunizations SOCIAL HISTORY Never Assessed REASON FOR VISIT Fell today from ladder, unwitnessed, acute pain to right side with RUE abrasions . MAURICE Wagner, 7MG of coumadin today PLAN OF CARE Activity Details Follow Up prn Reason: VITAL SIGNS Height 73 in 2018-06-30 Weight 240 lbs 2018-06-30 Temperature 97.4 degrees Fahrenheit 2018-06-30 Heart Rate 78 bpm 2018-06-30 Respiratory Rate 20 2018-06-30 BMI 31.66 kg/m2 2018-06-30 Blood pressure systolic 128 mmHg 2018-06-30 Blood pressure diastolic 82 mmHg 2018-06-30 MEDICATIONS Medication Instructions Dosage Frequency Start Date End Date Duration Status Warfarin Sodium 3 TAKE ONE TABLET BY MOUTH DAILY ON SATURDAY, SATURDAY, SATURDAY, AND SATURDAY 52 Active Pravachol 40 MG Orally Once a dayPM 1 tablet December, Active Hydrocodone-Acetaminophen 7.5-325 MG Orally every 4 hrs 1 tablet as needed 4h 29 Jun, 2018 Active Warfarin Sodium 5 Orally Once a day As directed 24h Active Warfarin Sodium 5 MG TAKE ONE TABLET BY MOUTH DAILY ON SAT AND SATURDAY Active Voltaren 1 % Transdermal as needed Active Clobetasol Propionate 0.05 % Externally Twice a day 1 application to affected area 12h Active Tylenol 325 MG Orally every 6 hrs 2 capsules as needed 6h Active Warfarin Sodium 3 MG Orally, take with the 4 mg to equal 7mg Saturday and Saturday 1 tablet Active Metrogel .75 Externally Once a day 1 application to affected area 24h Active Pravachol 40 Orally Once a dayPM 1 tablet 60 Active Warfarin Sodium 4 TAKE 1 TABLET BY MOUTH ALONG WITH 3 MG TABLET ON SATURDAY,SATURDAY, SATURDAY, SATURDAY, AND SATURDAY 42 Active RESULTS Name Result Date Reference Range INR (IN HOUSE) 2018-06-30 INR 2.0 1.10 - 3.30 PREVIOUS INR 2.0 CURRENT COUMADIN DOSE NEW COUMADIN DOSE Lot # [id number] Exp date 12/2018 Xray : Rib Series, Right (IN HOUSE) 2018-06-30 PROCEDURES Procedure Date Ordered Result Body Site X-RAY EXAM OF RIBS Jun 30, 2018 PROTHROMBIN TIME Jun 30, 2018 [facility] VISIT ESTABLISHED PATIENT Jun 30, 2018 INSTRUCTIONS MEDICATIONS ADMINISTERED No Known Medications [...]
--- OUTSIDE RECORDS SUMMARY | 2019-03-17 19:08 | XMS REPORT ---
Author Author CHARLENE GARCIA [facility] Address [address] [place] [address] Care Team Providers Care Archives Technician Name Role Phone CHARLENE GARCIA Unavailable PROBLEMS Type Condition ICD9-CM Code KCQ51-EP Code Onset Dates Condition Status SNOMED Code Problem DVT (deep venous thrombosis) I82.409 Active 596163035 Problem Bronchitis J40 Active 27509347 Problem Pure hypercholesterolemia E78.00 Active 766811073 Problem History of DVT (deep vein thrombosis) Z86.718 Active 119157327 ALLERGIES No Information ENCOUNTERS Encounter Location Date Diagnosis [place] [id number] [address] May, DVT (deep venous thrombosis) I82.409 [place] [address] [address] Apr, DVT (deep venous thrombosis) I82.409 [place] [address] [address] Apr, Personal history of other venous thrombosis and embolism Z86.718 [place] [address] [address] Jan, History of DVT (deep vein thrombosis) Z86.718 [place] [address] [address] December, Medicare annual wellness visit, initial Z00.00 ; Pure hypercholesterolemia E78.00 ; History of DVT (deep vein thrombosis) Z86.718 and Encounter for immunization Z23 [place] [address] [address] December, History of DVT (deep vein thrombosis) Z86.718 [place] [address] [place] [id number] [place] [address] Oct, History of DVT (deep vein thrombosis) Z86.718 [place] [address] [place] [id number] [place] [address] Oct, History of DVT (deep vein thrombosis) Z86.718 [place] [address] [place] [id number] [place] [address] Sep, [place] [address] [address] Sep, Pure hypercholesterolemia E78.00 and History of DVT (deep vein thrombosis) Z86.718 [place] [address] [address] Sep, Pure hypercholesterolemia E78.00 [place] [address] [address] Aug, History of DVT (deep vein thrombosis) Z86.718 [place] [address] [place] [id number] [place] [address] Aug, Encounter for immunization Z23 [place] [address] [address] Jul, History of DVT (deep vein thrombosis) Z86.718 [place] [address] [place] [id number] [place] [address] Jun, History of DVT (deep vein thrombosis) Z86.718 and Bronchitis J40 [place] [address] [place] [id number] [place] [address] Jun, Personal history of other venous thrombosis and embolism Z86.718 and History of DVT (deep vein thrombosis) Z86.718 [place] [address] [place] [id number] [place] [address] Apr, Personal history of other venous thrombosis and embolism Z86.718 and History of DVT (deep vein thrombosis) Z86.718 [place] [address] [place] [address] Mar, History of DVT (deep vein thrombosis) Z86.718 [place] [address] [place] [id number] [place] [address] Mar, Personal history of other venous thrombosis and embolism Z86.718 [place] [address] [place] [id number] [place] [address] Jan, History of DVT (deep vein thrombosis) Z86.718 [place] [address] [place] [id number] [place] [address] Jan, Acute nasopharyngitis J00 [place] [address] [place] [id number] [place] [address] Jan, History of DVT (deep vein thrombosis) Z86.718 and Bronchitis J40 [place] [address] [place] [id number] [place] [address] Jan, [place] [address] [place] [id number] [place] [address] Jan, History of DVT (deep vein thrombosis) Z86.718 [place] [address] [place] [address] Jan, Personal history of other venous thrombosis and embolism Z86.718 and History of DVT (deep vein thrombosis) Z86.718 [place] [address] [place] [address] Jan, Personal history of other venous thrombosis and embolism Z86.718 and History of DVT (deep vein thrombosis) Z86.718 [place] [address] [place] [id number] [place] [address] Jan, History of DVT (deep vein thrombosis) Z86.718 [place] [address] [place] [address] December, History of DVT (deep vein thrombosis) Z86.718 [place] [address] [place] [id number] [place] [address] December, History of DVT (deep vein thrombosis) Z86.718 [place] [address] [place] [id number] Dec, History of DVT (deep vein thrombosis) Z86.718 [place] [address] [address] Oct, History of DVT (deep vein thrombosis) Z86.718 [place] [address] [address] Oct, History of DVT (deep vein thrombosis) Z86.718 ; Mixed hyperlipidemia E78.2 ; Impacted cerumen of right ear H61.21 ; Encounter for immunization Z23 and Hyperlipidemia E78.5 [place] [address] [address] Sep, History of DVT (deep vein thrombosis) Z86.718 ; Mixed hyperlipidemia E78.2 ; Impacted cerumen of right ear H61.21 ; Encounter for immunization Z23 and Hyperlipidemia E78.5 [place] [address] [address] Aug, History of DVT (deep vein thrombosis) Z86.718 and Acute nasopharyngitis J00 [place] [address] [address] Aug, Bronchitis J40 and History of DVT (deep vein thrombosis) Z86.718 [place] [address] [address] Aug, History of DVT (deep vein thrombosis) Z86.718 and Pure hypercholesterolemia E78.00 [place] [address] [address] Aug, Mixed hyperlipidemia E78.2 and History of DVT (deep vein thrombosis) Z86.718 [facility] [address] [place] [address] Aug, Mixed hyperlipidemia E78.2 [place] [address] [place] [id number] [place] [address] Jul, Encounter for immunization Z23 [facility] [address] [place] [id number] [place] [address] Jul, History of DVT (deep vein thrombosis) Z86.718 [place] [address] [place] [id number] [place] [address] Jul, History of DVT (deep vein thrombosis) Z86.718 and Encounter for immunization Z23 [place] [address] [place] [id number] [place] [address] May, [place] [address] [place] [id number] [place] [address] May, History of DVT (deep vein thrombosis) Z86.718 [place] [address] [place] [id number] [place] [address] Apr, History of DVT (deep vein thrombosis) Z86.718 [place] [address] [place] [id number] [place] [address] Mar, History of DVT (deep vein thrombosis) Z86.718 [place] [address] [place] [id number] [place] [address] Jan, History of DVT (deep vein thrombosis) Z86.718 [facility] [address] [place] [address] December, [facility] [address] [place] [id number] [place] [address] December, History of DVT (deep vein thrombosis) Z86.718 and Hyperlipidemia E78.5 [facility] [address] [place] [id number] [place] [address] Dec, History of DVT (deep vein thrombosis) Z86.718 ; Impacted cerumen of right ear H61.21 and Hyperlipidemia E78.5 [place] [address] [place] [id number] [place] [address] Dec, DVT (deep venous thrombosis) I82.409 [place] [address] [place] [id number] [place] [address] Dec, DVT (deep venous thrombosis) I82.409 [place] [address] [place] [id number] [place] [address] Oct, DVT (deep venous thrombosis) I82.409 [place] [address] [address] Oct, DVT (deep venous thrombosis) I82.409 [place] [address] [place] [id number] [place] [address] Oct, [place] [address] [place] [id number] [place] [address] Oct, History of DVT (deep vein thrombosis) Z86.718 [place] [address] [place] [id number] [place] [address] Oct, DVT (deep venous thrombosis) I82.409 [place] [address] [place] [id number] [place] [address] Oct, History of DVT (deep vein thrombosis) Z86.718 [place] [address] [place] [id number] [place] [address] Oct, History of DVT (deep vein thrombosis) Z86.718 IMMUNIZATIONS No Known Immunizations SOCIAL HISTORY Never Assessed REASON FOR VISIT Lab (walk-in) PLAN OF CARE VITAL SIGNS MEDICATIONS Medication Instructions Dosage Frequency Start Date End Date Duration Status Warfarin Sodium 3 TAKE ONE TABLET BY MOUTH DAILY ON SATURDAY, SATURDAY, SATURDAY, AND SATURDAY 52 Active Pravachol 40 Orally Once a dayPM 1 tablet 60 Active Voltaren 1 % Transdermal as needed Active Promethazine-Codeine 6.25-10 MG/5ML Orally every 4 hrs, prn cough 1-2 tsp Aug, Not-Taking Tylenol 325 MG Orally every 6 hrs 2 capsules as needed 6h Active Pravachol 40 MG Orally Once a dayPM 1 tablet December, Active Warfarin Sodium 5 TAKE ONE TABLET BY MOUTH DAILY ON SAT AND SATURDAY 70 Active Clobetasol Propionate 0.05 % Externally Twice a day 1 application to affected area 12h Active Warfarin Sodium 3 MG Orally, take with the 4 mg to equal 7mg Saturday and Saturday 1 tablet Active Warfarin Sodium 4 TAKE 1 TABLET BY MOUTH ALONG WITH 3 MG TABLET ON SATURDAY,SATURDAY, SATURDAY, SATURDAY, AND SATURDAY 42 Active Metrogel .75 Externally Once a day 1 application to affected area 24h Active Warfarin Sodium 5 mg Orally Saturday, Saturday, , Saturday 1 tablet Active RESULTS Name Result Date Reference Range INR (IN HOUSE) 2018-05-09 INR 2.6 1.10 - 3.30 PREVIOUS INR 2.0 CURRENT COUMADIN DOSE 5mg 4 days, 7mg 3 days NEW COUMADIN DOSE Lot # [id number] Exp date 12/2018 PROCEDURES Procedure Date Ordered Result Body Site PROTHROMBIN TIME May 09, 2018 INSTRUCTIONS MEDICATIONS ADMINISTERED No Known Medications [...]
--- OUTSIDE RECORDS SUMMARY | 2019-03-17 19:08 | XMS REPORT ---
Author Author CHARLENE GARCIA [facility] Address [address] [place] [address] Care Team Providers Care Washing Machine Installer Name Role Phone CHARLENE GARCIA Unavailable PROBLEMS Type Condition ICD9-CM Code BDL73-QN Code Onset Dates Condition Status SNOMED Code Problem DVT (deep venous thrombosis) I82.409 Active 128498256 Problem Bronchitis J40 Active 51154543 Problem Pure hypercholesterolemia E78.00 Active 089258439 Problem History of DVT (deep vein thrombosis) Z86.718 Active 346793015 ALLERGIES No Information ENCOUNTERS Encounter Location Date Diagnosis [place] [address] [address] May, DVT (deep venous thrombosis) I82.409 [place] [address] [address] Apr, DVT (deep venous thrombosis) I82.409 [place] [address] [address] Apr, Personal history of other venous thrombosis and embolism Z86.718 [place] [address] [address] Jan, History of DVT (deep vein thrombosis) Z86.718 [place] [address] [address] December, Medicare annual wellness visit, initial Z00.00 ; Pure hypercholesterolemia E78.00 ; History of DVT (deep vein thrombosis) Z86.718 and Encounter for immunization Z23 [place] [address] [address] December, History of DVT (deep vein thrombosis) Z86.718 [place] [address] [place] [id number] [place] [address] Oct, History of DVT (deep vein thrombosis) Z86.718 [place] [address] [place] [id number] [place] [address] Oct, History of DVT (deep vein thrombosis) Z86.718 [place] [address] [place] [id number] [place] [address] Sep, [place] [address] [address] Sep, Pure hypercholesterolemia E78.00 and History of DVT (deep vein thrombosis) Z86.718 [place] [address] [address] Sep, Pure hypercholesterolemia E78.00 [place] [address] [address] Aug, History of DVT (deep vein thrombosis) Z86.718 [place] [address] [place] [id number] [place] [address] Aug, Encounter for immunization Z23 [place] [address] [address] Jul, History of DVT (deep vein thrombosis) Z86.718 [place] [address] [place] [id number] [place] [address] Jun, History of DVT (deep vein thrombosis) Z86.718 and Bronchitis J40 [place] [address] [place] [id number] [place] [address] Jun, Personal history of other venous thrombosis and embolism Z86.718 and History of DVT (deep vein thrombosis) Z86.718 [place] [address] [place] [id number] [place] [address] Apr, Personal history of other venous thrombosis and embolism Z86.718 and History of DVT (deep vein thrombosis) Z86.718 [place] [address] [place] [address] Mar, History of DVT (deep vein thrombosis) Z86.718 [place] [address] [place] [id number] [place] [address] Mar, Personal history of other venous thrombosis and embolism Z86.718 [place] [address] [place] [id number] [place] [address] Jan, History of DVT (deep vein thrombosis) Z86.718 [place] [address] [place] [id number] [place] [address] Jan, Acute nasopharyngitis J00 [place] [address] [place] [id number] [place] [address] Jan, History of DVT (deep vein thrombosis) Z86.718 and Bronchitis J40 [place] [address] [place] [id number] [place] [address] Jan, [place] [address] [place] [id number] [place] [address] Jan, History of DVT (deep vein thrombosis) Z86.718 [place] [address] [place] [address] Jan, Personal history of other venous thrombosis and embolism Z86.718 and History of DVT (deep vein thrombosis) Z86.718 [place] [address] [place] [address] Jan, Personal history of other venous thrombosis and embolism Z86.718 and History of DVT (deep vein thrombosis) Z86.718 [place] [address] [place] [id number] [place] [address] Jan, History of DVT (deep vein thrombosis) Z86.718 [place] [address] [place] [address] December, History of DVT (deep vein thrombosis) Z86.718 [place] [address] [place] [id number] [place] [address] December, History of DVT (deep vein thrombosis) Z86.718 [place] [address] [place] [phone] Dec, History of DVT (deep vein thrombosis) Z86.718 [place] [address] [address] Oct, History of DVT (deep vein thrombosis) Z86.718 [place] [address] [address] Oct, History of DVT (deep vein thrombosis) Z86.718 ; Mixed hyperlipidemia E78.2 ; Impacted cerumen of right ear H61.21 ; Encounter for immunization Z23 and Hyperlipidemia E78.5 [place] [address] [address] Sep, History of DVT (deep vein thrombosis) Z86.718 ; Mixed hyperlipidemia E78.2 ; Impacted cerumen of right ear H61.21 ; Encounter for immunization Z23 and Hyperlipidemia E78.5 [place] [address] [address] Aug, History of DVT (deep vein thrombosis) Z86.718 and Acute nasopharyngitis J00 [place] [address] [address] Aug, Bronchitis J40 and History of DVT (deep vein thrombosis) Z86.718 [place] [address] [address] Aug, History of DVT (deep vein thrombosis) Z86.718 and Pure hypercholesterolemia E78.00 [place] [address] [address] Aug, Mixed hyperlipidemia E78.2 and History of DVT (deep vein thrombosis) Z86.718 [facility] [address] [place] [address] Aug, Mixed hyperlipidemia E78.2 [place] [address] [place] [id number] [place] [address] Jul, Encounter for immunization Z23 [facility] [address] [place] [id number] [place] [address] Jul, History of DVT (deep vein thrombosis) Z86.718 [place] [address] [place] [id number] [place] [address] Jul, History of DVT (deep vein thrombosis) Z86.718 and Encounter for immunization Z23 [place] [address] [place] [id number] [place] [address] May, [place] [address] [place] [id number] [place] [address] May, History of DVT (deep vein thrombosis) Z86.718 [place] [address] [place] [id number] [place] [address] Apr, History of DVT (deep vein thrombosis) Z86.718 [place] [address] [place] [id number] [place] [address] Mar, History of DVT (deep vein thrombosis) Z86.718 [place] [address] [place] [id number] [place] [address] Jan, History of DVT (deep vein thrombosis) Z86.718 [facility] [address] [place] [address] December, [facility] [address] [place] [id number] [place] [address] December, History of DVT (deep vein thrombosis) Z86.718 and Hyperlipidemia E78.5 [facility] [address] [place] [id number] [place] [address] Dec, History of DVT (deep vein thrombosis) Z86.718 ; Impacted cerumen of right ear H61.21 and Hyperlipidemia E78.5 [place] [address] [place] [id number] [place] [address] Dec, DVT (deep venous thrombosis) I82.409 [place] [address] [place] [id number] [place] [address] Dec, DVT (deep venous thrombosis) I82.409 [place] [address] [place] [id number] [place] [address] Oct, DVT (deep venous thrombosis) I82.409 [place] [address] [address] Oct, DVT (deep venous thrombosis) I82.409 [place] [address] [place] [id number] [place] [address] Oct, [place] [address] [place] [id number] [place] [address] Oct, History of DVT (deep vein thrombosis) Z86.718 [place] [address] [place] [id number] [place] [address] Oct, DVT (deep venous thrombosis) I82.409 [place] [address] [place] [id number] [place] [address] Oct, History of DVT (deep vein thrombosis) Z86.718 [place] [address] [place] [id number] [place] [address] Oct, History of DVT (deep vein thrombosis) Z86.718 IMMUNIZATIONS No Known Immunizations SOCIAL HISTORY Never Assessed REASON FOR VISIT INR orders PLAN OF CARE VITAL SIGNS MEDICATIONS Unknown [...]
--- OUTSIDE RECORDS SUMMARY | 2019-03-17 19:08 | XMS REPORT ---
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 Role Phone CHARLENE GARCIA Unavailable PROBLEMS Type Condition ICD9-CM Code MOG21-TO Code Onset Dates Condition Status SNOMED Code Problem DVT (deep venous thrombosis) I82.409 Active 451368916 Problem Bronchitis J40 Active 41747904 Problem Pure hypercholesterolemia E78.00 Active 334667922 Problem History of DVT (deep vein thrombosis) Z86.718 Active 160216108 ALLERGIES No Information ENCOUNTERS Encounter Location Date Diagnosis [place] [address] [address] May, DVT (deep venous thrombosis) I82.409 [place] [address] [address] Apr, DVT (deep venous thrombosis) I82.409 [place] [address] [address] Apr, Personal history of other venous thrombosis and embolism Z86.718 [place] [address] [address] Jan, History of DVT (deep vein thrombosis) Z86.718 [place] [address] [address] December, Medicare annual wellness visit, initial Z00.00 ; Pure hypercholesterolemia E78.00 ; History of DVT (deep vein thrombosis) Z86.718 and Encounter for immunization Z23 [place] [address] [address] December, History of DVT (deep vein thrombosis) Z86.718 [place] [address] [place] [id number] [place] [address] Oct, History of DVT (deep vein thrombosis) Z86.718 [place] [address] [place] [id number] [place] [address] Oct, History of DVT (deep vein thrombosis) Z86.718 [place] [address] [place] [id number] [place] [address] Sep, [place] [address] [address] Sep, Pure hypercholesterolemia E78.00 and History of DVT (deep vein thrombosis) Z86.718 [place] [address] [address] Sep, Pure hypercholesterolemia E78.00 [place] [address] [address] Aug, History of DVT (deep vein thrombosis) Z86.718 [place] [address] [place] [id number] [place] [address] Aug, Encounter for immunization Z23 [place] [address] [address] Jul, History of DVT (deep vein thrombosis) Z86.718 [place] [address] [place] [id number] [place] [address] Jun, History of DVT (deep vein thrombosis) Z86.718 and Bronchitis J40 [place] [address] [place] [id number] [place] [address] Jun, Personal history of other venous thrombosis and embolism Z86.718 and History of DVT (deep vein thrombosis) Z86.718 [place] [address] [place] [id number] [place] [address] Apr, Personal history of other venous thrombosis and embolism Z86.718 and History of DVT (deep vein thrombosis) Z86.718 [place] [address] [place] [address] Mar, History of DVT (deep vein thrombosis) Z86.718 [place] [place] [id number] [place] [address] Mar, Personal history of other venous thrombosis and embolism Z86.718 [place] [address] [place] [id number] [place] [address] Jan, History of DVT (deep vein thrombosis) Z86.718 [place] [address] [place] [id number] [place] [address] Jan, Acute nasopharyngitis J00 [place] [address] [place] [id number] [place] [address] Jan, History of DVT (deep vein thrombosis) Z86.718 and Bronchitis J40 [place] [address] [place] [id number] [place] [address] Jan, [place] [address] [place] [id number] [place] [address] Jan, History of DVT (deep vein thrombosis) Z86.718 [place] [address] [place] [address] Jan, Personal history of other venous thrombosis and embolism Z86.718 and History of DVT (deep vein thrombosis) Z86.718 [place] [address] [place] [address] Jan, Personal history of other venous thrombosis and embolism Z86.718 and History of DVT (deep vein thrombosis) Z86.718 [place] [address] [place] [id number] [place] [address] Jan, History of DVT (deep vein thrombosis) Z86.718 [place] [address] [place] [address] December, History of DVT (deep vein thrombosis) Z86.718 [place] [address] [place] [id number] [place] [address] December, History of DVT (deep vein thrombosis) Z86.718 [place] [address] [place] [id number] Dec, History of DVT (deep vein thrombosis) Z86.718 [place] [address] [address] Oct, History of DVT (deep vein thrombosis) Z86.718 [place] [address] [address] Oct, History of DVT (deep vein thrombosis) Z86.718 ; Mixed hyperlipidemia E78.2 ; Impacted cerumen of right ear H61.21 ; Encounter for immunization Z23 and Hyperlipidemia E78.5 [place] [address] [address] Sep, History of DVT (deep vein thrombosis) Z86.718 ; Mixed hyperlipidemia E78.2 ; Impacted cerumen of right ear H61.21 ; Encounter for immunization Z23 and Hyperlipidemia E78.5 [place] [address] [address] Aug, History of DVT (deep vein thrombosis) Z86.718 and Acute nasopharyngitis J00 [place] [address] [address] Aug, Bronchitis J40 and History of DVT (deep vein thrombosis) Z86.718 [place] [address] [address] Aug, History of DVT (deep vein thrombosis) Z86.718 and Pure hypercholesterolemia E78.00 [place] [address] [address] Aug, Mixed hyperlipidemia E78.2 and History of DVT (deep vein thrombosis) Z86.718 [facility] [place] [address] [place] [address] Aug, Mixed hyperlipidemia E78.2 [place] [address] [place] [id number] [place] [address] Jul, Encounter for immunization Z23 [facility] [place] [address] [place] [id number] [place] [address] Jul, History of DVT (deep vein thrombosis) Z86.718 [place] [address] [place] [id number] [place] [address] Jul, History of DVT (deep vein thrombosis) Z86.718 and Encounter for immunization Z23 [place] [address] [place] [id number] [place] [address] May, [place] [address] [place] [id number] [place] [address] May, History of DVT (deep vein thrombosis) Z86.718 [place] [address] [place] [id number] [place] [address] Apr, History of DVT (deep vein thrombosis) Z86.718 [place] [address] [place] [id number] [place] [address] Mar, History of DVT (deep vein thrombosis) Z86.718 [place] [address] [place] [id number] [place] [address] Jan, History of DVT (deep vein thrombosis) Z86.718 [facility] [place] [address] [place] [address] December, [facility] [place] [address] [place] [id number] [place] [address] December, History of DVT (deep vein thrombosis) Z86.718 and Hyperlipidemia E78.5 [facility] [place] [address] [place] [id number] [place] [address] Dec, History of DVT (deep vein thrombosis) Z86.718 ; Impacted cerumen of right ear H61.21 and Hyperlipidemia E78.5 [place] [address] [place] [id number] [place] [address] Dec, DVT (deep venous thrombosis) I82.409 [place] [address] [place] [id number] [place] [address] Dec, DVT (deep venous thrombosis) I82.409 [place] [address] [place] [id number] [place] [address] Oct, DVT (deep venous thrombosis) I82.409 [place] [address] [address] Oct, DVT (deep venous thrombosis) I82.409 [place] [address] [place] [id number] [place] [address] Oct, [place] [address] [place] [id number] [place] [address] Oct, History of DVT (deep vein thrombosis) Z86.718 [place] [address] [place] [id number] [place] [address] Oct, DVT (deep venous thrombosis) I82.409 [place] [address] [place] [id number] [place] [address] Oct, History of DVT (deep vein thrombosis) Z86.718 [place] [address] [place] [id number] [place] [address] Oct, History of DVT (deep vein thrombosis) Z86.718 IMMUNIZATIONS No Known Immunizations SOCIAL HISTORY Never Assessed REASON FOR VISIT Lab (walk-in) PLAN OF CARE VITAL SIGNS MEDICATIONS Unknown Medications RESULTS No Results PROCEDURES Procedure Date Ordered Result Body Site PROTHROMBIN TIME Apr 10, 2018 INSTRUCTIONS MEDICATIONS ADMINISTERED No Known Medications [...]
--- OUTSIDE RECORDS SUMMARY | 2019-03-17 19:09 | XMS REPORT ---
Author Author CHARLENE GARCIA [facility] Address [address] [place] [address] Care Team Providers Care Substation Wireman Name Role Phone CHARLENE GARCIA Unavailable PROBLEMS Type Condition ICD9-CM Code IKE04-YO Code Onset Dates Condition Status SNOMED Code Problem Bronchitis J40 Active 95808921 Problem Pure hypercholesterolemia E78.00 Active 619256814 Problem History of DVT (deep vein thrombosis) Z86.718 Active 457578349 ALLERGIES No Information ENCOUNTERS Encounter Location Date Diagnosis [place] [address] [address] Jan, History of DVT (deep vein thrombosis) Z86.718 [place] [address] [address] December, Medicare annual wellness visit, initial Z00.00 ; Pure hypercholesterolemia E78.00 ; History of DVT (deep vein thrombosis) Z86.718 and Encounter for immunization Z23 [place] [address] [address] December, History of DVT (deep vein thrombosis) Z86.718 [place] [address] [address] Oct, History of DVT (deep vein thrombosis) Z86.718 [place] [address] [address] Oct, History of DVT (deep vein thrombosis) Z86.718 [place] [address] [address] Sep, [place] [address] [address] Sep, Pure hypercholesterolemia E78.00 and History of DVT (deep vein thrombosis) Z86.718 [place] [address] [place] [id number] [place] [address] Sep, Pure hypercholesterolemia E78.00 [place] [address] [place] [id number] [place] [address] Aug, History of DVT (deep vein thrombosis) Z86.718 [place] [address] [address] Aug, Encounter for immunization Z23 [place] [address] [address] Jul, History of DVT (deep vein thrombosis) Z86.718 [place] [address] [place] [id number] [place] [address] Jun, History of DVT (deep vein thrombosis) Z86.718 and Bronchitis J40 [place] [address] [place] [id number] [place] [address] Jun, Personal history of other venous thrombosis and embolism Z86.718 and History of DVT (deep vein thrombosis) Z86.718 [place] [address] [place] [id number] [place] [address] Apr, Personal history of other venous thrombosis and embolism Z86.718 and History of DVT (deep vein thrombosis) Z86.718 [place] [address] [place] [id number] [place] [address] Mar, History of DVT (deep vein thrombosis) Z86.718 [place] [address] [place] [id number] [place] [address] Mar, Personal history of other venous thrombosis and embolism Z86.718 [place] [address] [place] [id number] [place] [address] Jan, History of DVT (deep vein thrombosis) Z86.718 [place] [address] [place] [id number] [place] [address] Jan, Acute nasopharyngitis J00 [place] [address] [address] Jan, History of DVT (deep vein thrombosis) Z86.718 and Bronchitis J40 [place] [address] [address] Jan, [place] [address] [address] Jan, History of DVT (deep vein thrombosis) Z86.718 [place] [address] [address] Jan, Personal history of other venous thrombosis and embolism Z86.718 and History of DVT (deep vein thrombosis) Z86.718 [place] [address] [address] Jan, Personal history of other venous thrombosis and embolism Z86.718 and History of DVT (deep vein thrombosis) Z86.718 [place] [address] [place] [id number] [place] [address] Jan, History of DVT (deep vein thrombosis) Z86.718 [place] [address] [place] [id number] [place] [address] December, History of DVT (deep vein thrombosis) Z86.718 [place] [address] [place] [id number] [place] [address] December, History of DVT (deep vein thrombosis) Z86.718 [place] [address] [address] Dec, History of DVT (deep vein thrombosis) Z86.718 [place] [address] [place] [id number] [place] [address] Oct, History of DVT (deep vein thrombosis) Z86.718 [place] [address] [place] [id number] [place] [address] 21 Oct, 2016 History of DVT (deep vein thrombosis) Z86.718 ; Mixed hyperlipidemia E78.2 ; Impacted cerumen of right ear H61.21 ; Encounter for immunization Z23 and Hyperlipidemia E78.5 [place] [address] [address] 31 Sep, 2016 History of DVT (deep vein thrombosis) Z86.718 ; Mixed hyperlipidemia E78.2 ; Impacted cerumen of right ear H61.21 ; Encounter for immunization Z23 and Hyperlipidemia E78.5 [place] [address] [address] 27 Aug, 2016 History of DVT (deep vein thrombosis) Z86.718 and Acute nasopharyngitis J00 [place] [address] [address] Aug, Bronchitis J40 and History of DVT (deep vein thrombosis) Z86.718 [place] [address] [address] Aug, History of DVT (deep vein thrombosis) Z86.718 and Pure hypercholesterolemia E78.00 [place] [address] [address] Aug, Mixed hyperlipidemia E78.2 and History of DVT (deep vein thrombosis) Z86.718 [place] [address] [address] Aug, Mixed hyperlipidemia E78.2 [place] [address] [address] Jul, Encounter for immunization Z23 [place] [address] [address] Jul, History of DVT (deep vein thrombosis) Z86.718 [place] [address] [address] Jul, History of DVT (deep vein thrombosis) Z86.718 and Encounter for immunization Z23 [place] [address] [place] [id number] [place] [address] May, [facility] [address] [place] [id number] [place] [address] May, History of DVT (deep vein thrombosis) Z86.718 [place] [address] [place] [id number] [place] [address] Apr, History of DVT (deep vein thrombosis) Z86.718 [place] [address] [place] [id number] [place] [address] Mar, History of DVT (deep vein thrombosis) Z86.718 [place] [address] [place] [id number] [place] [address] Jan, History of DVT (deep vein thrombosis) Z86.718 [place] [address] [place] [id number] [place] [address] December, [place] [address] [place] [id number] [place] [address] December, History of DVT (deep vein thrombosis) Z86.718 and Hyperlipidemia E78.5 [place] [address] [place] [id number] [place] [address] Dec, History of DVT (deep vein thrombosis) Z86.718 ; Impacted cerumen of right ear H61.21 and Hyperlipidemia E78.5 [place] [address] [place] [address] Dec, DVT (deep venous thrombosis) I82.409 [place] [address] [place] [id number] [place] [address] Dec, DVT (deep venous thrombosis) I82.409 [place] [address] [place] [id number] [place] [address] Oct, DVT (deep venous thrombosis) I82.409 [facility] [address] [place] [id number] [address] Oct, DVT (deep venous thrombosis) I82.409 [facility] [address] [place] [address] Oct, [place] [address] [place] [address] Oct, History of DVT (deep vein thrombosis) Z86.718 [place] [address] [place] [id number] [address] Oct, DVT (deep venous thrombosis) I82.409 [place] [address] [address] Oct, History of DVT (deep vein thrombosis) Z86.718 [place] [address] [address] Oct, History of DVT (deep vein thrombosis) Z86.718 IMMUNIZATIONS No Known Immunizations SOCIAL HISTORY Never Assessed REASON FOR VISIT Lab (walk-in) PLAN OF CARE VITAL SIGNS MEDICATIONS Unknown Medications RESULTS Name Result Date Reference Range INR (IN HOUSE) 2017-11-20 INR 2.4 1.10 - 3.30 PREVIOUS INR 4.0 CURRENT COUMADIN DOSE 5 mg 5 days, 7 mg 2 days NEW COUMADIN DOSE Lot # [id number] Exp date 07/2018 PROCEDURES Procedure Date Ordered Result Body Site PROTHROMBIN TIME November 20, 2017 INSTRUCTIONS MEDICATIONS ADMINISTERED No Known Medications MEDICAL [...]
--- OUTSIDE RECORDS SUMMARY | 2019-03-17 19:09 | XMS REPORT ---
Author Author CHARLENE GARCIA [facility] Address [address] [place] [address] Care Team Providers Care Concrete Block Layer Name Role Phone CHARLENE GARCIA Unavailable PROBLEMS Type Condition ICD9-CM Code OGG51-UQ Code Onset Dates Condition Status SNOMED Code Problem Bronchitis J40 Active 86788706 Problem Pure hypercholesterolemia E78.00 Active 537011356 Problem History of DVT (deep vein thrombosis) Z86.718 Active 928336189 ALLERGIES No Information ENCOUNTERS Encounter Location Date Diagnosis [place] [address] [address] Jan, History of DVT (deep vein thrombosis) Z86.718 [place] [address] [address] December, Medicare annual wellness visit, initial Z00.00 ; Pure hypercholesterolemia E78.00 ; History of DVT (deep vein thrombosis) Z86.718 and Encounter for immunization Z23 [place] [address] [address] December, History of DVT (deep vein thrombosis) Z86.718 [place] [address] [address] Oct, History of DVT (deep vein thrombosis) Z86.718 [place] [address] [address] Oct, History of DVT (deep vein thrombosis) Z86.718 [place] [address] [address] Sep, [place] [address] [address] Sep, Pure hypercholesterolemia E78.00 and History of DVT (deep vein thrombosis) Z86.718 [place] [address] [place] [id number] [place] [address] Sep, Pure hypercholesterolemia E78.00 [place] [address] [place] [id number] [place] [address] Aug, History of DVT (deep vein thrombosis) Z86.718 [place] [address] [address] Aug, Encounter for immunization Z23 [place] [address] [address] Jul, History of DVT (deep vein thrombosis) Z86.718 [place] [address] [place] [id number] [place] [address] Jun, History of DVT (deep vein thrombosis) Z86.718 and Bronchitis J40 [place] [address] [place] [id number] [place] [address] Jun, Personal history of other venous thrombosis and embolism Z86.718 and History of DVT (deep vein thrombosis) Z86.718 [place] [address] [place] [id number] [place] [address] Apr, Personal history of other venous thrombosis and embolism Z86.718 and History of DVT (deep vein thrombosis) Z86.718 [place] [address] [place] [id number] [place] [address] Mar, History of DVT (deep vein thrombosis) Z86.718 [place] [address] [place] [id number] [place] [address] Mar, Personal history of other venous thrombosis and embolism Z86.718 [place] [address] [place] [id number] [place] [address] Jan, History of DVT (deep vein thrombosis) Z86.718 [place] [address] [place] [id number] [place] [address] Jan, Acute nasopharyngitis J00 [place] [address] [address] Jan, History of DVT (deep vein thrombosis) Z86.718 and Bronchitis J40 [place] [address] [address] Jan, [place] [address] [address] Jan, History of DVT (deep vein thrombosis) Z86.718 [place] [address] [address] Jan, Personal history of other venous thrombosis and embolism Z86.718 and History of DVT (deep vein thrombosis) Z86.718 [place] [address] [address] Jan, Personal history of other venous thrombosis and embolism Z86.718 and History of DVT (deep vein thrombosis) Z86.718 [place] [address] [place] [id number] [place] [address] Jan, History of DVT (deep vein thrombosis) Z86.718 [place] [address] [place] [id number] [place] [address] December, History of DVT (deep vein thrombosis) Z86.718 [place] [address] [place] [id number] [place] [address] December, History of DVT (deep vein thrombosis) Z86.718 [place] [address] [address] Dec, History of DVT (deep vein thrombosis) Z86.718 [place] [address] [place] [id number] [place] [address] Oct, History of DVT (deep vein thrombosis) Z86.718 [place] [address] [place] [id number] [place] [address] 21 Oct, 2016 History of DVT (deep vein thrombosis) Z86.718 ; Mixed hyperlipidemia E78.2 ; Impacted cerumen of right ear H61.21 ; Encounter for immunization Z23 and Hyperlipidemia E78.5 [place] [address] [address] 31 Sep, 2016 History of DVT (deep vein thrombosis) Z86.718 ; Mixed hyperlipidemia E78.2 ; Impacted cerumen of right ear H61.21 ; Encounter for immunization Z23 and Hyperlipidemia E78.5 [place] [address] [address] 27 Aug, 2016 History of DVT (deep vein thrombosis) Z86.718 and Acute nasopharyngitis J00 [place] [address] [address] Aug, Bronchitis J40 and History of DVT (deep vein thrombosis) Z86.718 [place] [address] [address] Aug, History of DVT (deep vein thrombosis) Z86.718 and Pure hypercholesterolemia E78.00 [place] [address] [address] Aug, Mixed hyperlipidemia E78.2 and History of DVT (deep vein thrombosis) Z86.718 [place] [address] [address] Aug, Mixed hyperlipidemia E78.2 [place] [address] [address] Jul, Encounter for immunization Z23 [place] [address] [address] Jul, History of DVT (deep vein thrombosis) Z86.718 [place] [address] [address] Jul, History of DVT (deep vein thrombosis) Z86.718 and Encounter for immunization Z23 [place] [address] [place] [id number] [place] [address] May, [facility] [address] [place] [id number] [place] [address] May, History of DVT (deep vein thrombosis) Z86.718 [place] [address] [place] [id number] [place] [address] Apr, History of DVT (deep vein thrombosis) Z86.718 [place] [address] [place] [id number] [place] [address] Mar, History of DVT (deep vein thrombosis) Z86.718 [place] [address] [place] [id number] [place] [address] Jan, History of DVT (deep vein thrombosis) Z86.718 [place] [address] [place] [id number] [place] [address] December, [place] [address] [place] [id number] [place] [address] December, History of DVT (deep vein thrombosis) Z86.718 and Hyperlipidemia E78.5 [place] [address] [place] [id number] [place] [address] Dec, History of DVT (deep vein thrombosis) Z86.718 ; Impacted cerumen of right ear H61.21 and Hyperlipidemia E78.5 [place] [address] [place] [address] Dec, DVT (deep venous thrombosis) I82.409 [place] [address] [place] [id number] [place] [address] Dec, DVT (deep venous thrombosis) I82.409 [place] [address] [place] [id number] [place] [address] Oct, DVT (deep venous thrombosis) I82.409 [facility] [address] [address] Oct, DVT (deep venous thrombosis) I82.409 [facility] [address] [place] [address] Oct, [place] [address] [place] [address] Oct, History of DVT (deep vein thrombosis) Z86.718 [place] [address] [place] [address] Oct, DVT (deep venous thrombosis) I82.409 [place] [address] [place] [address] Oct, History of DVT (deep vein thrombosis) Z86.718 [place] [address] [place] [address] Oct, History of DVT (deep vein thrombosis) Z86.718 IMMUNIZATIONS No Known Immunizations SOCIAL HISTORY Never Assessed REASON FOR VISIT Lab (walk-in) PLAN OF CARE VITAL SIGNS MEDICATIONS Unknown Medications RESULTS Name Result Date Reference Range INR (IN HOUSE) 2018-01-01 INR 1.9 1.10 - 3.30 PREVIOUS INR 2.4 CURRENT COUMADIN DOSE 5mg 5 days, 7mg 2 days NEW COUMADIN DOSE Lot # [id number] Exp date 10/2018 PROCEDURES Procedure Date Ordered Result Body Site PROTHROMBIN TIME January 01, 2018 INSTRUCTIONS MEDICATIONS ADMINISTERED No Known Medications [...]
--- OUTSIDE RECORDS SUMMARY | 2019-03-17 19:09 | XMS REPORT ---
Author Author CHARLENE GARCIA [facility] Address [address] [place] [address] Care Team Providers Care Spike Machine Feeder Name Role Phone CHARLENE GARCIA Unavailable PROBLEMS Type Condition ICD9-CM Code BOT38-RC Code Onset Dates Condition Status SNOMED Code Problem DVT (deep venous thrombosis) I82.409 Active 701251590 Problem Bronchitis J40 Active 97307518 Problem Pure hypercholesterolemia E78.00 Active 303238459 Problem History of DVT (deep vein thrombosis) Z86.718 Active 521654388 ALLERGIES No Information ENCOUNTERS Encounter Location Date Diagnosis [address] [address] Apr, DVT (deep venous thrombosis) I82.409 [place] [address] [address] Apr, Personal history of other venous thrombosis and embolism Z86.718 [place] [address] [address] Jan, History of DVT (deep vein thrombosis) Z86.718 [place] [address] [address] December, Medicare annual wellness visit, initial Z00.00 ; Pure hypercholesterolemia E78.00 ; History of DVT (deep vein thrombosis) Z86.718 and Encounter for immunization Z23 [place] [address] [address] December, History of DVT (deep vein thrombosis) Z86.718 [place] [address] [address] Oct, History of DVT (deep vein thrombosis) Z86.718 [place] [address] [place] [address] Oct, History of DVT (deep vein thrombosis) Z86.718 [place] [address] [place] [id number] [place] [address] Sep, [place] [address] [place] [id number] [place] [address] Sep, Pure hypercholesterolemia E78.00 and History of DVT (deep vein thrombosis) Z86.718 [place] [address] [address] Sep, Pure hypercholesterolemia E78.00 [place] [address] [address] Aug, History of DVT (deep vein thrombosis) Z86.718 [place] [address] [address] Aug, Encounter for immunization Z23 [place] [address] [address] Jul, History of DVT (deep vein thrombosis) Z86.718 [place] [address] [place] [id number] [place] [address] Jun, History of DVT (deep vein thrombosis) Z86.718 and Bronchitis J40 [place] [address] [place] [id number] [place] [address] Jun, Personal history of other venous thrombosis and embolism Z86.718 and History of DVT (deep vein thrombosis) Z86.718 [place] [address] [place] [id number] [place] [address] Apr, Personal history of other venous thrombosis and embolism Z86.718 and History of DVT (deep vein thrombosis) Z86.718 [place] [address] [place] [id number] [place] [address] Mar, History of DVT (deep vein thrombosis) Z86.718 [place] [address] [address] Mar, Personal history of other venous thrombosis and embolism Z86.718 [place] [address] [place] [id number] [place] [address] Jan, History of DVT (deep vein thrombosis) Z86.718 [place] [address] [place] [id number] [place] [address] Jan, Acute nasopharyngitis J00 [place] [address] [place] [id number] [place] [address] Jan, History of DVT (deep vein thrombosis) Z86.718 and Bronchitis J40 [place] [address] [place] [id number] [place] [address] Jan, [place] [address] [place] [id number] [place] [address] Jan, History of DVT (deep vein thrombosis) Z86.718 [place] [address] [place] [address] Jan, Personal history of other venous thrombosis and embolism Z86.718 and History of DVT (deep vein thrombosis) Z86.718 [place] [address] [place] [address] Jan, Personal history of other venous thrombosis and embolism Z86.718 and History of DVT (deep vein thrombosis) Z86.718 [place] [address] [place] [address] Jan, History of DVT (deep vein thrombosis) Z86.718 [place] [address] [place] [address] December, History of DVT (deep vein thrombosis) Z86.718 [place] [address] [place] [address] December, History of DVT (deep vein thrombosis) Z86.718 [place] [address] [address] Dec, History of DVT (deep vein thrombosis) Z86.718 [place] [address] [address] Oct, History of DVT (deep vein thrombosis) Z86.718 [place] [address] [address] Oct, History of DVT (deep vein thrombosis) Z86.718 ; Mixed hyperlipidemia E78.2 ; Impacted cerumen of right ear H61.21 ; Encounter for immunization Z23 and Hyperlipidemia E78.5 [place] [address] [address] Sep, History of DVT (deep vein thrombosis) Z86.718 ; Mixed hyperlipidemia E78.2 ; Impacted cerumen of right ear H61.21 ; Encounter for immunization Z23 and Hyperlipidemia E78.5 [place] [address] [address] Aug, History of DVT (deep vein thrombosis) Z86.718 and Acute nasopharyngitis J00 [place] [address] [address] Aug, Bronchitis J40 and History of DVT (deep vein thrombosis) Z86.718 [place] [address] [address] Aug, History of DVT (deep vein thrombosis) Z86.718 and Pure hypercholesterolemia E78.00 [place] [address] [address] Aug, Mixed hyperlipidemia E78.2 and History of DVT (deep vein thrombosis) Z86.718 [place] [address] [address] Aug, Mixed hyperlipidemia E78.2 [place] [address] [address] 10 Jul, 2016 Encounter for immunization Z23 [place] [address] [place] [id number] [place] [address] Jul, History of DVT (deep vein thrombosis) Z86.718 [place] [address] [place] [id number] [place] [address] Jul, History of DVT (deep vein thrombosis) Z86.718 and Encounter for immunization Z23 [place] [address] [place] [id number] [place] [address] May, [place] [address] [place] [id number] [place] [address] May, History of DVT (deep vein thrombosis) Z86.718 [place] [address] [place] [id number] [place] [address] Apr, History of DVT (deep vein thrombosis) Z86.718 [place] [address] [place] [id number] [place] [address] Mar, History of DVT (deep vein thrombosis) Z86.718 [place] [address] [place] [id number] [place] [address] Jan, History of DVT (deep vein thrombosis) Z86.718 [place] [address] [place] [address] December, [place] [address] [place] [id number] [place] [address] December, History of DVT (deep vein thrombosis) Z86.718 and Hyperlipidemia E78.5 [place] [address] [place] [id number] [place] [address] Dec, History of DVT (deep vein thrombosis) Z86.718 ; Impacted cerumen of right ear H61.21 and Hyperlipidemia E78.5 [place] [address] [place] [id number] [place] [address] Dec, DVT (deep venous thrombosis) I82.409 [place] [address] [place] [id number] [place] [address] Dec, DVT (deep venous thrombosis) I82.409 [place] [address] [place] [id number] [place] [address] Oct, DVT (deep venous thrombosis) I82.409 [place] [address] [place] [id number] [place] [address] Oct, DVT (deep venous thrombosis) I82.409 [place] [address] [address] Oct, [place] [address] [place] [id number] [place] [address] Oct, History of DVT (deep vein thrombosis) Z86.718 [place] [address] [place] [id number] [place] [address] Oct, DVT (deep venous thrombosis) I82.409 [place] [address] [place] [id number] [place] [address] Oct, History of DVT (deep vein thrombosis) Z86.718 [place] [address] [place] [id number] [place] [address] Oct, History of DVT (deep vein thrombosis) Z86.718 IMMUNIZATIONS No Known Immunizations SOCIAL HISTORY Never Assessed REASON FOR VISIT Lab (walk-in) PLAN OF CARE VITAL SIGNS MEDICATIONS Unknown Medications RESULTS Name Result Date Reference Range INR (IN HOUSE) 2018-02-24 INR 2.3 1.10 - 3.30 PREVIOUS INR 1.9 CURRENT COUMADIN DOSE [id number] NEW COUMADIN DOSE Lot # [id number] Exp date 10/2018 PROCEDURES Procedure Date Ordered Result Body Site PROTHROMBIN TIME February 24, 2018 INSTRUCTIONS MEDICATIONS ADMINISTERED No Known Medications [...]
--- OUTSIDE RECORDS SUMMARY | 2019-03-17 19:09 | XMS REPORT ---
Author Author CHARLENE GARCIA [facility] Address [address] [place] [address] Care Team Providers Care [employer] Designer Name Role Phone CHARLENE GARCIA Unavailable PROBLEMS Type Condition ICD9-CM Code KHN48-GT Code Onset Dates Condition Status SNOMED Code Problem DVT (deep venous thrombosis) I82.409 Active 566253939 Problem Bronchitis J40 Active 93821857 Problem Pure hypercholesterolemia E78.00 Active 829581514 Problem History of DVT (deep vein thrombosis) Z86.718 Active 859699836 ALLERGIES No Known Allergies ENCOUNTERS Encounter Location Date Diagnosis [address] [address] Apr, DVT (deep venous thrombosis) I82.409 [place] [address] [address] Apr, Personal history of other venous thrombosis and embolism Z86.718 [place] [address] [address] Jan, History of DVT (deep vein thrombosis) Z86.718 [place] [address] [address] December, Medicare annual wellness visit, initial Z00.00 ; Pure hypercholesterolemia E78.00 ; History of DVT (deep vein thrombosis) Z86.718 and Encounter for immunization Z23 [place] [address] [address] December, History of DVT (deep vein thrombosis) Z86.718 [place] [address] [address] Oct, History of DVT (deep vein thrombosis) Z86.718 [place] [address] [place] [address] Oct, History of DVT (deep vein thrombosis) Z86.718 [place] [address] [place] [id number] [place] [address] Sep, [place] [address] [place] [id number] [place] [address] Sep, Pure hypercholesterolemia E78.00 and History of DVT (deep vein thrombosis) Z86.718 [place] [address] [place] [id number] [place] [address] Sep, Pure hypercholesterolemia E78.00 [place] [address] [address] Aug, History of DVT (deep vein thrombosis) Z86.718 [place] [address] [address] Aug, Encounter for immunization Z23 [place] [address] [place] [id number] [place] [address] Jul, History of DVT (deep vein thrombosis) Z86.718 [place] [address] [place] [id number] [place] [address] Jun, History of DVT (deep vein thrombosis) Z86.718 and Bronchitis J40 [place] [address] [place] [id number] [place] [address] Jun, Personal history of other venous thrombosis and embolism Z86.718 and History of DVT (deep vein thrombosis) Z86.718 [place] [address] [place] [id number] [place] [address] Apr, Personal history of other venous thrombosis and embolism Z86.718 and History of DVT (deep vein thrombosis) Z86.718 [place] [address] [place] [address] Mar, History of DVT (deep vein thrombosis) Z86.718 [place] [address] [place] [address] Mar, Personal history of other venous thrombosis and embolism Z86.718 [place] [address] [place] [id number] [place] [address] Jan, History of DVT (deep vein thrombosis) Z86.718 [place] [address] [place] [id number] [place] [address] Jan, Acute nasopharyngitis J00 [place] [address] [place] [id number] [place] [address] Jan, History of DVT (deep vein thrombosis) Z86.718 and Bronchitis J40 [place] [address] [place] [id number] [place] [address] Jan, [place] [address] [place] [id number] [place] [address] Jan, History of DVT (deep vein thrombosis) Z86.718 [place] [address] [place] [address] Jan, Personal history of other venous thrombosis and embolism Z86.718 and History of DVT (deep vein thrombosis) Z86.718 [place] [address] [place] [address] Jan, Personal history of other venous thrombosis and embolism Z86.718 and History of DVT (deep vein thrombosis) Z86.718 [place] [address] [place] [address] Jan, History of DVT (deep vein thrombosis) Z86.718 [place] [address] [place] [id number] [place] [address] December, History of DVT (deep vein thrombosis) Z86.718 [place] [address] [place] [address] December, History of DVT (deep vein thrombosis) Z86.718 [place] [address] [place] [id number] [place] [address] Dec, History of DVT (deep vein thrombosis) Z86.718 [place] [address] [place] [id number] [place] [address] Oct, History of DVT (deep vein thrombosis) Z86.718 [place] [address] [address] Oct, History of DVT (deep vein thrombosis) Z86.718 ; Mixed hyperlipidemia E78.2 ; Impacted cerumen of right ear H61.21 ; Encounter for immunization Z23 and Hyperlipidemia E78.5 [place] [address] [address] Sep, History of DVT (deep vein thrombosis) Z86.718 ; Mixed hyperlipidemia E78.2 ; Impacted cerumen of right ear H61.21 ; Encounter for immunization Z23 and Hyperlipidemia E78.5 [place] [address] [address] Aug, History of DVT (deep vein thrombosis) Z86.718 and Acute nasopharyngitis J00 [place] [address] [address] Aug, Bronchitis J40 and History of DVT (deep vein thrombosis) Z86.718 [place] [address] [address] Aug, History of DVT (deep vein thrombosis) Z86.718 and Pure hypercholesterolemia E78.00 [place] [address] [address] Aug, Mixed hyperlipidemia E78.2 and History of DVT (deep vein thrombosis) Z86.718 [place] [address] [address] Aug, Mixed hyperlipidemia E78.2 [place] [address] [address] 10 Jul, 2016 Encounter for immunization Z23 [place] [address] [place] [id number] [place] [address] Jul, History of DVT (deep vein thrombosis) Z86.718 [place] [address] [place] [id number] [place] [address] Jul, History of DVT (deep vein thrombosis) Z86.718 and Encounter for immunization Z23 [place] [address] [place] [id number] [place] [address] May, [place] [address] [place] [id number] [place] [address] May, History of DVT (deep vein thrombosis) Z86.718 [place] [address] [place] [id number] [place] [address] Apr, History of DVT (deep vein thrombosis) Z86.718 [place] [address] [place] [id number] [place] [address] Mar, History of DVT (deep vein thrombosis) Z86.718 [place] [address] [place] [id number] [place] [address] Jan, History of DVT (deep vein thrombosis) Z86.718 [place] [address] [place] [id number] [place] [address] December, [place] [address] [place] [address] December, History of DVT (deep vein thrombosis) Z86.718 and Hyperlipidemia E78.5 [place] [address] [place] [address] Dec, History of DVT (deep vein thrombosis) Z86.718 ; Impacted cerumen of right ear H61.21 and Hyperlipidemia E78.5 [place] [address] [place] [id number] [address] Dec, DVT (deep venous thrombosis) I82.409 [place] [address] [place] [id number] [place] [address] Dec, DVT (deep venous thrombosis) I82.409 [place] [address] [place] [id number] [place] [address] Oct, DVT (deep venous thrombosis) I82.409 [place] [address] [place] [id number] [place] [address] Oct, DVT (deep venous thrombosis) I82.409 [place] [address] [place] [id number] [place] [address] Oct, [place] [address] [place] [id number] [place] [address] Oct, History of DVT (deep vein thrombosis) Z86.718 [place] [address] [place] [id number] [place] [address] Oct, DVT (deep venous thrombosis) I82.409 [place] [address] [place] [id number] [place] [address] Oct, History of DVT (deep vein thrombosis) Z86.718 [place] [address] [place] [id number] [place] [address] Oct, History of DVT (deep vein thrombosis) Z86.718 IMMUNIZATIONS Vaccine Route Administration Date Status PCV 13 IM Intramuscular January 23, 2018 Administered SOCIAL HISTORY Never Assessed REASON FOR VISIT Medicare AWV - Initial Visit -MA PLAN OF CARE Activity Details Follow Up 1 Year Reason: VITAL SIGNS Height 73 in 2018-01-23 Weight 244 lbs 2018-01-23 Temperature 98 degrees Fahrenheit 2018-01-23 Heart Rate 69 bpm 2018-01-23 Respiratory Rate 18 2018-01-23 Oximetry on room air:98 % 2018-01-23 BMI 32.19 kg/m2 2018-01-23 Blood pressure systolic 118 mmHg 2018-01-23 Blood pressure diastolic 78 mmHg 2018-01-23 MEDICATIONS Medication Instructions Dosage Frequency Start Date End Date Duration Status Promethazine-Codeine 6.25-10 MG/5ML Orally every 4 hrs, prn cough 1-2 tsp Aug, Not-Taking Warfarin Sodium 4 take 1 tablet along with 3mg tablet to equal 7mg Active Warfarin Sodium 3 MG Orally, take with the 4 mg to equal 7mg Saturday and Saturday 1 tablet Active Voltaren 1 % Transdermal as needed Active Warfarin Sodium 5 mg Orally Saturday, Saturday, , Saturday 1 tablet Active Tylenol 325 MG Orally every 6 hrs 2 capsules as needed 6h Active Pravachol 40 MG Orally Once a dayPM 1 tablet December, Active Metrogel .75 Externally Once a day 1 application to affected area 24h Active Clobetasol Propionate 0.05 % Externally Twice a day 1 application to affected area 12h Active RESULTS No Results PROCEDURES Procedure Date Ordered Result Body Site [facility] VISIT IPPE/AWV January 23, 2018 ANNUAL JAKOB VST; PERSNL PPS INIT January 23, 2018 SINGLE IMMUNIZATION ADMIN January 23, 2018 PT TOBACCO SCREEN RCVD TLK January 23, 2018 FALL RISK ASSESSMENT DOCD January 23, 2018 PCV 13 January 23, 2018 NEG SCR D PT NOT ELIG F/U/PLN DOC January 23, 2018 INSTRUCTIONS MEDICATIONS ADMINISTERED No Known Medications [...]
--- OUTSIDE RECORDS SUMMARY | 2019-03-17 19:10 | XMS REPORT ---
Author Author CHARLENE GARCIA Organization [facility] [place] Address [address] [place] [address] Care Team Providers Care Vacation Guide Name Role Phone CHARLENE GARCIA Unavailable PROBLEMS Type Condition ICD9-CM Code RIJ39-OG Code Onset Dates Condition Status SNOMED Code Problem Bronchitis J40 Active 98590687 Problem Pure hypercholesterolemia E78.00 Active 917568315 Problem History of DVT (deep vein thrombosis) Z86.718 Active 283299502 ALLERGIES No Information ENCOUNTERS Encounter Location Date Diagnosis [place] [address] [address] December, Medicare annual wellness visit, initial Z00.00 ; Pure hypercholesterolemia E78.00 ; History of DVT (deep vein thrombosis) Z86.718 and Encounter for immunization Z23 [place] [address] [address] December, History of DVT (deep vein thrombosis) Z86.718 [place] [address] [address] Oct, History of DVT (deep vein thrombosis) Z86.718 [place] [address] [address] Oct, History of DVT (deep vein thrombosis) Z86.718 [place] [address] [address] Sep, [place] [address] [address] Sep, Pure hypercholesterolemia E78.00 and History of DVT (deep vein thrombosis) Z86.718 [place] [address] [address] Sep, Pure hypercholesterolemia E78.00 [place] [address] [place] [id number] [place] [address] Aug, History of DVT (deep vein thrombosis) Z86.718 [place] [address] [place] [id number] [place] [address] Aug, Encounter for immunization Z23 [place] [address] [address] Jul, History of DVT (deep vein thrombosis) Z86.718 [place] [address] [address] Jun, History of DVT (deep vein thrombosis) Z86.718 and Bronchitis J40 [place] [address] [address] Jun, Personal history of other venous thrombosis and embolism Z86.718 and History of DVT (deep vein thrombosis) Z86.718 [place] [address] [place] [id number] [place] [address] Apr, Personal history of other venous thrombosis and embolism Z86.718 and History of DVT (deep vein thrombosis) Z86.718 [place] [address] [place] [id number] [place] [address] Mar, History of DVT (deep vein thrombosis) Z86.718 [place] [address] [place] [id number] [place] [address] Mar, Personal history of other venous thrombosis and embolism Z86.718 [place] [address] [place] [id number] [place] [address] Jan, History of DVT (deep vein thrombosis) Z86.718 [place] [address] [place] [address] [place] [address] Jan, Acute nasopharyngitis J00 [place] [address] [address] Jan, History of DVT (deep vein thrombosis) Z86.718 and Bronchitis J40 [place] [address] [address] Jan, [place] [address] [address] Jan, History of DVT (deep vein thrombosis) Z86.718 [place] [address] [address] Jan, Personal history of other venous thrombosis and embolism Z86.718 and History of DVT (deep vein thrombosis) Z86.718 [place] [address] [address] Jan, Personal history of other venous thrombosis and embolism Z86.718 and History of DVT (deep vein thrombosis) Z86.718 [place] [address] [address] Jan, History of DVT (deep vein thrombosis) Z86.718 [place] [address] [address] December, History of DVT (deep vein thrombosis) Z86.718 [place] [address] [address] December, History of DVT (deep vein thrombosis) Z86.718 [place] [address] [place] [id number] [place] [address] Dec, History of DVT (deep vein thrombosis) Z86.718 [place] [address] [address] Oct, History of DVT (deep vein thrombosis) Z86.718 [place] [address] [place] [address] [place] [address] Oct, History of DVT (deep vein thrombosis) Z86.718 ; Mixed hyperlipidemia E78.2 ; Impacted cerumen of right ear H61.21 ; Encounter for immunization Z23 and Hyperlipidemia E78.5 [place] [address] [place] [address] Sep, History of DVT (deep vein thrombosis) Z86.718 ; Mixed hyperlipidemia E78.2 ; Impacted cerumen of right ear H61.21 ; Encounter for immunization Z23 and Hyperlipidemia E78.5 [place] [address] [address] Aug, History of DVT (deep vein thrombosis) Z86.718 and Acute nasopharyngitis J00 [place] [address] [address] Aug, Bronchitis J40 and History of DVT (deep vein thrombosis) Z86.718 [place] [address] [address] Aug, History of DVT (deep vein thrombosis) Z86.718 and Pure hypercholesterolemia E78.00 [place] [address] [address] Aug, Mixed hyperlipidemia E78.2 and History of DVT (deep vein thrombosis) Z86.718 [place] [address] [address] Aug, Mixed hyperlipidemia E78.2 [place] [address] [address] Jul, Encounter for immunization Z23 [place] [address] [address] Jul, History of DVT (deep vein thrombosis) Z86.718 [place] [address] [address] Jul, History of DVT (deep vein thrombosis) Z86.718 and Encounter for immunization Z23 [place] [address] [address] May, [facility] [place] [address] [place] [address] May, History of DVT (deep vein thrombosis) Z86.718 [facility] [place] [address] [place] [address] Apr, History of DVT (deep vein thrombosis) Z86.718 [place] [address] [place] [address] [place] [address] Mar, History of DVT (deep vein thrombosis) Z86.718 [place] [address] [place] [address] [place] [address] Jan, History of DVT (deep vein thrombosis) Z86.718 [place] [address] [place] [address] December, [place] [address] [place] [address] [place] [address] December, History of DVT (deep vein thrombosis) Z86.718 and Hyperlipidemia E78.5 [place] [address] [place] [address] [place] [address] Dec, History of DVT (deep vein thrombosis) Z86.718 ; Impacted cerumen of right ear H61.21 and Hyperlipidemia E78.5 [place] [address] [place] [address] Dec, DVT (deep venous thrombosis) I82.409 [place] [address] [place] [address] Dec, DVT (deep venous thrombosis) I82.409 [place] [address] [place] [id number] [place] [address] Oct, DVT (deep venous thrombosis) I82.409 [place] [address] [place] [address] Oct, DVT (deep venous thrombosis) I82.409 [facility] [place] [address] [facility] [id number] [address] Oct, [facility] [place] [address] [place] [address] Oct, History of DVT (deep vein thrombosis) Z86.718 [facility] [place] [address] [place] [id number] [address] Oct, DVT (deep venous thrombosis) I82.409 [facility] [place] [address] [facility] [id number] [address] Oct, History of DVT (deep vein thrombosis) Z86.718 [place] [address] [place] [address] Oct, History of DVT (deep vein thrombosis) Z86.718 IMMUNIZATIONS No Known Immunizations SOCIAL HISTORY Never Assessed REASON FOR VISIT Lab (walk-in) PLAN OF CARE VITAL SIGNS MEDICATIONS Unknown Medications RESULTS No Results PROCEDURES Procedure Date Ordered Result Body Site LAB NOT BILLED BY [facility] Sep 16, 2017 PROTHROMBIN TIME Sep 16, 2017 VENIPUNCT, ROUTINE* Sep 16, 2017 INSTRUCTIONS MEDICATIONS ADMINISTERED No Known Medications [...]
--- OUTSIDE RECORDS SUMMARY | 2019-03-17 19:10 | XMS REPORT ---
Author CHARLENE Donovan [facility] eClinical[employer] Address Unknown Phone Unavailable Care Team Providers Care Dark Room Attendant Name Role Phone CHARLENE GARCIA CP Unavailable Allergies, Adverse Reactions, Alerts Substance Reaction Event Type N.K.D.A. Info Not Available Non Drug Allergy Problems Problem Type Condition Code Onset Dates Condition Status Problem History of DVT (deep vein thrombosis) Z86.718 Active Assessment History of DVT (deep vein thrombosis) Z86.718 Active Problem Hyperlipidemia E78.5 Active Assessment Impacted cerumen of right ear H61.21 Active Assessment Hyperlipidemia E78.5 Active Medications Medication Code System Code Instructions Start Date End Date Status Dosage Metrogel [facility] [address]-58 .75 Externally Once a day 1 application to affected area Clobetasol Propionate [facility] [address]-06 0.05 % Externally Twice a day 1 application to affected area Warfarin Sodium [facility] [address]-68 4 MG Orally, need to be seen for an appt every other day 1 tablet Aleve [facility] [address]-54 220 MG Orally every 12 hrs 1 tablet as needed Voltaren [facility] [address]-55 1 % Transdermal as needed not defined Warfarin Sodium [facility] [address]-74 5 MG Orally Once a day on , , 1 tablet Warfarin Sodium [facility] [address]-39 3 MG Orally Once a day on Saturday, , Saturday and Saturday 1 tablet Procedures Procedure Coding System Code Date EAR IRRIGATION CPT-4 89576 December 27, 2015 [facility] VISIT ESTABLISHED PATIENT CPT-4 G0467 December 27, 2015 PROTHROMBIN TIME CPT-4 12293 December 27, 2015 Office Visit, Est Pt., Level 2 CPT-4 62238 December 27, 2015 Vital Signs Date/Time: December 27, 2015 Temperature 98.3 F Weight 243.2 lbs Height 73 in BMI 32.08 Index Blood Pressure Diastolic 80 mmHg Blood Pressure Systolic 142 mmHg Cardiac Monitoring Heart Rate 84 bpm Results No Known Results Summary Purpose eClinicalWorks Submission
--- OUTSIDE RECORDS SUMMARY | 2019-03-17 19:10 | XMS REPORT ---
Author Author CHARLENE GARCIA [facility] Address [address] [place] [address] Care Team Providers Care Saw Runner Name Role Phone CHARLENE GARCIA Unavailable PROBLEMS Type Condition ICD9-CM Code IZM37-ZJ Code Onset Dates Condition Status SNOMED Code Problem Bronchitis J40 Active 23535170 Problem Pure hypercholesterolemia E78.00 Active 735920619 Problem History of DVT (deep vein thrombosis) Z86.718 Active 558424548 ALLERGIES No Information ENCOUNTERS Encounter Location Date Diagnosis [place] [address] [address] December, Medicare annual wellness visit, initial Z00.00 [place] [address] [address] December, History of DVT (deep vein thrombosis) Z86.718 [place] [address] [address] Oct, History of DVT (deep vein thrombosis) Z86.718 [place] [address] [address] Oct, History of DVT (deep vein thrombosis) Z86.718 [place] [address] [address] Sep, [place] [address] [address] Sep, Pure hypercholesterolemia E78.00 and History of DVT (deep vein thrombosis) Z86.718 [place] [address] [address] Sep, Pure hypercholesterolemia E78.00 [place] [address] [place] [address] [place] [address] Aug, History of DVT (deep vein thrombosis) Z86.718 [place] [address] [address] Aug, Encounter for immunization Z23 [place] [address] [address] Jul, History of DVT (deep vein thrombosis) Z86.718 [place] [address] [place] [id number] [place] [address] Jun, History of DVT (deep vein thrombosis) Z86.718 and Bronchitis J40 [place] [address] [address] Jun, Personal history of other venous thrombosis and embolism Z86.718 and History of DVT (deep vein thrombosis) Z86.718 [place] [address] [place] [id number] [place] [address] Apr, Personal history of other venous thrombosis and embolism Z86.718 and History of DVT (deep vein thrombosis) Z86.718 [place] [address] [place] [id number] [place] [address] Mar, History of DVT (deep vein thrombosis) Z86.718 [place] [address] [place] [id number] [place] [address] Mar, Personal history of other venous thrombosis and embolism Z86.718 [place] [address] [place] [id number] [place] [address] Jan, History of DVT (deep vein thrombosis) Z86.718 [place] [address] [place] [id number] [place] [address] Jan, Acute nasopharyngitis J00 [place] [address] [place] [id number] [place] [address] Jan, History of DVT (deep vein thrombosis) Z86.718 and Bronchitis J40 [place] [address] [place] [id number] [place] [address] Jan, [place] [address] [address] Jan, History of DVT (deep vein thrombosis) Z86.718 [place] [address] [place] [id number] [place] [address] Jan, Personal history of other venous thrombosis and embolism Z86.718 and History of DVT (deep vein thrombosis) Z86.718 [place] [address] [place] [id number] [place] [address] Jan, Personal history of other venous thrombosis and embolism Z86.718 and History of DVT (deep vein thrombosis) Z86.718 [place] [address] [place] [id number] [place] [address] Jan, History of DVT (deep vein thrombosis) Z86.718 [place] [address] [place] [id number] [place] [address] December, History of DVT (deep vein thrombosis) Z86.718 [place] [address] [place] [id number] [place] [address] December, History of DVT (deep vein thrombosis) Z86.718 [place] [address] [place] [id number] [place] [address] Dec, History of DVT (deep vein thrombosis) Z86.718 [place] [address] [place] [id number] [place] [address] Oct, History of DVT (deep vein thrombosis) Z86.718 [place] [address] [place] [id number] [place] [address] Oct, History of DVT (deep vein thrombosis) Z86.718 ; Mixed hyperlipidemia E78.2 ; Impacted cerumen of right ear H61.21 ; Encounter for immunization Z23 and Hyperlipidemia E78.5 [place] [address] [place] [id number] [place] [address] Sep, History of DVT (deep vein thrombosis) Z86.718 ; Mixed hyperlipidemia E78.2 ; Impacted cerumen of right ear H61.21 ; Encounter for immunization Z23 and Hyperlipidemia E78.5 [place] [address] [address] Aug, History of DVT (deep vein thrombosis) Z86.718 and Acute nasopharyngitis J00 [place] [address] [address] Aug, Bronchitis J40 and History of DVT (deep vein thrombosis) Z86.718 [place] [address] [address] Aug, History of DVT (deep vein thrombosis) Z86.718 and Pure hypercholesterolemia E78.00 [place] [address] [address] Aug, Mixed hyperlipidemia E78.2 and History of DVT (deep vein thrombosis) Z86.718 [place] [address] [address] Aug, Mixed hyperlipidemia E78.2 [place] [address] [address] Jul, Encounter for immunization Z23 [place] [address] [address] Jul, History of DVT (deep vein thrombosis) Z86.718 [place] [address] [address] Jul, History of DVT (deep vein thrombosis) Z86.718 and Encounter for immunization Z23 [place] [address] [address] May, [place] [address] [place] [address] May, History of DVT (deep vein thrombosis) Z86.718 [facility] [address] [place] [id number] [place] [address] Apr, History of DVT (deep vein thrombosis) Z86.718 [facility] [address] [place] [id number] [place] [address] Mar, History of DVT (deep vein thrombosis) Z86.718 [facility] [address] [place] [id number] [place] [address] Jan, History of DVT (deep vein thrombosis) Z86.718 [place] [address] [place] [id number] [place] [address] December, [place] [address] [place] [id number] [place] [address] December, History of DVT (deep vein thrombosis) Z86.718 and Hyperlipidemia E78.5 [place] [address] [place] [id number] [place] [address] Dec, History of DVT (deep vein thrombosis) Z86.718 ; Impacted cerumen of right ear H61.21 and Hyperlipidemia E78.5 [place] [address] [place] [address] Dec, DVT (deep venous thrombosis) I82.409 [place] [address] [place] [id number] [place] [address] Dec, DVT (deep venous thrombosis) I82.409 [place] [address] [place] [id number] [place] [address] Oct, DVT (deep venous thrombosis) I82.409 [place] [address] [place] [address] Oct, DVT (deep venous thrombosis) I82.409 [place] [address] [place] [id number] [place] [address] Oct, [facility] [address] [facility] [id number] [address] Oct, History of DVT (deep vein thrombosis) Z86.718 [place] [address] [place] [id number] [address] Oct, DVT (deep venous thrombosis) I82.409 [place] [address] [place] [id number] [address] Oct, History of DVT (deep vein thrombosis) Z86.718 [place] [address] [facility] [id number] [address] Oct, History of DVT (deep vein thrombosis) Z86.718 IMMUNIZATIONS No Known Immunizations SOCIAL HISTORY Never Assessed REASON FOR VISIT Lab (walk-in) PLAN OF CARE VITAL SIGNS MEDICATIONS Unknown Medications RESULTS Name Result Date Reference Range INR (IN HOUSE) 2017-06-12 INR 3.6 1.10 - 3.30 PREVIOUS INR 2.8 CURRENT COUMADIN DOSE 5mg SSW/7mg MTTF NEW COUMADIN DOSE Lot # [id number] Exp date 30 Jan 2018 PROCEDURES Procedure Date Ordered Result Body Site PROTHROMBIN TIME Jun 12, 2017 INSTRUCTIONS MEDICATIONS ADMINISTERED No Known Medications [...]
--- OUTSIDE RECORDS SUMMARY | 2019-03-17 19:10 | XMS REPORT ---
Author Author CHARLENE GARCIA [facility] Address [address] [place] [address] Care Team Providers Care Carbon Rod Inserter Name Role Phone CHARLENE GARCIA Unavailable PROBLEMS Type Condition ICD9-CM Code LXM85-PZ Code Onset Dates Condition Status SNOMED Code Problem Bronchitis J40 Active 96512233 Problem Pure hypercholesterolemia E78.00 Active 250570640 Problem History of DVT (deep vein thrombosis) Z86.718 Active 632648456 ALLERGIES Substance Reaction Event Type Date Status N.K.D.A. Unknown Non Drug Allergy Aug, Unknown SOCIAL HISTORY No smoking Hx information available PLAN OF CARE Activity Details Follow Up prn Reason: VITAL SIGNS Height 73 in 2016-08-21 Weight 234.6 lbs 2016-08-21 Temperature 98.9 degrees Fahrenheit 2016-08-21 Heart Rate 74 bpm 2016-08-21 Respiratory Rate 18 2016-08-21 BMI 30.95 kg/m2 2016-08-21 Blood pressure systolic 124 mmHg 2016-08-21 Blood pressure diastolic 70 mmHg 2016-08-21 MEDICATIONS Medication Instructions Dosage Frequency Start Date End Date Duration Status Pravachol 20 mg Orally Once a dayPM 1 tablet December, Active Voltaren 1 % Transdermal as needed Active Clobetasol Propionate 0.05 % Externally Twice a day 1 application to affected area 12h Active Tylenol 325 MG Orally every 6 hrs 2 capsules as needed 6h Active Metrogel .75 Externally Once a day 1 application to affected area 24h Active Levaquin 750 MG Orally Once a day 1 tablet 24h Aug, Aug, 05 days Active Warfarin Sodium 4 MG Orally, Take with 3 mg to equal 7 mg Sat, Sat, , Fri, Sat 1 tablet Active Warfarin Sodium 5 mg Orally Once a day on Sat and Saturday 1 tablet Active Warfarin Sodium 3 MG Orally, take with the 4 mg to equal 7mg Saturday, , , Sat, Sat 1 tablet Active RESULTS No Results PROCEDURES Procedure Date Ordered Related Diagnosis Body Site [facility] VISIT ESTABLISHED PATIENT Aug 21, 2016 Office Visit, Est Pt., Level 3 Aug 21, 2016 IMMUNIZATIONS No Known Immunizations
--- OUTSIDE RECORDS SUMMARY | 2019-03-17 19:10 | XMS REPORT ---
Author Author CHARLENE GARCIA [facility] Address [address] [place] [address] Care Team Providers Care Grade Tamper Name Role Phone CHARLENE GARCIA Unavailable PROBLEMS Type Condition ICD9-CM Code NEL60-SB Code Onset Dates Condition Status SNOMED Code Problem Bronchitis J40 Active 10632139 Problem Pure hypercholesterolemia E78.00 Active 182344248 Problem History of DVT (deep vein thrombosis) Z86.718 Active 156603237 ALLERGIES Substance Reaction Event Type Date Status N.K.D.A. Unknown Non Drug Allergy Aug, Unknown SOCIAL HISTORY No smoking Hx information available PLAN OF CARE Activity Details Follow Up 6 Months Reason: VITAL SIGNS Height 73 in 2016-08-28 Weight 243.8 lbs 2016-08-28 Temperature 97.7 degrees Fahrenheit 2016-08-28 Heart Rate 78 bpm 2016-08-28 Respiratory Rate 20 2016-08-28 BMI 32.16 kg/m2 2016-08-28 Blood pressure systolic 128 mmHg 2016-08-28 Blood pressure diastolic 80 mmHg 2016-08-28 MEDICATIONS Medication Instructions Dosage Frequency Start Date End Date Duration Status Metrogel .75 Externally Once a day 1 application to affected area 24h Active Clobetasol Propionate 0.05 % Externally Twice a day 1 application to affected area 12h Active Voltaren 1 % Transdermal as needed Active Tylenol 325 MG Orally every 6 hrs 2 capsules as needed 6h Active Promethazine-Codeine 6.25-10 MG/5ML Orally every 4 hrs, prn cough 1-2 tsp Aug, Active Pravachol 20 mg Orally Once a dayPM 1 tablet December, Active Warfarin Sodium 3 MG Orally, take with the 4 mg to equal 7mg Saturday, , Saturday, , Sat, Sat 1 tablet Active Warfarin Sodium 4 MG Orally, Take with 3 mg to equal 7 mg Sat, Sat, , Sat, Sat 1 tablet Active Warfarin Sodium 5 mg Orally Once a day onSunday 1 tablet Active RESULTS Name Result Date Reference Range INR (IN HOUSE) 2016-08-28 INR 2.7 1.10 - 3.30 PREVIOUS INR 1.8 CURRENT COUMADIN DOSE NEW COUMADIN DOSE Lot # [id number]/2016 Exp date PROCEDURES Procedure Date Ordered Related Diagnosis Body Site PROTHROMBIN TIME Aug 28, 2016 [facility] VISIT ESTABLISHED PATIENT Aug 28, 2016 Office Visit, Est Pt., Level 2 Aug 28, 2016 IMMUNIZATIONS No Known Immunizations
--- OUTSIDE RECORDS SUMMARY | 2019-03-17 19:10 | XMS REPORT ---
Author Author CHARLENE GARCIA [facility] Address [address] [place] [address] Care Team Providers Care Preparer Samples And Repairs Name Role Phone CHARLENE GARCIA Unavailable PROBLEMS Type Condition ICD9-CM Code EQE65-MP Code Onset Dates Condition Status SNOMED Code Problem Bronchitis J40 Active 79072515 Problem Pure hypercholesterolemia E78.00 Active 845237292 Problem History of DVT (deep vein thrombosis) Z86.718 Active 678048157 ALLERGIES No Information ENCOUNTERS Encounter Location Date Diagnosis [place] [address] [address] Oct, History of DVT (deep vein thrombosis) Z86.718 [place] [address] [address] Oct, History of DVT (deep vein thrombosis) Z86.718 [place] [address] [address] Sep, [place] [address] [address] Sep, Pure hypercholesterolemia E78.00 and History of DVT (deep vein thrombosis) Z86.718 [place] [address] [address] Sep, Pure hypercholesterolemia E78.00 [place] [address] [address] Aug, History of DVT (deep vein thrombosis) Z86.718 [place] [address] [address] Aug, Encounter for immunization Z23 [place] [address] [address] Jul, History of DVT (deep vein thrombosis) Z86.718 [place] [address] [place] [id number] [place] [address] Jun, History of DVT (deep vein thrombosis) Z86.718 and Bronchitis J40 [place] [address] [place] [id number] [place] [address] Jun, Personal history of other venous thrombosis and embolism Z86.718 and History of DVT (deep vein thrombosis) Z86.718 [place] [address] [place] [id number] [place] [address] Apr, Personal history of other venous thrombosis and embolism Z86.718 and History of DVT (deep vein thrombosis) Z86.718 [place] [address] [place] [id number] [place] [address] Mar, History of DVT (deep vein thrombosis) Z86.718 [place] [address] [place] [id number] [place] [address] Mar, Personal history of other venous thrombosis and embolism Z86.718 [place] [address] [place] [id number] [place] [address] Jan, History of DVT (deep vein thrombosis) Z86.718 [place] [address] [place] [id number] [place] [address] Jan, Acute nasopharyngitis J00 [place] [address] [place] [id number] [place] [address] Jan, History of DVT (deep vein thrombosis) Z86.718 and Bronchitis J40 [place] [address] [place] [id number] [place] [address] Jan, [place] [address] [place] [id number] [place] [address] Jan, History of DVT (deep vein thrombosis) Z86.718 [place] [address] [place] [address] Jan, Personal history of other venous thrombosis and embolism Z86.718 and History of DVT (deep vein thrombosis) Z86.718 [place] [address] [place] [id number] [place] [address] Jan, Personal history of other venous thrombosis and embolism Z86.718 and History of DVT (deep vein thrombosis) Z86.718 [place] [address] [place] [id number] [place] [address] Jan, History of DVT (deep vein thrombosis) Z86.718 [place] [address] [place] [id number] [place] [address] December, History of DVT (deep vein thrombosis) Z86.718 [place] [address] [place] [id number] [place] [address] December, History of DVT (deep vein thrombosis) Z86.718 [place] [address] [place] [id number] [place] [address] Dec, History of DVT (deep vein thrombosis) Z86.718 [place] [address] [place] [id number] [place] [address] Oct, History of DVT (deep vein thrombosis) Z86.718 [place] [address] [place] [id number] [place] [address] Oct, History of DVT (deep vein thrombosis) Z86.718 ; Mixed hyperlipidemia E78.2 ; Impacted cerumen of right ear H61.21 ; Encounter for immunization Z23 and Hyperlipidemia E78.5 [place] [address] [place] [id number] [place] [address] Sep, History of DVT (deep vein thrombosis) Z86.718 ; Mixed hyperlipidemia E78.2 ; Impacted cerumen of right ear H61.21 ; Encounter for immunization Z23 and Hyperlipidemia E78.5 [place] [address] [place] [id number] [place] [address] Aug, History of DVT (deep vein thrombosis) Z86.718 and Acute nasopharyngitis J00 [place] [address] [place] [id number] [place] [address] Aug, Bronchitis J40 and History of DVT (deep vein thrombosis) Z86.718 [place] [address] [address] Aug, History of DVT (deep vein thrombosis) Z86.718 and Pure hypercholesterolemia E78.00 [place] [address] [address] Aug, Mixed hyperlipidemia E78.2 and History of DVT (deep vein thrombosis) Z86.718 [place] [address] [place] [id number] [place] [address] Aug, Mixed hyperlipidemia E78.2 [place] [address] [place] [id number] [place] [address] Jul, Encounter for immunization Z23 [place] [address] [address] Jul, History of DVT (deep vein thrombosis) Z86.718 [place] [address] [place] [id number] [place] [address] Jul, History of DVT (deep vein thrombosis) Z86.718 and Encounter for immunization Z23 [place] [address] [place] [id number] [place] [address] May, [place] [address] [address] May, History of DVT (deep vein thrombosis) Z86.718 [place] [address] [place] [id number] [place] [address] Apr, History of DVT (deep vein thrombosis) Z86.718 [place] [address] [place] [id number] [place] [address] Mar, History of DVT (deep vein thrombosis) Z86.718 [place] [address] [place] [id number] [place] [address] Jan, History of DVT (deep vein thrombosis) Z86.718 [place] [address] [place] [id number] [place] [address] December, [place] [address] [address] December, History of DVT (deep vein thrombosis) Z86.718 and Hyperlipidemia E78.5 [place] [address] [place] [id number] [place] [address] Dec, History of DVT (deep vein thrombosis) Z86.718 ; Impacted cerumen of right ear H61.21 and Hyperlipidemia E78.5 [place] [address] [place] [id number] [place] [address] Dec, DVT (deep venous thrombosis) I82.409 [place] [address] [place] [id number] [place] [address] Dec, DVT (deep venous thrombosis) I82.409 [place] [address] [place] [id number] [place] [address] Oct, DVT (deep venous thrombosis) I82.409 [place] [address] [place] [id number] [place] [address] Oct, DVT (deep venous thrombosis) I82.409 [place] [address] [place] [id number] [place] [address] Oct, [place] [address] [place] [id number] [place] [address] Oct, History of DVT (deep vein thrombosis) Z86.718 [place] [address] [place] [id number] [place] [address] Oct, DVT (deep venous thrombosis) I82.409 [facility] [address] [facility] [id number] [place] [address] Oct, History of DVT (deep vein thrombosis) Z86.718 [facility] [address] [facility]] [id number] [place] [address] Oct, History of DVT (deep vein thrombosis) Z86.718 IMMUNIZATIONS No Known Immunizations SOCIAL HISTORY Never Assessed REASON FOR VISIT PLAN OF CARE VITAL SIGNS MEDICATIONS Medication Instructions Dosage Frequency Start Date End Date Duration Status Promethazine-Codeine 6.25-10 MG/5ML Orally every 4 hrs, prn cough 1-2 tsp Aug, Active RESULTS No Results PROCEDURES No Known [...]
--- OUTSIDE RECORDS SUMMARY | 2019-03-17 19:10 | XMS REPORT ---
Author CHARLENE Donovan [facility] e[employer] Address Unknown Phone Unavailable Care Team Providers Care Director Geophysical Laboratory Name Role Phone CHARLENE GARCIA Unavailable Allergies No Known Allergies Problems Problem Type Condition Code Onset Dates Condition Status Problem History of DVT (deep vein thrombosis) Z86.718 Active Assessment History of DVT (deep vein thrombosis) Z86.718 Active Problem Hyperlipidemia E78.5 Active Medications No Known Medications Procedures Procedure Coding System Code Date PROTHROMBIN TIME CPT-4 73874 March 23, 2016 Results No Known Results Summary Purpose eClinicalWorks Submission
--- OUTSIDE RECORDS SUMMARY | 2019-03-17 19:10 | XMS REPORT ---
Author Author CHARLENE GARCIA [facility] Address [address] [place] [address] Care Team Providers Care Circuit Board Inspector Name Role Phone CHARLENE GARCIA Unavailable PROBLEMS Type Condition ICD9-CM Code ASS77-BD Code Onset Dates Condition Status SNOMED Code Problem Bronchitis J40 Active 36733756 Problem Pure hypercholesterolemia E78.00 Active 484039193 Problem History of DVT (deep vein thrombosis) Z86.718 Active 064383838 ALLERGIES No Information SOCIAL HISTORY Never Assessed PLAN OF CARE VITAL SIGNS MEDICATIONS Unknown Medications RESULTS Name Result Date Reference Range INR (IN HOUSE) 2016-10-23 INR 4.3 1.10 - 3.30 PREVIOUS INR 3.3 CURRENT COUMADIN DOSE 7 mg qd NEW COUMADIN DOSE 5 mg twice a week, 7.5 mg five days a week Lot # [id number] Exp date Jul 2017 PROCEDURES Procedure Date Ordered Result Body Site PROTHROMBIN TIME Oct 23, 2016 IMMUNIZATIONS No Known Immunizations MEDICAL (GENERAL) HISTORY Type Description Date Medical History DVT-1999 Surgical History bilateral cataract surgery Surgical History detached retina surgeries x 2 Left eye Surgical History reattach the lens in right eye x 2 Surgical History tonsiillectomy Surgical History hip replacement-left hip 12/2014 Hospitalization History surgeries Hospitalization History DVT for 17 days
--- OUTSIDE RECORDS SUMMARY | 2019-03-17 19:10 | XMS REPORT ---
Author CHARLENE Donovan [facility] eClinical[employer] Address Unknown Phone Unavailable Care Team Providers Care Pool Nurse Name Role Phone CHARLENE GARCIA Unavailable Allergies No Known Allergies Problems Problem Type Condition Code Onset Dates Condition Status Problem History of DVT (deep vein thrombosis) Z86.718 Active Assessment History of DVT (deep vein thrombosis) Z86.718 Active Problem Hyperlipidemia E78.5 Active Medications No Known Medications Procedures Procedure Coding System Code Date PROTHROMBIN TIME CPT-4 64087 Apr 24, 2016 Results No Known Results Summary Purpose eClinicalWorks Submission
--- OUTSIDE RECORDS SUMMARY | 2019-03-17 19:10 | XMS REPORT ---
Author Author CHARLENE GARCIA [facility] Address [address] [place] [address] Care Team Providers Care Cafeteria Attendant Name Role Phone CHARLENE GARCIA Unavailable PROBLEMS Type Condition ICD9-CM Code RWU84-[id number] Code Onset Dates Condition Status SNOMED Code Problem Bronchitis J40 Active 05507219 Problem Pure hypercholesterolemia E78.00 Active 904460785 Problem History of DVT (deep vein thrombosis) Z86.718 Active 143402235 ALLERGIES No Information SOCIAL HISTORY Never Assessed PLAN OF CARE VITAL SIGNS MEDICATIONS Medication Instructions Dosage Frequency Start Date End Date Duration Status Warfarin Sodium 4 MG Orally, Take with 3 mg to equal 7 mg Mon, Tue, Thurs, Fri, Sat 1 tablet Active RESULTS No Results PROCEDURES No Known procedures IMMUNIZATIONS No Known Immunizations MEDICAL (GENERAL) HISTORY Type Description Date Medical History DVT-1999 Surgical History bilateral cataract surgery Surgical History detached retina surgeries x 2 Left eye Surgical History reattach the lens in right eye x 2 Surgical History tonsiillectomy Surgical History hip replacement-left hip 12/2014 Hospitalization History surgeries Hospitalization History DVT for 17 days
--- OUTSIDE RECORDS SUMMARY | 2019-03-17 19:11 | XMS REPORT ---
Author Author CHARLENE GARCIA Organization [facility] Address [address] [place] [address] Care Team Providers Care Supervisor [employer] Name Role Phone CHARLENE GARCIA Unavailable PROBLEMS Type Condition ICD9-CM Code CXK17-[id number] Code Onset Dates Condition Status SNOMED Code Problem Bronchitis J40 Active 20201881 Problem Pure hypercholesterolemia E78.00 Active 514302948 Problem History of DVT (deep vein thrombosis) Z86.718 Active 255752657 ALLERGIES No Information ENCOUNTERS Encounter Location Date Diagnosis [place] [address] [address] December, Medicare annual wellness visit, initial Z00.00 ; Pure hypercholesterolemia E78.00 ; History of DVT (deep vein thrombosis) Z86.718 and Encounter for immunization Z23 [place] [address] [address] December, History of DVT (deep vein thrombosis) Z86.718 [place] [address] [address] Oct, History of DVT (deep vein thrombosis) Z86.718 [place] [address] [address] Oct, History of DVT (deep vein thrombosis) Z86.718 [place] [address] [address] Sep, [place] [address] [address] Sep, Pure hypercholesterolemia E78.00 and History of DVT (deep vein thrombosis) Z86.718 [place] [address] [address] Sep, Pure hypercholesterolemia E78.00 [place] [address] [place] [id number] [place] [address] Aug, History of DVT (deep vein thrombosis) Z86.718 [place] [address] [place] [id number] [place] [address] Aug, Encounter for immunization Z23 [place] [address] [address] Jul, History of DVT (deep vein thrombosis) Z86.718 [place] [address] [address] Jun, History of DVT (deep vein thrombosis) Z86.718 and Bronchitis J40 [place] [address] [address] Jun, Personal history of other venous thrombosis and embolism Z86.718 and History of DVT (deep vein thrombosis) Z86.718 [place] [address] [place] [id number] [place] [address] Apr, Personal history of other venous thrombosis and embolism Z86.718 and History of DVT (deep vein thrombosis) Z86.718 [place] [address] [place] [id number] [place] [address] Mar, History of DVT (deep vein thrombosis) Z86.718 [place] [address] [place] [id number] [place] [address] Mar, Personal history of other venous thrombosis and embolism Z86.718 [place] [address] [place] [id number] [place] [address] Jan, History of DVT (deep vein thrombosis) Z86.718 [place] [address] [place] [id number] [place] [address] Jan, Acute nasopharyngitis J00 [place] [address] [address] Jan, History of DVT (deep vein thrombosis) Z86.718 and Bronchitis J40 [place] [address] [address] Jan, [place] [address] [address] Jan, History of DVT (deep vein thrombosis) Z86.718 [place] [address] [address] Jan, Personal history of other venous thrombosis and embolism Z86.718 and History of DVT (deep vein thrombosis) Z86.718 [place] [address] [address] Jan, Personal history of other venous thrombosis and embolism Z86.718 and History of DVT (deep vein thrombosis) Z86.718 [place] [address] [address] Jan, History of DVT (deep vein thrombosis) Z86.718 [place] [address] [address] December, History of DVT (deep vein thrombosis) Z86.718 [place] [address] [address] December, History of DVT (deep vein thrombosis) Z86.718 [place] [address] [place] [id number] [place] [address] Dec, History of DVT (deep vein thrombosis) Z86.718 [place] [address] [address] Oct, History of DVT (deep vein thrombosis) Z86.718 [place] [address] [place] [id number] [place] [address] Oct, History of DVT (deep vein thrombosis) Z86.718 ; Mixed hyperlipidemia E78.2 ; Impacted cerumen of right ear H61.21 ; Encounter for immunization Z23 and Hyperlipidemia E78.5 [place] [address] [place] [id number] Sep, History of DVT (deep vein thrombosis) Z86.718 ; Mixed hyperlipidemia E78.2 ; Impacted cerumen of right ear H61.21 ; Encounter for immunization Z23 and Hyperlipidemia E78.5 [place] [address] [address] Aug, History of DVT (deep vein thrombosis) Z86.718 and Acute nasopharyngitis J00 [place] [address] [address] Aug, Bronchitis J40 and History of DVT (deep vein thrombosis) Z86.718 [place] [address] [address] Aug, History of DVT (deep vein thrombosis) Z86.718 and Pure hypercholesterolemia E78.00 [place] [address] [address] Aug, Mixed hyperlipidemia E78.2 and History of DVT (deep vein thrombosis) Z86.718 [place] [address] [address] Aug, Mixed hyperlipidemia E78.2 [place] [address] [address] Jul, Encounter for immunization Z23 [place] [address] [address] Jul, History of DVT (deep vein thrombosis) Z86.718 [place] [address] [address] Jul, History of DVT (deep vein thrombosis) Z86.718 and Encounter for immunization Z23 [place] [address] [address] May, [facility] [address] [place] [address] May, History of DVT (deep vein thrombosis) Z86.718 [facility] [address] [place] [address] Apr, History of DVT (deep vein thrombosis) Z86.718 [place] [address] [place] [id number] [place] [address] Mar, History of DVT (deep vein thrombosis) Z86.718 [place] [address] [place] [id number] [place] [address] Jan, History of DVT (deep vein thrombosis) Z86.718 [place] [address] [place] [address] December, [place] [address] [place] [id number] [place] [address] December, History of DVT (deep vein thrombosis) Z86.718 and Hyperlipidemia E78.5 [place] [address] [place] [id number] [place] [address] Dec, History of DVT (deep vein thrombosis) Z86.718 ; Impacted cerumen of right ear H61.21 and Hyperlipidemia E78.5 [place] [address] [place] [address] Dec, DVT (deep venous thrombosis) I82.409 [place] [address] [place] [address] Dec, DVT (deep venous thrombosis) I82.409 [place] [address] [place] [id number] [place] [address] Oct, DVT (deep venous thrombosis) I82.409 [place] [address] [place] [address] Oct, DVT (deep venous thrombosis) I82.409 [facility] [address] [facility] [id number] [address] Oct, [facility] [address] [address] Oct, History of DVT (deep vein thrombosis) Z86.718 [facility] [address] [place] [id number] [address] Oct, DVT (deep venous thrombosis) I82.409 [facility] [address] [place] [id number] [address] Oct, History of DVT (deep vein thrombosis) Z86.718 [facility] [address] [address] Oct, History of DVT (deep vein thrombosis) Z86.718 IMMUNIZATIONS No Known Immunizations SOCIAL HISTORY Never Assessed REASON FOR VISIT PLAN OF CARE VITAL SIGNS MEDICATIONS Unknown [...]
--- OUTSIDE RECORDS SUMMARY | 2019-03-17 19:11 | XMS REPORT ---
Author Author CHARLENE GARCIA [facility] Address [address] [place] [address] Care Team Providers Care Mobile Application Architect Name Role Phone CHARLENE GARCIA Unavailable PROBLEMS Type Condition ICD9-CM Code [id number] Code Onset Dates Condition Status SNOMED Code Problem Bronchitis J40 Active 73516637 Problem Pure hypercholesterolemia E78.00 Active 981357438 Problem History of DVT (deep vein thrombosis) Z86.718 Active 279507912 ALLERGIES No Information SOCIAL HISTORY Never Assessed PLAN OF CARE VITAL SIGNS MEDICATIONS Unknown Medications RESULTS Name Result Date Reference Range INR (IN HOUSE) INR 3.1 1.10 - 3.30 PREVIOUS INR 4.3 CURRENT COUMADIN DOSE see internal notes NEW COUMADIN DOSE Lot # [id number] Exp date 09/2017 PROCEDURES Procedure Date Ordered Result Body Site PROTHROMBIN TIME November 22, 2016 IMMUNIZATIONS No Known Immunizations MEDICAL (GENERAL) HISTORY Type Description Date Medical History DVT-1999 Surgical History bilateral cataract surgery Surgical History detached retina surgeries x 2 Left eye Surgical History reattach the lens in right eye x 2 Surgical History tonsiillectomy Surgical History hip replacement-left hip 12/2014 Hospitalization History surgeries Hospitalization History DVT for 17 days
--- OUTSIDE RECORDS SUMMARY | 2019-03-17 19:11 | XMS REPORT ---
Author Author CHARLENE GARCIA [facility] Address [address] [place] [address] Care Team Providers Care Cyanide Pot Tender Name Role Phone CHARLENE GARCIA Unavailable PROBLEMS Type Condition ICD9-CM Code ULO86-KS Code Onset Dates Condition Status SNOMED Code Problem Pure hypercholesterolemia E78.00 Active 046134028 Problem History of DVT (deep vein thrombosis) Z86.718 Active 275377863 Assessment History of DVT (deep vein thrombosis) Z86.718 Aug, Active 696595365 ALLERGIES Substance Reaction Event Type Date Status N.K.D.A. Unknown Non Drug Allergy Aug, Unknown SOCIAL HISTORY No smoking Hx information available PLAN OF CARE VITAL SIGNS Height 73 in 2016-08-06 Weight 241.6 lbs 2016-08-06 Heart Rate 72 bpm 2016-08-06 Respiratory Rate 18 2016-08-06 BMI 31.87 kg/m2 2016-08-06 Blood pressure systolic 124 mmHg 2016-08-06 Blood pressure diastolic 76 mmHg 2016-08-06 MEDICATIONS Medication Instructions Dosage Frequency Start Date End Date Duration Status Clobetasol Propionate 0.05 % Externally Twice a day 1 application to affected area 12h Active Voltaren 1 % Transdermal as needed Active Aleve 220 MG Orally every 12 hrs 1 tablet as needed 12h Active Warfarin Sodium 5 mg Orally Once a day on Sat and Saturday 1 tablet Active Metrogel .75 Externally Once a day 1 application to affected area 24h Active Pravachol 20 mg Orally Once a dayPM 1 tablet December, Active Warfarin Sodium 3 MG Orally, take with the 4 mg to equal 7mg Saturday, , , Sat, Sat 1 tablet Active Warfarin Sodium 4 MG Orally, Take with 3 mg to equal 7 mg Sat, Sat, , Sat, Sat 1 tablet Active RESULTS No Results PROCEDURES Procedure Date Ordered Related Diagnosis Body Site [facility] VISIT ESTABLISHED PATIENT Aug 06, 2016 Office Visit, Est Pt., Level 3 Aug 06, 2016 IMMUNIZATIONS No Known Immunizations
--- OUTSIDE RECORDS SUMMARY | 2019-03-17 19:11 | XMS REPORT ---
Author Author CHARLENE GARCIA [facility] Address [address] [place] [address] Care Team Providers Care In Store Demonstrator Name Role Phone CHARLENE GARCIA Unavailable PROBLEMS Type Condition ICD9-CM Code VMN93-IH Code Onset Dates Condition Status SNOMED Code Problem Bronchitis J40 Active 09577788 Problem Pure hypercholesterolemia E78.00 Active 723597282 Problem History of DVT (deep vein thrombosis) Z86.718 Active 200963037 ALLERGIES No Known Allergies ENCOUNTERS Encounter Location Date Diagnosis [place] [address] [address] December, Medicare annual wellness visit, initial Z00.00 [place] [address] [address] December, History of DVT (deep vein thrombosis) Z86.718 [place] [address] [address] Oct, History of DVT (deep vein thrombosis) Z86.718 [place] [address] [place] [id number] [place] [address] Oct, History of DVT (deep vein thrombosis) Z86.718 [facility] [address] [place] [id number] [place] [address] Sep, [facility] [address] [address] Sep, Pure hypercholesterolemia E78.00 and History of DVT (deep vein thrombosis) Z86.718 [place] [address] [place] [id number] [place] [address] Sep, Pure hypercholesterolemia E78.00 [place] [address] [place] [id number] [place] [address] Aug, History of DVT (deep vein thrombosis) Z86.718 [place] [address] [place] [id number] [place] [address] Aug, Encounter for immunization Z23 [place] [address] [address] Jul, History of DVT (deep vein thrombosis) Z86.718 [place] [address] [place] [id number] [place] [address] Jun, History of DVT (deep vein thrombosis) Z86.718 and Bronchitis J40 [place] [address] [address] Jun, Personal history of other venous thrombosis and embolism Z86.718 and History of DVT (deep vein thrombosis) Z86.718 [place] [address] [place] [id number] [place] [address] Apr, Personal history of other venous thrombosis and embolism Z86.718 and History of DVT (deep vein thrombosis) Z86.718 [place] [address] [place] [id number] [place] [address] Mar, History of DVT (deep vein thrombosis) Z86.718 [place] [address] [place] [id number] [place] [address] Mar, Personal history of other venous thrombosis and embolism Z86.718 [place] [address] [place] [id number] [place] [address] Jan, History of DVT (deep vein thrombosis) Z86.718 [place] [address] [place] [id number] [place] [address] Jan, Acute nasopharyngitis J00 [place] [address] [place] [id number] [place] [address] Jan, History of DVT (deep vein thrombosis) Z86.718 and Bronchitis J40 [place] [address] [place] [id number] [place] [address] Jan, [place] [address] [address] Jan, History of DVT (deep vein thrombosis) Z86.718 [place] [address] [place] [id number] [place] [address] Jan, Personal history of other venous thrombosis and embolism Z86.718 and History of DVT (deep vein thrombosis) Z86.718 [place] [address] [place] [id number] [place] [address] Jan, Personal history of other venous thrombosis and embolism Z86.718 and History of DVT (deep vein thrombosis) Z86.718 [place] [address] [place] [id number] [place] [address] Jan, History of DVT (deep vein thrombosis) Z86.718 [place] [address] [place] [id number] [place] [address] December, History of DVT (deep vein thrombosis) Z86.718 [place] [address] [place] [id number] [place], [place] [address] December, History of DVT (deep vein thrombosis) Z86.718 [place] [address] [place] [id number] [place] [address] Dec, History of DVT (deep vein thrombosis) Z86.718 [place] [address] [place] [id number] [place] [address] Oct, History of DVT (deep vein thrombosis) Z86.718 [place] [address] [place] [id number] [place], [place] [address] Oct, History of DVT (deep vein thrombosis) Z86.718 ; Mixed hyperlipidemia E78.2 ; Impacted cerumen of right ear H61.21 ; Encounter for immunization Z23 and Hyperlipidemia E78.5 [place] [address] [place] [id number] [place] [address] Sep, History of DVT (deep vein thrombosis) Z86.718 ; Mixed hyperlipidemia E78.2 ; Impacted cerumen of right ear H61.21 ; Encounter for immunization Z23 and Hyperlipidemia E78.5 [place] [address] [address] Aug, History of DVT (deep vein thrombosis) Z86.718 and Acute nasopharyngitis J00 [place] [address] [address] Aug, Bronchitis J40 and History of DVT (deep vein thrombosis) Z86.718 [place] [address] [address] Aug, History of DVT (deep vein thrombosis) Z86.718 and Pure hypercholesterolemia E78.00 [place] [address] [address] Aug, Mixed hyperlipidemia E78.2 and History of DVT (deep vein thrombosis) Z86.718 [place] [address] [address] Aug, Mixed hyperlipidemia E78.2 [place] [address] [address] Jul, Encounter for immunization Z23 [place] [address] [address] Jul, History of DVT (deep vein thrombosis) Z86.718 [place] [address] [address] Jul, History of DVT (deep vein thrombosis) Z86.718 and Encounter for immunization Z23 [place] [address] [address] May, [place] [address] [place] [address] May, History of DVT (deep vein thrombosis) Z86.718 [facility] [address] [place] [id number] [place] [address] Apr, History of DVT (deep vein thrombosis) Z86.718 [facility] [address] [place] [id number] [place] [address] Mar, History of DVT (deep vein thrombosis) Z86.718 [facility] [address] [place] [id number] [place] [address] Jan, History of DVT (deep vein thrombosis) Z86.718 [place] [address] [place] [id number] [place] [address] December, [place] [address] [place] [id number] [place] [address] December, History of DVT (deep vein thrombosis) Z86.718 and Hyperlipidemia E78.5 [place] [address] [place] [id number] [place] [address] Dec, History of DVT (deep vein thrombosis) Z86.718 ; Impacted cerumen of right ear H61.21 and Hyperlipidemia E78.5 [place] [address] [place] [address] Dec, DVT (deep venous thrombosis) I82.409 [place] [address] [place] [id number] [place] [address] Dec, DVT (deep venous thrombosis) I82.409 [place] [address] [place] [id number] [place] [address] Oct, DVT (deep venous thrombosis) I82.409 [place] [address] [place] [id number] [place] [address] Oct, DVT (deep venous thrombosis) I82.409 [place] [address] [place] [id number] [place] [address] Oct, [place] [address] [facility] [id number] [address] Oct, History of DVT (deep vein thrombosis) Z86.718 [place] [address] [facility] [id number] [address] Oct, DVT (deep venous thrombosis) I82.409 [place] [address] [facility] [id number], [place] [address] Oct, History of DVT (deep vein thrombosis) Z86.718 [place] [address] [facility] [id number] [address] Oct, History of DVT (deep vein thrombosis) Z86.718 IMMUNIZATIONS No Known Immunizations SOCIAL HISTORY Never Assessed REASON FOR VISIT Cough for two weeks--Quiana Cleveland MA PLAN OF CARE Activity Details Follow Up Reg appt Reason: VITAL SIGNS Height 73 in 2017-07-01 Weight 244.9 lbs 2017-07-01 Temperature 98.1 degrees Fahrenheit 2017-07-01 Heart Rate 82 bpm 2017-07-01 Respiratory Rate 18 2017-07-01 BMI 32.31 kg/m2 2017-07-01 Blood pressure systolic 122 mmHg 2017-07-01 Blood pressure diastolic 86 mmHg 2017-07-01 MEDICATIONS Medication Instructions Dosage Frequency Start Date End Date Duration Status Metrogel .75 Externally Once a day 1 application to affected area 24h Active Clobetasol Propionate 0.05 % Externally Twice a day 1 application to affected area 12h Active Zithromax Z-Alvin 250 MG Orally Once a day 2 tablets on the first day, then 1 tablet daily for 4 days 24h Jun, Jul, 5 day(s) Active Warfarin Sodium 4 MG Orally Once a day 1 tablet 24h Active PredniSONE 50 mg Orally Once a day 1 tablet 24h Jun, Jul, 05 days Active Warfarin Sodium 3 MG Orally, take with the 4 mg to equal 7mg Saturday, , Saturday, , Sat, Sat 1 tablet Active Promethazine-Codeine 6.25-10 MG/5ML Orally every 4 hrs, prn cough 1-2 tsp Aug, Active Voltaren 1 % Transdermal as needed Active Tylenol 325 MG Orally every 6 hrs 2 capsules as needed 6h Active Warfarin Sodium 5 mg Orally Once a day onSunday 1 tablet Active RESULTS Name Result Date Reference Range INR (IN HOUSE) 2017-07-01 INR 3.3 1.10 - 3.30 PREVIOUS INR 3.6 CURRENT COUMADIN DOSE 5 mg M-T-- F, 7mg S-W- NEW COUMADIN DOSE Lot # [id number] Exp date 10/02/2017 PROCEDURES Procedure Date Ordered Result Body Site PROTHROMBIN TIME Jul 01, 2017 [facility] VISIT ESTABLISHED PATIENT Jul 01, 2017 INSTRUCTIONS MEDICATIONS ADMINISTERED No Known Medications [...]
--- OUTSIDE RECORDS SUMMARY | 2019-03-17 19:11 | XMS REPORT ---
Author Author CHARLENE GARCIA Organization [facility] Address [address] [place] [address] Care Team Providers Care Boat Engine Mechanic Name Role Phone CHARLENE GARCIA Unavailable PROBLEMS Type Condition ICD9-CM Code ALT35-QW Code Onset Dates Condition Status SNOMED Code Problem Bronchitis J40 Active 25298446 Problem Pure hypercholesterolemia E78.00 Active 756209360 Problem History of DVT (deep vein thrombosis) Z86.718 Active 300289986 ALLERGIES No Information ENCOUNTERS Encounter Location Date Diagnosis [place] [address] [address] December, Medicare annual wellness visit, initial Z00.00 ; Pure hypercholesterolemia E78.00 ; History of DVT (deep vein thrombosis) Z86.718 and Encounter for immunization Z23 [place] [address] [address] December, History of DVT (deep vein thrombosis) Z86.718 [place] [address] [address] Oct, History of DVT (deep vein thrombosis) Z86.718 [place] [address] [address] Oct, History of DVT (deep vein thrombosis) Z86.718 [place] [address] [address] Sep, [place] [address] [address] Sep, Pure hypercholesterolemia E78.00 and History of DVT (deep vein thrombosis) Z86.718 [place] [address] [address] Sep, Pure hypercholesterolemia E78.00 [place] [address] [place] [id number] [place] [address] Aug, History of DVT (deep vein thrombosis) Z86.718 [place] [address] [place] [id number] [place] [address] Aug, Encounter for immunization Z23 [place] [address] [address] Jul, History of DVT (deep vein thrombosis) Z86.718 [place] [address] [address] Jun, History of DVT (deep vein thrombosis) Z86.718 and Bronchitis J40 [place] [address] [address] Jun, Personal history of other venous thrombosis and embolism Z86.718 and History of DVT (deep vein thrombosis) Z86.718 [place] [address] [place] [id number] [place] [address] Apr, Personal history of other venous thrombosis and embolism Z86.718 and History of DVT (deep vein thrombosis) Z86.718 [place] [address] [place] [id number] [place] [address] Mar, History of DVT (deep vein thrombosis) Z86.718 [place] [address] [place] [id number] [place] [address] Mar, Personal history of other venous thrombosis and embolism Z86.718 [place] [address] [place] [id number] [place] [address] Jan, History of DVT (deep vein thrombosis) Z86.718 [place] [address] [place] [id number] [place] [address] Jan, Acute nasopharyngitis J00 [place] [address] [address] Jan, History of DVT (deep vein thrombosis) Z86.718 and Bronchitis J40 [place] [address] [address] Jan, [place] [address] [address] Jan, History of DVT (deep vein thrombosis) Z86.718 [place] [address] [address] Jan, Personal history of other venous thrombosis and embolism Z86.718 and History of DVT (deep vein thrombosis) Z86.718 [place] [address] [address] Jan, Personal history of other venous thrombosis and embolism Z86.718 and History of DVT (deep vein thrombosis) Z86.718 [place] [address] [address] Jan, History of DVT (deep vein thrombosis) Z86.718 [place] [address] [address] December, History of DVT (deep vein thrombosis) Z86.718 [place] [address] [address] December, History of DVT (deep vein thrombosis) Z86.718 [place] [address] [place] [id number] [place] [address] Dec, History of DVT (deep vein thrombosis) Z86.718 [place] [address] [address] Oct, History of DVT (deep vein thrombosis) Z86.718 [place] [address] [place] [id number] [place] [address] Oct, History of DVT (deep vein thrombosis) Z86.718 ; Mixed hyperlipidemia E78.2 ; Impacted cerumen of right ear H61.21 ; Encounter for immunization Z23 and Hyperlipidemia E78.5 [place] [address] [place] [id number] Sep, History of DVT (deep vein thrombosis) Z86.718 ; Mixed hyperlipidemia E78.2 ; Impacted cerumen of right ear H61.21 ; Encounter for immunization Z23 and Hyperlipidemia E78.5 [place] [address] [address] Aug, History of DVT (deep vein thrombosis) Z86.718 and Acute nasopharyngitis J00 [place] [address] [address] Aug, Bronchitis J40 and History of DVT (deep vein thrombosis) Z86.718 [place] [address] [address] Aug, History of DVT (deep vein thrombosis) Z86.718 and Pure hypercholesterolemia E78.00 [place] [address] [address] Aug, Mixed hyperlipidemia E78.2 and History of DVT (deep vein thrombosis) Z86.718 [place] [address] [address] Aug, Mixed hyperlipidemia E78.2 [place] [address] [address] Jul, Encounter for immunization Z23 [place] [address] [address] Jul, History of DVT (deep vein thrombosis) Z86.718 [place] [address] [address] Jul, History of DVT (deep vein thrombosis) Z86.718 and Encounter for immunization Z23 [place] [address] [address] May, [facility] [address] [place] [address] May, History of DVT (deep vein thrombosis) Z86.718 [facility] [address] [place] [address] Apr, History of DVT (deep vein thrombosis) Z86.718 [place] [address] [place] [id number] [place] [address] Mar, History of DVT (deep vein thrombosis) Z86.718 [place] [address] [place] [id number] [place] [address] Jan, History of DVT (deep vein thrombosis) Z86.718 [place] [address] [place] [address] December, [place] [address] [place] [id number] [place] [address] December, History of DVT (deep vein thrombosis) Z86.718 and Hyperlipidemia E78.5 [place] [address] [place] [id number] [place] [address] Dec, History of DVT (deep vein thrombosis) Z86.718 ; Impacted cerumen of right ear H61.21 and Hyperlipidemia E78.5 [place] [address] [place] [address] Dec, DVT (deep venous thrombosis) I82.409 [place] [address] [place] [address] Dec, DVT (deep venous thrombosis) I82.409 [place] [address] [place] [id number] [place] [address] Oct, DVT (deep venous thrombosis) I82.409 [place] [address] [place] [address] Oct, DVT (deep venous thrombosis) I82.409 [facility] [address] [facility] [id number] [address] Oct, [facility] [address] [address] Oct, History of DVT (deep vein thrombosis) Z86.718 [facility] [address] [facility] [id number] [address] Oct, DVT (deep venous thrombosis) I82.409 [facility] [address] [facility] [id number] [address] Oct, History of DVT (deep vein thrombosis) Z86.718 [place] [address] [address] Oct, History of DVT (deep vein thrombosis) Z86.718 IMMUNIZATIONS No Known Immunizations SOCIAL HISTORY Never Assessed REASON FOR VISIT Lab (walk-in) PLAN OF CARE VITAL SIGNS MEDICATIONS Unknown Medications RESULTS Name Result Date Reference Range INR (IN HOUSE) 2017-08-09 INR 1.6 1.10 - 3.30 PREVIOUS INR 3.4 CURRENT COUMADIN DOSE NEW COUMADIN DOSE Lot # [id number] Exp date 12/2017 PROCEDURES Procedure Date Ordered Result Body Site PROTHROMBIN TIME Aug 09, 2017 INSTRUCTIONS MEDICATIONS ADMINISTERED No Known Medications [...]
--- OUTSIDE RECORDS SUMMARY | 2019-03-17 19:11 | XMS REPORT ---
Author Author CHARLENE GARCIA [facility] Address [address] [place] [address] Care Team Providers Care Heat Treater Apprentice Name Role Phone CHARLENE GARCIA Unavailable PROBLEMS Type Condition ICD9-CM Code HJW87-ZN Code Onset Dates Condition Status SNOMED Code Problem History of DVT (deep vein thrombosis) Z86.718 Active 953443016 Assessment History of DVT (deep vein thrombosis) Z86.718 May, Active 654993448 ALLERGIES No Known Allergies SOCIAL HISTORY No smoking Hx information available PLAN OF CARE VITAL SIGNS MEDICATIONS No Known Medications RESULTS Name Result Date Reference Range INR (IN HOUSE) 2016-05-25 INR 2.6 1.10 - 3.30 PREVIOUS INR 2.4 CURRENT COUMADIN DOSE SEE INTERNAL NOTE NEW COUMADIN DOSE Lot # [id number] Exp date 08/2016 PROCEDURES Procedure Date Ordered Related Diagnosis Body Site PROTHROMBIN TIME May 25, 2016 IMMUNIZATIONS No Known Immunizations
--- OUTSIDE RECORDS SUMMARY | 2019-03-17 19:11 | XMS REPORT ---
Author Author CHARLENE GARCIA [facility] Address [address] [place] [address] Care Team Providers Care Metal Melter Name Role Phone CHARLENE GARCIA Unavailable PROBLEMS Type Condition ICD9-CM Code TPS41-KO Code Onset Dates Condition Status SNOMED Code Problem Bronchitis J40 Active 50025026 Problem Pure hypercholesterolemia E78.00 Active 400597227 Problem History of DVT (deep vein thrombosis) Z86.718 Active 171571773 ALLERGIES No Information SOCIAL HISTORY Never Assessed [...]
--- OUTSIDE RECORDS SUMMARY | 2019-03-17 19:11 | XMS REPORT ---
Author Author CHARLENE GARCIA [facility] Address [address] [place] [address] Care Team Providers Care Community Health Coordinator Name Role Phone CHARLENE GARCIA Unavailable PROBLEMS Type Condition ICD9-CM Code JHC71-NK Code Onset Dates Condition Status SNOMED Code Problem Bronchitis J40 Active 06760100 Problem Pure hypercholesterolemia E78.00 Active 707859456 Problem History of DVT (deep vein thrombosis) Z86.718 Active 775340500 ALLERGIES Unknown Allergies SOCIAL HISTORY No smoking Hx information available PLAN OF CARE VITAL SIGNS MEDICATIONS Unknown Medications RESULTS Name Result Date Reference Range INR (IN HOUSE) 2016-10-02 INR 3.3 1.10 - 3.30 PREVIOUS INR 2.7 CURRENT COUMADIN DOSE 5mg Sun/7mg MTWTFS NEW COUMADIN DOSE Lot # [id number] Exp date Jul 2017 PROCEDURES Procedure Date Ordered Related Diagnosis Body Site PROTHROMBIN TIME Oct 02, 2016 IMMUNIZATIONS No Known Immunizations
--- OUTSIDE RECORDS SUMMARY | 2019-03-17 19:11 | XMS REPORT ---
Author Author CHARLENE GARCIA [facility] Address [address] [place] [address] Care Team Providers Care Local Area Network Administrator Name Role Phone CHARLENE GARCIA Unavailable PROBLEMS Type Condition ICD9-CM Code QYT26-OD Code Onset Dates Condition Status SNOMED Code Problem Bronchitis J40 Active 90563943 Problem Pure hypercholesterolemia E78.00 Active 855994810 Problem History of DVT (deep vein thrombosis) Z86.718 Active 570035965 ALLERGIES Unknown Allergies SOCIAL HISTORY No smoking Hx information available PLAN OF CARE VITAL SIGNS MEDICATIONS Unknown Medications RESULTS No Results PROCEDURES Procedure Date Ordered Related Diagnosis Body Site FLUZONE HIGH DOSE 65 AND UP 2015Jul 03, 2016 SINGLE IMMUNIZATION ADMIN Jul 03, 2016 PROTHROMBIN TIME Jul 03, 2016 IMMUNIZATIONS Vaccine Route Administration Date Status FLUZONE HIGH DOSE 65 AND UP 2015 IM Intramuscular Jul 03, 2016 Administered
--- OUTSIDE RECORDS SUMMARY | 2019-03-17 19:12 | XMS REPORT ---
Author KARLA [facility] eClinicalWorks Address Unknown Phone Unavailable Care Team Providers Care Recyclable Materials Distributor Name Role Phone KARLA BLOOM CP Unavailable Allergies No Known Allergies Problems Problem Type Condition Code Onset Dates Condition Status Problem History of DVT (deep vein thrombosis) Z86.718 Active Assessment Encounter for immunization Z23 Active Problem Hyperlipidemia E78.5 Active Medications No Known Medications Procedures Procedure Coding System Code Date SINGLE IMMUNIZATION ADMIN CPT-4 27942 Jul 12, 2016 TDAP (BOOSTRIX) CPT-4 41639 Jul 12, 2016 Results No Known Results Immunizations Vaccine Administration Date TDAP (BOOSTRIX) Jul 12, 2016 Summary Purpose eClinicalWorks Submission
--- OUTSIDE RECORDS SUMMARY | 2019-03-17 19:12 | XMS REPORT ---
Author Author CHARLENE GARCIA [facility] Address [address] [place] [address] Care Team Providers Care Drill Operator Automatic Name Role Phone CHARLENE GARCIA Unavailable PROBLEMS Type Condition ICD9-CM Code LKA26-MR Code Onset Dates Condition Status SNOMED Code Problem Bronchitis J40 Active 18613566 Problem Pure hypercholesterolemia E78.00 Active 473920553 Problem History of DVT (deep vein thrombosis) Z86.718 Active 954596383 ALLERGIES No Information ENCOUNTERS Encounter Location Date Diagnosis [place] [address] [address] Oct, History of DVT (deep vein thrombosis) Z86.718 [place] [address] [address] Oct, History of DVT (deep vein thrombosis) Z86.718 [place] [address] [address] Sep, [place] [address] [address] Sep, Pure hypercholesterolemia E78.00 and History of DVT (deep vein thrombosis) Z86.718 [place] [address] [address] Sep, Pure hypercholesterolemia E78.00 [place] [address] [address] Aug, History of DVT (deep vein thrombosis) Z86.718 [place] [address] [address] Aug, Encounter for immunization Z23 [place] [address] [address] Jul, History of DVT (deep vein thrombosis) Z86.718 [place] [address] [place] [id number] [place] [address] Jun, History of DVT (deep vein thrombosis) Z86.718 and Bronchitis J40 [place] [address] [place] [id number] [place] [address] Jun, Personal history of other venous thrombosis and embolism Z86.718 and History of DVT (deep vein thrombosis) Z86.718 [place] [address] [place] [id number] [place] [address] Apr, Personal history of other venous thrombosis and embolism Z86.718 and History of DVT (deep vein thrombosis) Z86.718 [place] [address] [place] [id number] [place] [address] Mar, History of DVT (deep vein thrombosis) Z86.718 [place] [address] [place] [id number] [place] [address] Mar, Personal history of other venous thrombosis and embolism Z86.718 [place] [address] [place] [id number] [place] [address] Jan, History of DVT (deep vein thrombosis) Z86.718 [place] [address] [place] [id number] [place] [address] Jan, Acute nasopharyngitis J00 [place] [address] [place] [id number] [place] [address] Jan, History of DVT (deep vein thrombosis) Z86.718 and Bronchitis J40 [place] [address] [place] [id number] [place] [address] Jan, [place] [address] [place] [id number] [place] [address] Jan, History of DVT (deep vein thrombosis) Z86.718 [place] [address] [place] [address] Jan, Personal history of other venous thrombosis and embolism Z86.718 and History of DVT (deep vein thrombosis) Z86.718 [place] [address] [place] [id number] [place] [address] Jan, Personal history of other venous thrombosis and embolism Z86.718 and History of DVT (deep vein thrombosis) Z86.718 [place] [address] [place] [id number] [place] [address] Jan, History of DVT (deep vein thrombosis) Z86.718 [place] [address] [place] [id number] [place] [address] December, History of DVT (deep vein thrombosis) Z86.718 [place] [address] [place] [id number] [place] [address] December, History of DVT (deep vein thrombosis) Z86.718 [place] [address] [place] [id number] [place] [address] Dec, History of DVT (deep vein thrombosis) Z86.718 [place] [address] [place] [id number] [place] [address] Oct, History of DVT (deep vein thrombosis) Z86.718 [place] [address] [place] [id number] [place] [address] Oct, History of DVT (deep vein thrombosis) Z86.718 ; Mixed hyperlipidemia E78.2 ; Impacted cerumen of right ear H61.21 ; Encounter for immunization Z23 and Hyperlipidemia E78.5 [place] [address] [place] [id number] [place] [address] Sep, History of DVT (deep vein thrombosis) Z86.718 ; Mixed hyperlipidemia E78.2 ; Impacted cerumen of right ear H61.21 ; Encounter for immunization Z23 and Hyperlipidemia E78.5 [place] [address] [place] [id number] [place] [address] Aug, History of DVT (deep vein thrombosis) Z86.718 and Acute nasopharyngitis J00 [place] [address] [place] [id number] [place] [address] Aug, Bronchitis J40 and History of DVT (deep vein thrombosis) Z86.718 [place] [address] [address] Aug, History of DVT (deep vein thrombosis) Z86.718 and Pure hypercholesterolemia E78.00 [place] [address] [address] Aug, Mixed hyperlipidemia E78.2 and History of DVT (deep vein thrombosis) Z86.718 [place] [address] [place] [id number] [place] [address] Aug, Mixed hyperlipidemia E78.2 [place] [address] [place] [id number] [place] [address] Jul, Encounter for immunization Z23 [place] [address] [address] Jul, History of DVT (deep vein thrombosis) Z86.718 [place] [address] [place] [id number] [place] [address] Jul, History of DVT (deep vein thrombosis) Z86.718 and Encounter for immunization Z23 [place] [address] [place] [id number] [place] [address] May, [place] [address] [address] May, History of DVT (deep vein thrombosis) Z86.718 [place] [address] [place] [id number] [place] [address] Apr, History of DVT (deep vein thrombosis) Z86.718 [place] [address] [place] [id number] [place] [address] Mar, History of DVT (deep vein thrombosis) Z86.718 [place] [address] [place] [id number] [place] [address] Jan, History of DVT (deep vein thrombosis) Z86.718 [place] [address] [place] [id number] [place] [address] December, [place] [address] [address] December, History of DVT (deep vein thrombosis) Z86.718 and Hyperlipidemia E78.5 [place] [address] [place] [id number] [place] [address] Dec, History of DVT (deep vein thrombosis) Z86.718 ; Impacted cerumen of right ear H61.21 and Hyperlipidemia E78.5 [place] [address] [place] [id number] [place] [address] Dec, DVT (deep venous thrombosis) I82.409 [place] [address] [place] [id number] [place] [address] Dec, DVT (deep venous thrombosis) I82.409 [place] [address] [place] [id number] [place] [address] Oct, DVT (deep venous thrombosis) I82.409 [place] [address] [place] [id number] [place] [address] Oct, DVT (deep venous thrombosis) I82.409 [place] [address] [place] [id number] [place] [address] Oct, [place] [address] [place] [id number] [place] [address] Oct, History of DVT (deep vein thrombosis) Z86.718 [place] [address] [place] [id number] [place] [address] Oct, DVT (deep venous thrombosis) I82.409 [facility] [place] [address] [facility] [id number] [place] [address] Oct, History of DVT (deep vein thrombosis) Z86.718 [facility] [place] [address] [facility] [id number] [place] [address] Oct, History of DVT (deep vein thrombosis) Z86.718 IMMUNIZATIONS No Known Immunizations SOCIAL HISTORY Never Assessed REASON FOR VISIT Lab (walk-in)--[facility] PLAN OF CARE VITAL SIGNS MEDICATIONS Unknown Medications RESULTS Name Result Date Reference Range INR (IN HOUSE) 2017-03-01 INR 3.7 1.10 - 3.30 PREVIOUS INR 1.9 CURRENT COUMADIN DOSE 5 mg sat, sat, sat/7mg , , , sat NEW COUMADIN DOSE Lot # [id number] Exp date 11/30/17 PROCEDURES Procedure Date Ordered Result Body Site PROTHROMBIN TIME March 01, 2017 INSTRUCTIONS MEDICATIONS ADMINISTERED No Known [...]
--- OUTSIDE RECORDS SUMMARY | 2019-03-17 19:12 | XMS REPORT ---
Author Author CHARLENE GARCIA [facility] Address [address] [place] [address] Care Team Providers Care Electronic Scale Subassembler Name Role Phone CHARLENE GARCIA Unavailable PROBLEMS Type Condition ICD9-CM Code ZEY68-JH Code Onset Dates Condition Status SNOMED Code Problem Bronchitis J40 Active 89071638 Problem Pure hypercholesterolemia E78.00 Active 462650185 Problem History of DVT (deep vein thrombosis) Z86.718 Active 392363241 ALLERGIES No Information SOCIAL HISTORY Never Assessed [...]
--- OUTSIDE RECORDS SUMMARY | 2019-03-17 19:12 | XMS REPORT ---
Author Author CHARLENE GARCIA Organization [facility] Address [address] [place] [address] Care Team Providers Care Wire Spring Relay Adjuster Name Role Phone CHARLENE GARCIA Unavailable PROBLEMS Type Condition ICD9-CM Code PQV79-KR Code Onset Dates Condition Status SNOMED Code Problem Bronchitis J40 Active 52601525 Problem Pure hypercholesterolemia E78.00 Active 707397874 Problem History of DVT (deep vein thrombosis) Z86.718 Active 038712348 ALLERGIES No Known Allergies ENCOUNTERS Encounter Location Date Diagnosis [place] [address] [address] December, Medicare annual wellness visit, initial Z00.00 ; Pure hypercholesterolemia E78.00 ; History of DVT (deep vein thrombosis) Z86.718 and Encounter for immunization Z23 [place] [address] [address] December, History of DVT (deep vein thrombosis) Z86.718 [place] [address] [address] Oct, History of DVT (deep vein thrombosis) Z86.718 [place] [address] [address] Oct, History of DVT (deep vein thrombosis) Z86.718 [place] [address] [address] Sep, [place] [address] [address] Sep, Pure hypercholesterolemia E78.00 and History of DVT (deep vein thrombosis) Z86.718 [place] [address] [address] Sep, Pure hypercholesterolemia E78.00 [place] [address] [place] [id number] [place] [address] Aug, History of DVT (deep vein thrombosis) Z86.718 [place] [address] [place] [id number] [place] [address] Aug, Encounter for immunization Z23 [place] [address] [address] Jul, History of DVT (deep vein thrombosis) Z86.718 [place] [address] [address] Jun, History of DVT (deep vein thrombosis) Z86.718 and Bronchitis J40 [place] [address] [address] Jun, Personal history of other venous thrombosis and embolism Z86.718 and History of DVT (deep vein thrombosis) Z86.718 [place] [address] [place] [id number] [place] [address] Apr, Personal history of other venous thrombosis and embolism Z86.718 and History of DVT (deep vein thrombosis) Z86.718 [place] [address] [place] [id number] [place] [address] Mar, History of DVT (deep vein thrombosis) Z86.718 [place] [address] [place] [id number] [place] [address] Mar, Personal history of other venous thrombosis and embolism Z86.718 [place] [address] [place] [id number] [place] [address] Jan, History of DVT (deep vein thrombosis) Z86.718 [place] [address] [place] [id number] [place] [address] Jan, Acute nasopharyngitis J00 [place] [address] [place] [address] Jan, History of DVT (deep vein thrombosis) Z86.718 and Bronchitis J40 [place] [address] [address] Jan, [place] [address] [address] Jan, History of DVT (deep vein thrombosis) Z86.718 [place] [address] [address] Jan, Personal history of other venous thrombosis and embolism Z86.718 and History of DVT (deep vein thrombosis) Z86.718 [place] [address] [address] Jan, Personal history of other venous thrombosis and embolism Z86.718 and History of DVT (deep vein thrombosis) Z86.718 [place] [address] [address] Jan, History of DVT (deep vein thrombosis) Z86.718 [place] [address] [address] December, History of DVT (deep vein thrombosis) Z86.718 [place] [address] [address] December, History of DVT (deep vein thrombosis) Z86.718 [place] [address] [address] Dec, History of DVT (deep vein thrombosis) Z86.718 [place] [address] [address] Oct, History of DVT (deep vein thrombosis) Z86.718 [place] [address] [address] Oct, History of DVT (deep vein thrombosis) Z86.718 ; Mixed hyperlipidemia E78.2 ; Impacted cerumen of right ear H61.21 ; Encounter for immunization Z23 and Hyperlipidemia E78.5 [place] [address] [place] [id number] Sep, History of DVT (deep vein thrombosis) Z86.718 ; Mixed hyperlipidemia E78.2 ; Impacted cerumen of right ear H61.21 ; Encounter for immunization Z23 and Hyperlipidemia E78.5 [place] [address] [address] Aug, History of DVT (deep vein thrombosis) Z86.718 and Acute nasopharyngitis J00 [place] [address] [place] [address] Aug, Bronchitis J40 and History of DVT (deep vein thrombosis) Z86.718 [place] [address] [address] Aug, History of DVT (deep vein thrombosis) Z86.718 and Pure hypercholesterolemia E78.00 [place] [address] [address] Aug, Mixed hyperlipidemia E78.2 and History of DVT (deep vein thrombosis) Z86.718 [place] [address] [address] Aug, Mixed hyperlipidemia E78.2 [place] [address] [address] Jul, Encounter for immunization Z23 [place] [address] [address] Jul, History of DVT (deep vein thrombosis) Z86.718 [place] [address] [place] [id number] Jul, History of DVT (deep vein thrombosis) Z86.718 and Encounter for immunization Z23 [place] [address] [address] May, [facility] [address] [place] [address] May, History of DVT (deep vein thrombosis) Z86.718 [facility] [address] [place] [address] Apr, History of DVT (deep vein thrombosis) Z86.718 [place] [address] [place] [id number] [place] [address] Mar, History of DVT (deep vein thrombosis) Z86.718 [place] [address] [place] [id number] [place] [address] Jan, History of DVT (deep vein thrombosis) Z86.718 [place] [address] [place] [id number] [place] [address] December, [place] [address] [place] [id number] [place] [address] December, History of DVT (deep vein thrombosis) Z86.718 and Hyperlipidemia E78.5 [place] [address] [place] [id number] [place] [address] Dec, History of DVT (deep vein thrombosis) Z86.718 ; Impacted cerumen of right ear H61.21 and Hyperlipidemia E78.5 [place] [address] [place] [address] Dec, DVT (deep venous thrombosis) I82.409 [place] [address] [place] [address] Dec, DVT (deep venous thrombosis) I82.409 [place] [address] [place] [id number] [place] [address] Oct, DVT (deep venous thrombosis) I82.409 [place] [address] [place] [address] Oct, DVT (deep venous thrombosis) I82.409 [facility] [address] [facility] [id number], [place] [address] Oct, [facility] [address] [id number] [address] Oct, History of DVT (deep vein thrombosis) Z86.718 [facility] [address] [facility] [id number], [place] [address] Oct, DVT (deep venous thrombosis) I82.409 [facility] [address] [facility] [id number], [place] [address] Oct, History of DVT (deep vein thrombosis) Z86.718 [facility] [address] [id number] [address] Oct, History of DVT (deep vein thrombosis) Z86.718 IMMUNIZATIONS Vaccine Route Administration Date Status FLUARIX QUAD (3 AND UP) 2017 IM Intramuscular Aug 05, 2017 Administered SOCIAL HISTORY Never Assessed REASON FOR VISIT Flu shot CBrumbackRN PLAN OF CARE VITAL SIGNS MEDICATIONS Unknown Medications RESULTS No Results PROCEDURES Procedure Date Ordered Result Body Site FLUARIX QUAD (3 AND UP) 2016Aug 05, 2017 SINGLE IMMUNIZATION ADMIN Aug 05, 2017 INSTRUCTIONS MEDICATIONS ADMINISTERED No Known Medications [...]
--- OUTSIDE RECORDS SUMMARY | 2019-03-17 19:12 | XMS REPORT ---
Author Author CHARLENE GARCIA [facility] Address [address] [place] [address] Care Team Providers Care Kiln Pusher Name Role Phone CHARLENE GARCIA Unavailable PROBLEMS Type Condition ICD9-CM Code DKH66-GB Code Onset Dates Condition Status SNOMED Code Problem Bronchitis J40 Active 78762991 Problem Pure hypercholesterolemia E78.00 Active 454639682 Problem History of DVT (deep vein thrombosis) Z86.718 Active 999912459 ALLERGIES No Information ENCOUNTERS Encounter Location Date Diagnosis [place] [address] [address] Oct, History of DVT (deep vein thrombosis) Z86.718 [place] [address] [address] Oct, History of DVT (deep vein thrombosis) Z86.718 [place] [address] [address] Sep, [place] [address] [address] Sep, Pure hypercholesterolemia E78.00 and History of DVT (deep vein thrombosis) Z86.718 [place] [address] [address] Sep, Pure hypercholesterolemia E78.00 [place] [address] [address] Aug, History of DVT (deep vein thrombosis) Z86.718 [place] [address] [address] Aug, Encounter for immunization Z23 [place] [address] [address] Jul, History of DVT (deep vein thrombosis) Z86.718 [place] [address] [place] [address] [place] [address] Jun, History of DVT (deep vein thrombosis) Z86.718 and Bronchitis J40 [place] [address] [place] [address] [place] [address] Jun, Personal history of other venous thrombosis and embolism Z86.718 and History of DVT (deep vein thrombosis) Z86.718 [place] [address] [place] [address] [place] [address] Apr, Personal history of other venous thrombosis and embolism Z86.718 and History of DVT (deep vein thrombosis) Z86.718 [place] [address] [place] [address] [place] [address] Mar, History of DVT (deep vein thrombosis) Z86.718 [place] [address] [place] [address] [place] [address] Mar, Personal history of other venous thrombosis and embolism Z86.718 [place] [address] [place] [address] [place] [address] Jan, History of DVT (deep vein thrombosis) Z86.718 [place] [address] [place] [id number] [place] [address] Jan, Acute nasopharyngitis J00 [place] [address] [place] [id number] [place] [address] Jan, History of DVT (deep vein thrombosis) Z86.718 and Bronchitis J40 [place] [address] [place] [id number] [place] [address] Jan, [place] [address] [place] [address] [place] [address] Jan, History of DVT (deep vein thrombosis) Z86.718 [place] [address] [place] [address] Jan, Personal history of other venous thrombosis and embolism Z86.718 and History of DVT (deep vein thrombosis) Z86.718 [place] [address] [place] [address] [place] [address] Jan, Personal history of other venous thrombosis and embolism Z86.718 and History of DVT (deep vein thrombosis) Z86.718 [place] [address] [place] [address] [place] [address] Jan, History of DVT (deep vein thrombosis) Z86.718 [place] [address] [place] [address] [place] [address] December, History of DVT (deep vein thrombosis) Z86.718 [place] [address] [place] [address] [place] [address] December, History of DVT (deep vein thrombosis) Z86.718 [place] [address] [place] [id number] [place] [address] Dec, History of DVT (deep vein thrombosis) Z86.718 [place] [address] [place] [address] [place] [address] Oct, History of DVT (deep vein thrombosis) Z86.718 [place] [address] [place] [address] [place] [address] Oct, History of DVT (deep vein thrombosis) Z86.718 ; Mixed hyperlipidemia E78.2 ; Impacted cerumen of right ear H61.21 ; Encounter for immunization Z23 and Hyperlipidemia E78.5 [place] [address] [place] [address] [place] [address] Sep, History of DVT (deep vein thrombosis) Z86.718 ; Mixed hyperlipidemia E78.2 ; Impacted cerumen of right ear H61.21 ; Encounter for immunization Z23 and Hyperlipidemia E78.5 [place] [address] [place] [address] [place] [address] Aug, History of DVT (deep vein thrombosis) Z86.718 and Acute nasopharyngitis J00 [place] [address] [place] [address] [place] [address] Aug, Bronchitis J40 and History of DVT (deep vein thrombosis) Z86.718 [place] [address] [address] Aug, History of DVT (deep vein thrombosis) Z86.718 and Pure hypercholesterolemia E78.00 [place] [address] [address] Aug, Mixed hyperlipidemia E78.2 and History of DVT (deep vein thrombosis) Z86.718 [place] [address] [place] [address] [place] [address] Aug, Mixed hyperlipidemia E78.2 [place] [address] [place] [address] [place] [address] Jul, Encounter for immunization Z23 [place] [address] [address] Jul, History of DVT (deep vein thrombosis) Z86.718 [place] [address] [place] [address] [place] [address] Jul, History of DVT (deep vein thrombosis) Z86.718 and Encounter for immunization Z23 [place] [address] [place] [address] [place] [address] May, [place] [address] [address] May, History of DVT (deep vein thrombosis) Z86.718 [place] [address] [place] [address] [place] [address] Apr, History of DVT (deep vein thrombosis) Z86.718 [place] [address] [place] [address] [place] [address] Mar, History of DVT (deep vein thrombosis) Z86.718 [place] [address] [place] [address] [place] [address] Jan, History of DVT (deep vein thrombosis) Z86.718 [place] [address] [place] [id number] [place] [address] December, [place] [address] [address] December, History of DVT (deep vein thrombosis) Z86.718 and Hyperlipidemia E78.5 [place] [address] [place] [address] [place] [address] Dec, History of DVT (deep vein thrombosis) Z86.718 ; Impacted cerumen of right ear H61.21 and Hyperlipidemia E78.5 [place] [address] [place] [address] [place] [address] Dec, DVT (deep venous thrombosis) I82.409 [place] [address] [place] [address] [place] [address] Dec, DVT (deep venous thrombosis) I82.409 [place] [address] [place] [address] [place] [address] Oct, DVT (deep venous thrombosis) I82.409 [place] [address] [place] [address] [place] [address] Oct, DVT (deep venous thrombosis) I82.409 [place] [address] [place] [address] [place] [address] Oct, [place] [address] [place] [address] [place] [address] Oct, History of DVT (deep vein thrombosis) Z86.718 [place] [address] [place] [address] [place] [address] Oct, DVT (deep venous thrombosis) I82.409 [facility] [address] [facility] [id number] [place] [address] Oct, History of DVT (deep vein thrombosis) Z86.718 [facility] [address] [facility] [id number] [place] [address] Oct, History of DVT (deep vein thrombosis) Z86.718 IMMUNIZATIONS No Known Immunizations SOCIAL HISTORY Never Assessed REASON FOR VISIT Lab (walk-in) PLAN OF CARE VITAL SIGNS MEDICATIONS Unknown Medications RESULTS Name Result Date Reference Range INR (IN HOUSE) 2017-03-04 INR 2.1 1.10 - 3.30 PREVIOUS INR 3.7 CURRENT COUMADIN DOSE 5mg SWF/7mg SMTT NEW COUMADIN DOSE Lot # [id number] Exp date Nov 17 PROCEDURES Procedure Date Ordered Result Body Site PROTHROMBIN TIME March 04, 2017 INSTRUCTIONS MEDICATIONS ADMINISTERED No Known Medications [...]
--- OUTSIDE RECORDS SUMMARY | 2019-03-17 19:12 | XMS REPORT ---
Author Author CHARLENE GARCIA [facility] Address [address] [place] [address] Care Team Providers Care Small Parts Shaper Operator Name Role Phone CHARLENE GARCIA Unavailable PROBLEMS Type Condition ICD9-CM Code XPU29-OI Code Onset Dates Condition Status SNOMED Code Problem Pure hypercholesterolemia E78.00 Active 934523413 Problem History of DVT (deep vein thrombosis) Z86.718 Active 910684081 Assessment Mixed hyperlipidemia E78.2 Aug, Active 584472799 ALLERGIES No Known Allergies SOCIAL HISTORY No smoking Hx information available PLAN OF CARE VITAL SIGNS MEDICATIONS No Known Medications RESULTS No Results PROCEDURES Procedure Date Ordered Related Diagnosis Body Site LAB NOT BILLED BY [facility] Aug 06, 2016 PROTHROMBIN TIME Aug 06, 2016 VENIPUNCT, ROUTINE* Aug 06, 2016 IMMUNIZATIONS No Known Immunizations
--- OUTSIDE RECORDS SUMMARY | 2019-03-17 19:12 | XMS REPORT ---
Author Author CHARLENE GARCIA [facility] Address [address] [place] [address] Care Team Providers Care Senior Sales Operations Analyst Name Role Phone CHARLENE GARCIA Unavailable PROBLEMS Type Condition ICD9-CM Code XXV33-WO Code Onset Dates Condition Status SNOMED Code Problem Bronchitis J40 Active 87139942 Problem Pure hypercholesterolemia E78.00 Active 488873181 Problem History of DVT (deep vein thrombosis) Z86.718 Active 468178905 ALLERGIES No Information SOCIAL HISTORY Never Assessed [...]
--- OUTSIDE RECORDS SUMMARY | 2019-03-17 19:13 | XMS REPORT ---
Author Author CHALRENE GARCIA [facility] Address [address] [place] [address] Care Team Providers Care Manager Meeting Name Role Phone CHARLENE GARCIA Unavailable PROBLEMS Type Condition ICD9-CM Code VAY50-HX Code Onset Dates Condition Status SNOMED Code Problem Bronchitis J40 Active 29295088 Problem Pure hypercholesterolemia E78.00 Active 716021111 Problem History of DVT (deep vein thrombosis) Z86.718 Active 348395396 ALLERGIES No Information SOCIAL HISTORY Never Assessed PLAN OF CARE VITAL SIGNS MEDICATIONS Unknown Medications RESULTS Name Result Date Reference Range INR (IN HOUSE) 2017-02-05 INR 2.7 1.10 - 3.30 PREVIOUS INR 3.3 CURRENT COUMADIN DOSE 5mg SWS/7mg MTTF NEW COUMADIN DOSE Lot # [id number] Exp date PROCEDURES Procedure Date Ordered Result Body Site PROTHROMBIN TIME February 05, 2017 IMMUNIZATIONS No Known Immunizations MEDICAL (GENERAL) HISTORY Type Description Date Medical History DVT-1999 Surgical History bilateral cataract surgery Surgical History detached retina surgeries x 2 Left eye Surgical History reattach the lens in right eye x 2 Surgical History tonsiillectomy Surgical History hip replacement-left hip 12/2014 Hospitalization History surgeries Hospitalization History DVT for 17 days
--- OUTSIDE RECORDS SUMMARY | 2019-03-17 19:13 | XMS REPORT | Continuity of Care Document ---
Author Organization Unknown Address Unknown Allergies There is no data. Medications There is no data. Problems Date Dx Coded Attending Type Code Diagnosis Diagnosed By 03/30/2015 Anil FLORES, Tania Reason 782.3 EDEMA Procedures There is no data. Results Test Result Range [facility] - 09/16/17 08:27 GLUCOSE 93 mg/dL 65-99 UREA NITROGEN (BUN) 27 mg/dL 7-25 CREATININE 1.45 mg/dL 0.70-1.25 eGFR NON-AFR. CITIZEN OF [place] 49 mL/min/1.73m2 > OR=60 eGFR 57 mL/min/1.73m2 > OR=60 BUN/CREATININE RATIO 19 (calc) 6-22 SODIUM 140 mmol/L 135-146 POTASSIUM 4.8 mmol/L 3.5-5.3 CHLORIDE 106 mmol/L 98-110 CARBON DIOXIDE 26 mmol/L 20-31 CALCIUM 9.1 mg/dL 8.6-10.3 PROTEIN, TOTAL 6.9 g/dL 6.1-8.1 ALBUMIN 4.4 g/dL 3.6-5.1 GLOBULIN 2.5 g/dL (calc) 1.9-3.7 ALBUMIN/GLOBULIN RATIO 1.8 (calc) 1.0-2.5 BILIRUBIN, TOTAL 0.5 mg/dL 0.2-1.2 ALKALINE PHOSPHATASE 74 U/L 40-115 AST 18 U/L 10-35 ALT 19 U/L 9-46 LIPID PANEL - 03/11/19 08:47 CHOLESTEROL, TOTAL 183 mg/dL <200 HDL CHOLESTEROL 48 mg/dL >40 TRIGLYCERIDES 238 mg/dL <150 LDL-CHOLESTEROL 99 mg/dL (calc) NRG CHOL/HDLC RATIO 3.8 (calc) <5.0 NON HDL CHOLESTEROL 135 mg/dL (calc) <130 CMP - 03/11/19 08:47 GLUCOSE 85 mg/dL 65-99 UREA NITROGEN (BUN) 28 mg/dL 7-25 CREATININE 1.59 mg/dL 0.70-1.25 eGFR NON-AFR. CITIZEN OF [place] 44 mL/min/1.73m2 > OR=60 eGFR 51 mL/min/1.73m2 > OR=60 BUN/CREATININE RATIO 18 (calc) 6-22 SODIUM 140 mmol/L 135-146 POTASSIUM 4.8 mmol/L 3.5-5.3 CHLORIDE 107 mmol/L 98-110 CARBON DIOXIDE 26 mmol/L 20-32 CALCIUM 9.0 mg/dL 8.6-10.3 PROTEIN, TOTAL 6.8 g/dL 6.1-8.1 ALBUMIN 4.2 g/dL 3.6-5.1 GLOBULIN 2.6 g/dL (calc) 1.9-3.7 ALBUMIN/GLOBULIN RATIO 1.6 (calc) 1.0-2.5 BILIRUBIN, TOTAL 0.4 mg/dL 0.2-1.2 ALKALINE PHOSPHATASE 81 U/L 40-115 AST 17 U/L 10-35 ALT 15 U/L 9-46 PT/INR - 03/11/19 08:47 INR 2.8 NRG PT 27.2 sec 9.0-11.5 TESTOSTERONE, TOTAL - 03/11/19 08:47 TESTOSTERONE, TOTAL, MALES (ADULT), [place] 296 ng/dL 250-827 PSA - 03/11/19 08:47 PSA, TOTAL 1.5 ng/mL < OR=4.0 Encounters ACCT No. Visit Date/Time Discharge Status Pt. Type Provider Facility Loc./Unit Complaint [id number] 03/28/2015 12:26:00 03/28/2015 23:59:00 DIS Outpatient Anil FLORES, Tania [facility] VCHF Non-Invas Lt Leg Edema [id number] 03/13/2019 09:00:00 03/13/2019 23:59:59 CLS Outpatient JOSE FLORES, CHARLENE [facility] [id number] 03/11/2019 08:00:00 Document Registration [id number] 09/16/2017 08:20:00 Document Registration
--- OUTSIDE RECORDS SUMMARY | 2019-03-17 19:13 | XMS REPORT ---
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 Name Role Phone CHARLENE GARCIA Unavailable PROBLEMS Type Condition ICD9-CM Code RGL56-HK Code Onset Dates Condition Status SNOMED Code Problem Bronchitis J40 Active 41573888 Problem Pure hypercholesterolemia E78.00 Active 898031392 Problem History of DVT (deep vein thrombosis) Z86.718 Active 183952065 ALLERGIES No Information ENCOUNTERS Encounter Location Date Diagnosis [place] [address] [address] Oct, History of DVT (deep vein thrombosis) Z86.718 [place] [address] [address] Oct, History of DVT (deep vein thrombosis) Z86.718 [place] [address] [address] Sep, [place] [address] [address] Sep, Pure hypercholesterolemia E78.00 and History of DVT (deep vein thrombosis) Z86.718 [place] [address] [address] Sep, Pure hypercholesterolemia E78.00 [place] [address] [address] Aug, History of DVT (deep vein thrombosis) Z86.718 [place] [address] [address] Aug, Encounter for immunization Z23 [place] [address] [address] Jul, History of DVT (deep vein thrombosis) Z86.718 [place] [address] [place] [id number] [place] [address] Jun, History of DVT (deep vein thrombosis) Z86.718 and Bronchitis J40 [place] [address] [place] [id number] [place] [address] Jun, Personal history of other venous thrombosis and embolism Z86.718 and History of DVT (deep vein thrombosis) Z86.718 [place] [address] [place] [id number] [place] [address] Apr, Personal history of other venous thrombosis and embolism Z86.718 and History of DVT (deep vein thrombosis) Z86.718 [place] [address] [place] [id number] [place] [address] Mar, History of DVT (deep vein thrombosis) Z86.718 [place] [address] [place] [id number] [place] [address] Mar, Personal history of other venous thrombosis and embolism Z86.718 [place] [address] [place] [id number] [place] [address] Jan, History of DVT (deep vein thrombosis) Z86.718 [place] [address] [place] [id number] [place] [address] Jan, Acute nasopharyngitis J00 [place] [address] [place] [id number] [place] [address] Jan, History of DVT (deep vein thrombosis) Z86.718 and Bronchitis J40 [place] [address] [place] [id number] [place] [address] Jan, [place] [address] [place] [id number] [place] [address] Jan, History of DVT (deep vein thrombosis) Z86.718 [place] [id number] [place] [address] Jan, Personal history of other venous thrombosis and embolism Z86.718 and History of DVT (deep vein thrombosis) Z86.718 [place] [address] [place] [id number] [place] [address] Jan, Personal history of other venous thrombosis and embolism Z86.718 and History of DVT (deep vein thrombosis) Z86.718 [place] [address] [place] [id number] [place] [address] Jan, History of DVT (deep vein thrombosis) Z86.718 [place] [address] [place] [id number] [place] [address] December, History of DVT (deep vein thrombosis) Z86.718 [place] [address] [place] [id number] [place] [address] December, History of DVT (deep vein thrombosis) Z86.718 [place] [address] [place] [id number] [place] [address] Dec, History of DVT (deep vein thrombosis) Z86.718 [place] [address] [place] [id number] [place] [address] Oct, History of DVT (deep vein thrombosis) Z86.718 [place] [address] [place] [id number] [place] [address] Oct, History of DVT (deep vein thrombosis) Z86.718 ; Mixed hyperlipidemia E78.2 ; Impacted cerumen of right ear H61.21 ; Encounter for immunization Z23 and Hyperlipidemia E78.5 [place] [address] [place] [id number] [place] [address] Sep, History of DVT (deep vein thrombosis) Z86.718 ; Mixed hyperlipidemia E78.2 ; Impacted cerumen of right ear H61.21 ; Encounter for immunization Z23 and Hyperlipidemia E78.5 [place] [address] [place] [id number] [place] [address] Aug, History of DVT (deep vein thrombosis) Z86.718 and Acute nasopharyngitis J00 [place] [address] [place] [id number] [place] [address] Aug, Bronchitis J40 and History of DVT (deep vein thrombosis) Z86.718 [place] [address] [address] Aug, History of DVT (deep vein thrombosis) Z86.718 and Pure hypercholesterolemia E78.00 [place] [address] [address] Aug, Mixed hyperlipidemia E78.2 and History of DVT (deep vein thrombosis) Z86.718 [place] [address] [place] [id number] [place] [address] Aug, Mixed hyperlipidemia E78.2 [place] [address] [place] [id number] [place] [address] Jul, Encounter for immunization Z23 [place] [address] [address] Jul, History of DVT (deep vein thrombosis) Z86.718 [place] [address] [place] [id number] [place] [address] Jul, History of DVT (deep vein thrombosis) Z86.718 and Encounter for immunization Z23 [place] [address] [place] [id number] [place] [address] May, [place] [address] [address] May, History of DVT (deep vein thrombosis) Z86.718 [place] [address] [place] [id number] [place] [address] Apr, History of DVT (deep vein thrombosis) Z86.718 [place] [address] [place] [id number] [place] [address] Mar, History of DVT (deep vein thrombosis) Z86.718 [place] [address] [place] [id number] [place] [address] Jan, History of DVT (deep vein thrombosis) Z86.718 [place] [address] [place] [id number] [place] [address] December, [place] [address] [address] December, History of DVT (deep vein thrombosis) Z86.718 and Hyperlipidemia E78.5 [place] [address] [place] [id number] [place] [address] Dec, History of DVT (deep vein thrombosis) Z86.718 ; Impacted cerumen of right ear H61.21 and Hyperlipidemia E78.5 [place] [address] [place] [id number] [place] [address] Dec, DVT (deep venous thrombosis) I82.409 [place] [address] [place] [id number] [place] [address] Dec, DVT (deep venous thrombosis) I82.409 [place] [address] [place] [id number] [place] [address] Oct, DVT (deep venous thrombosis) I82.409 [place] [address] [place] [id number] [place] [address] Oct, DVT (deep venous thrombosis) I82.409 [place] [address] [place] [id number] [place] [address] Oct, [place] [address] [place] [id number] [place] [address] Oct, History of DVT (deep vein thrombosis) Z86.718 [place] [address] [place] [id number] [place] [address] Oct, DVT (deep venous thrombosis) I82.409 [facility] [address] [facility] [id number] [place] [address] Oct, History of DVT (deep vein thrombosis) Z86.718 [facility] [address] [facility] [id number] [place] [address] Oct, History of DVT (deep vein thrombosis) Z86.718 IMMUNIZATIONS No Known Immunizations SOCIAL HISTORY Never Assessed REASON FOR VISIT Lab (walk-in)==[facility] PLAN OF CARE VITAL SIGNS MEDICATIONS Unknown Medications RESULTS Name Result Date Reference Range INR (IN HOUSE) 2017-03-08 INR 2.8 1.10 - 3.30 PREVIOUS INR 2.1 CURRENT COUMADIN DOSE 5mg SWF/7mg MTTHSAT NEW COUMADIN DOSE Lot # [id number] Exp date 11/30/17 PROCEDURES Procedure Date Ordered Result Body Site PROTHROMBIN TIME March 08, 2017 INSTRUCTIONS MEDICATIONS ADMINISTERED No Known Medications [...]
[2019-03-17 19:25] LABS: BILIRUBIN,URINE NEGATIVE (NEGATIVE); CLARITY,URINE CLEAR; COLOR,URINE YELLOW; GLUCOSE, URINE (UA) NEGATIVE (NEGATIVE); KETONES,URINE 1+ (NEGATIVE); LEUKOCYTE ESTERASE ,URINE 1+ (NEGATIVE); NITRITE,URINE NEGATIVE (NEGATIVE); PH,URINE 7 (5-9); PROTEIN,URINE 2+ (NEGATIVE); UROBILINOGEN,URINE NORMAL (NORMAL)
[2019-03-17] MEDS ORDERED: NS IV 500 ML 500 ML IV SCH (19:30)
[2019-03-17 19:31] LABS: BACTERIA,URINE TRACE /HPF; SQUAMOUS EPITHELIAL CELL,UR 0-2 /HPF; WBC,URINE 0-2 /HPF
[2019-03-17 19:39] LABS: AMPHETAMINE SCREEN, URINE NEGATIVE (NEGATIVE); BARBITURATE SCREEN URINE NEGATIVE (NEGATIVE); BENZODIAZEPINES SCREEN URINE NEGATIVE (NEGATIVE); CANNABINOID SCREEN, URINE NEGATIVE (NEGATIVE); COCAINE SCREEN URINE NEGATIVE (NEGATIVE); METHADONE STAT NEGATIVE (NEGATIVE); METHAMPHETAMINE SCREEN URINE S NEGATIVE (NEGATIVE); OPIATE SCREEN URINE NEGATIVE (NEGATIVE); OXYCODONE STAT NEGATIVE (NEGATIVE); PROPOXYPHENE STAT NEGATIVE (NEGATIVE); TRICYCLIC ANTIDEPRESSANTS SCRE NEGATIVE (NEGATIVE)
[2019-03-17 20:28] VITALS: BP 142/86
== END 2019-03-17 20:28 | disposition home or self-care (01) ==
LOC: ER 17:06
DX: G45.9 Transient cerebral ischemic attack, unspecified (principal); Z86.718 Personal history of other venous thrombosis and embolism; Z79.01 Long term (current) use of anticoagulants
CPT/HCPCS: 36415; 70450; 71045; 80053; 80306; 80320; 81000; 82962; 84484; 85025; 85379; 85610; 85730; 93005; 93041; 96361; 96374

== ENCOUNTER → 2019-11-16 | Outpatient (CLI) | payer MEDICARE ==
[~2019-11-16] MED LIST: PRAV40TA2; WARF3TAB56
--- NOTE | 2019-11-16 09:33 | Diagnostic Imaging Report ---
PROCEDURE: US Renal Bilateral. TECHNIQUE: Multiple real-time grayscale images were obtained over the kidneys in various projections bilaterally. INDICATION: Chronic kidney disease, stage III. FINDINGS: Right kidney measures 11.4 x 4.4 x 6.4 cm and the left kidney measures 9.4 x 5.0 x 4.5 cm. Cortical thickness and echogenicity is normal bilaterally. No calculi are seen. There is no hydronephrosis. The bladder is unremarkable. Bilateral ureteral jets were visualized. IMPRESSION: Unremarkable renal ultrasound. Dictated by: Dictated on workstation # [id number]
== END ==
LOC: RAD 08:55
PROVIDERS: ATTEND Internal Medicine Nephrology
DX: E78.49 Other hyperlipidemia (principal); N18.3 Chronic kidney disease, stage 3 (moderate); Z79.01 Long term (current) use of anticoagulants
CPT/HCPCS: 76770